=== PATIENT | male | born 1960 | race Caucasian/White ===

== ENCOUNTER → 2019-12-08 14:21 | Outpatient (CLI) | payer OTHER, SELFPAY ==
--- NOTE | 2019-12-08 14:46 | DI.RAD.S_ITS ---
PROCEDURE: XR FOOT LT MIN 3V INDICATIONS: foot pain getting worse/feels dislocated TECHNIQUE: 3 views of the foot were acquired. COMPARISON: None. FINDINGS: Bones: No fractures or dislocations. No suspicious bony lesions. Soft tissues: No tibiotalar joint effusion. Achilles tendon appears normal. IMPRESSION: No evidence acute bony abnormality of the left foot. If clinical suspicion and/or symptoms persist, further assessment with repeat plain films, or advanced imaging (e.g., CT, MRI, or bone scan) may be helpful for further assessment. Dictated by: Christ Fernández M.D. on 12/08/2019 at 15:35 Approved by: Christ Fernández M.D. on 12/08/2019 at 15:40
== END ==
PROVIDERS: PCP Registered Nurse; Referring Provider Registered Nurse; Visit Provider Registered Nurse
DX: M79.672 Pain in left foot (principal)
CPT/HCPCS: 73630

== ENCOUNTER 2020-02-10 11:15 | Outpatient (RCR) | payer OTHER, SELFPAY ==
--- NOTE | 2020-01-05 16:49 | PT.OIE ---
Current Diagnoses Pain in right hip (01/04/20) Stiffness of right hip, not elsewhere classified (01/04/20) Difficulty in walking, not elsewhere classified (01/04/20) Weakness (01/04/20) Past Medical History (Last Updated 12/20/19 @ 13:08 by MERARY Rice) Toe pain, left (Acute) Visit Care Team Role Provider Type MERARY Rice Attending Provider Advanced Principal Android Developer Primary Care Provider Referring Provider Specialty: Medical Address: [address] [place] [address], [facility] Email: [email or web address] Physical Therapy Initial Evaluation PT-OP-A Visit Information Start: 01/04/20 11:11 Freq: Status: Active Protocol: Document 01/04/20 11:12 SAK (Rec: 01/04/20 12:23 SAK [id number]) Out-Patient Physical Therapy Visit Information Visit Information Visit Type Initial Evaluation Visit Start Time 11:15 Visit Stop Time 12:12 Total Visit Minutes 57 Visit Number 1 Evaluation Information Evaluation Date 01/04/20 Precautions Precautions right sided hernia PT-OP-B Current Condition Start: 01/04/20 11:11 Freq: Status: Active Protocol: Document 01/04/20 11:12 SAK (Rec: 01/04/20 12:23 SAK [id number]) Current Condition History of Current Condition Onset Date 1 1/2 yrs Current Complaints right hip pain History of Current Condition immediate onset of pain while running around 1 1/2 yrs ago with no known cause, came and went, felt more with running more often past few months due to Covid19. Tends to swim more for exercise but due to pandemic has been running more . Around 26 of November had some sort of sciatica thing where I could hardly move. Hip pain is lateral some posterior. Has stopped running for about 1 month. Has been swimming [employer]. No numbness or tingling. Sits at desk for work. The pain gets worse with sitting at times. Plays upright base, tends to rest more on right LE. Wears shoe inserts halle, had recent toe fracture , occasional feeling of lateral toes left foot like it's dislocating. Hernia right side that needs to be repaired . Prior Treatments and Tests left toe fracture. Treatment Goals Patient/Caregiver Goals Minimize or eliminate pain Prior Functional Status Baseline Function- ADL's Independent Baseline Function- Mobility Independent Baseline Function- Gait independent no pain Baseline Function- Work/School no pain Baseline Function- Recreation/Hobbies swim, run, hike Current Functional Impairments (Reported) Functional Limitations- Work/School some increase pain with sitting at times; patient has 1 monitor forward, 1 to the left Functional Limitations- Recreation/ painful running Hobbies PT-OP-C Subjective Start: 01/04/20 11:11 Freq: Status: Active Protocol: Document 01/04/20 11:12 SAK (Rec: 01/05/20 14:30 SAK [id number]) Patient Questionnaires Lower Extremity Functional Scale LEFS Score 79% PT-OP-G Mobility & Gait Start: 01/04/20 11:11 Freq: Status: Active Protocol: Document 01/04/20 11:12 SAK (Rec: 01/05/20 14:30 SAK [id number]) OP Mobility Evaluation Functional Movements Squats Can get most of way into Corinne squat though with less mobility right vs left Running Assessment next session Other Functional Movements Instructed in need to examine his habits of positioning and movement PT-OP-J Posture/Palpation/Skin Start: 01/04/20 11:11 Freq: Status: Active Protocol: Document 01/04/20 11:12 SAK (Rec: 01/05/20 14:30 [facility] [id number]) Posture Evaluation Position Standing Head/C-Spine Posture Forward Head T-Spine Posture Increased Kyphosis L-Spine Posture Flattened Scapula Posture (L) Protracted,(R) Protracted Arm Posture (L) Internally Rotated,(R) Internally Rotated Pelvis Posture Posterior Tilted,(R) ASIS Posterior Weight Distribution Weight Shifted Left Knee Posture (R) Genu Varus,(L) Genu Valgus Ankle/Foot Posture (L) Neutral,(R) Neutral Palpation Assessment Location piriformis Palpation Location right Palpation Findings Tenderness,Trigger Point gluteus medius Palpation Location right Palpation Findings Tenderness IT band Palpation Location right Palpation Findings Tenderness Palpation Details priximal tenderness PT-OP-K Range of Motion Start: 01/04/20 11:11 Freq: Status: Active Protocol: Document 01/04/20 11:12 SAK (Rec: 01/05/20 14:30 SAK [id number]) Lumbar Spine Range of Motion Lumbar Spine Active Flexion 40 Extension 20 Rotation Left 40 Rotation Right 40 Lateral Flexion Left 45 Lateral Flexion Right 45 ROM Limitations Soft Tissue Tightness Hip Goniometric Range of Motion Hip right Testing Position Supine Straight Leg Raise 60 Extension 15 Internal Rotation 15 External Rotation 55 left Testing Position Supine Straight Leg Raise 65 Extension 15 Internal Rotation 20 External Rotation 60 Hip ROM Limitations Hip ROM Limitations Soft Tissue Tightness,Pain PT-OP-L Special Tests Start: 01/04/20 11:11 Freq: Status: Active Protocol: Document 01/04/20 11:12 [facility] (Rec: 01/05/20 14:30 [facility] [id number]) Special Tests Hip Special Tests Straight Leg Raise Test Results negative for radicular symptoms, HS tightness only Scour Test Test Results negative for hip joint pathology PT-OP-M Strength Start: 01/04/20 11:11 Freq: Status: Active Protocol: Document 01/04/20 11:12 [facility] (Rec: 01/05/20 14:30 [facility] [id number]) Hip Strength Hip Manual Muscle Testing Right Flexion (L2) 4- Good- Extension (S1) 4- Good- Abduction 4- Good- External Rotation 4- Good- Internal Rotation 4- Good- Left Flexion (L2) 4 Good Extension (S1) 4 Good Abduction 4- Good- Internal Rotation 4 Good Knee Strength Knee Manual Muscle Testing halle Flexion (S2) 5 Normal Extension (L3) 5 Normal PT-OP-Q Treatments Start: 01/04/20 11:11 Freq: Status: Active Protocol: Document 01/04/20 11:12 [facility] (Rec: 01/05/20 14:30 [facility] [id number]) Manual Therapy Treatment Soft Tissue Mobilization glut med Mobilization Type Instrument Assisted Body Position Supine Comments instructed in use of raquetball piriformis Mobilization Type Instrument Assisted Body Position Supine Comments instructed in use of raquetball at home 1 Body Location IT band Mobilization Type Instrument Assisted Intensity/Depth Moderate Body Position Sidelying Comments Instructed in use of raquetball or foam roller at home Self-Care/Home Management Treatment Education Patient Education Body Mechanics,Pain Management ,Posture Other Education Pay attention to habitual postures and movements including how he stands to play upright base Activities Self-Care/Home Management Activities use of ball, foam roller, ice, heat PT-OP-R Modalities Start: 08/11/20 11:11 Freq: Status: Active Protocol: Document 01/04/20 11:12 [facility] (Rec: 01/05/20 14:30 [facility] [id number]) Hot Pack/Cold Pack Treatment moist heat Location it band, piriformis Patient Position Hooklying Patient Tolerance Good Ultrasound Therapy Treatment piriformis, proximal IT band Treatment Duration (minutes) 8 Patient Position Prone Coupling Medium Ultrasound Gel Frequency Setting (mHz) 1 Mode Setting Continuous Intensity Setting (w/cm2) 1.4 PT-OP-T Assessment and Plan Start: 01/04/20 11:11 Freq: Status: Active Protocol: Document 01/04/20 11:12 [facility] (Rec: 01/05/20 14:30 [facility] [id number]) Physical Therapy Assessment Rehab Potential Rehabilitation Potential Excellent Evaluation Complexity Number of Personal Factors/Comorbidities 1-2 Number of Body Systems Impaired 3 Clinical Presentation at Evaluation Stable Impairments Impairments Activity Tolerance,Pain,Soft Tissue Mobility,Strength Goals Three Impairment weakness and decreased flexibility bilateral hips R>L Baby Doctor Goal (LTG) Patient flexibility and strength to be WNL bilateral hips with patient independent in HEP LTG Duration 03/05/20 Two Impairment Lower extremity functinal scale 79% Assisted Goal (LTG) Improve LEFS score to at least 92% including ability to resume typical running schedule without an increase in pain LTG Duration 03/05/20 One Impairment pain 6/10 right SI, piriformis , lateral hip Assisted Goal (LTG) Decrease pain to no greater than 1-2/10 with all usual activities LTG Duration 03/05/20 Assessment Summary Assessment Patient presents with function -limiting pain right lateral and posterior hip/SI with some radiating pain at times posterior thigh. He has weakness in his hips right greater than left, some pelvic asymmetry which appears due to muscle imbalances and feel his postural and movement habits may be contributory to his pain. Additionally will need to look at his footwear for running . Feel he would benefit from skilled physical therapy to address all impairment areas and return him to pain-free function. Physical Therapy Plan Frequency and Duration Frequency of Treatment 2x/Week Duration of Treatment 8 wks Plan of Care Start Date 01/04/20 Plan of Care End Date 03/05/20 Therapeutic Interventions Therapeutic Interventions Aquatic Therapy,Home Exercise Program,Manual Therapy, Neuromuscular Re-education, Patient/Caregiver Education, Self-Care/Home Management,Soft Tissue Mobilization,Taping, Therapeutic Activities, Therapeutic Exercises Modalities Cold Pack/Ice Massage,Electric Stimulation,Hot Packs, Iontophoresis,Ultrasound Next Visit Focus/Plan Next Note Type Treatment Note Next Visit Plan Review HEP, evaluate running form on treadmill, progress ther ex, manual treatment as indicated.
--- NOTE | 2020-01-05 16:49 | PT.OPPOC ---
Physical, Occupational & Speech Therapy At [facility] Current Diagnoses Pain in right hip (01/04/20) Stiffness of right hip, not elsewhere classified (01/04/20) Difficulty in walking, not elsewhere classified (01/04/20) Weakness (01/04/20) Visit Care Team Role Provider Type MERARY Rice Attending Provider Advanced Mathematics Faculty Member Primary Care Provider Referring Provider Specialty: Medical Address: [address] [place] [address], [facility] Email: [email or web address] Plan Of Care PT-OP-T Assessment and Plan Start: 01/04/20 11:11 Freq: Status: Active Protocol: Document 01/04/20 11:12 ALBERT (Rec: 01/05/20 14:30 SAK [id number]) Physical Therapy Assessment Rehab Potential Rehabilitation Potential Excellent Evaluation Complexity Number of Personal Factors/Comorbidities 1-2 Number of Body Systems Impaired 3 Clinical Presentation at Evaluation Stable Impairments Impairments Activity Tolerance,Pain,Soft Tissue Mobility,Strength Goals Three Impairment weakness and decreased flexibility bilateral hips R>L Construction Pit Worker Goal (LTG) Patient flexibility and strength to be WNL bilateral hips with patient independent in HEP LTG Duration 03/05/20 Two Impairment Lower extremity functinal scale 79% Construction Pit Worker Goal (LTG) Improve LEFS score to at least 92% including ability to resume typical running schedule without an increase in pain LTG Duration 03/05/20 One Impairment pain 6/10 right SI, piriformis , lateral hip Construction Pit Worker Goal (LTG) Decrease pain to no greater than 1-2/10 with all usual activities LTG Duration 03/05/20 Assessment Summary Assessment Patient presents with function -limiting pain right lateral and posterior hip/SI with some radiating pain at times posterior thigh. He has weakness in his hips right greater than left, some pelvic asymmetry which appears due to muscle imbalances and feel his postural and movement habits may be contributory to his pain. Additionally will need to look at his footwear for running . Feel he would benefit from skilled physical therapy to address all impairment areas and return him to pain-free function. Physical Therapy Plan Frequency and Duration Frequency of Treatment 2x/Week Duration of Treatment 8 wks Plan of Care Start Date 01/04/20 Plan of Care End Date 03/05/20 Therapeutic Interventions Therapeutic Interventions Aquatic Therapy,Home Exercise Program,Manual Therapy, Neuromuscular Re-education, Patient/Caregiver Education, Self-Care/Home Management,Soft Tissue Mobilization,Taping, Therapeutic Activities, Therapeutic Exercises Modalities Cold Pack/Ice Massage,Electric Stimulation,Hot Packs, Iontophoresis,Ultrasound Next Visit Focus/Plan Next Note Type Treatment Note Next Visit Plan Review HEP, evaluate running form on treadmill, progress ther ex, manual treatment as indicated. Plan of Care Dates Plan of Care Start Date 01/04/20 Plan of Care End Date 03/05/20 Electronically Signed by: Aline Presley, PT 01/05/20 [id number] Please Sign and Return: I have reviewed this Plan of Care and certify that the skilled therapy services above are required to meet the patient?s needs. Physician Signature Date Printed Name and Credentials Clinical Instructor Signature Printed Name and Credentials
--- NOTE | 2020-01-06 17:11 | PT.OTN ---
Current Diagnoses Pain in right hip (01/06/20) Stiffness of right hip, not elsewhere classified (01/06/20) Difficulty in walking, not elsewhere classified (01/06/20) Weakness (01/06/20) Physical Therapy Treatment Note PT-OP-A Visit Information Start: 01/04/20 11:11 Freq: Status: Active Protocol: Document 01/06/20 12:59 SAK (Rec: 01/06/20 13:51 SAK [id number]) Out-Patient Physical Therapy Visit Information Visit Information Visit Type Treatment Note Visit Start Time 13:00 Visit Stop Time 13:55 Total Visit Minutes 55 Visit Number 2 Evaluation Information Evaluation Date 01/04/20 Precautions Precautions right sided hernia PT-OP-B Current Condition Start: 01/04/20 11:11 Freq: Status: Active Protocol: Document 01/04/20 11:12 SAK (Rec: 01/04/20 12:23 SAK [id number]) Current Condition History of Current Condition Onset Date 1 1/2 yrs Current Complaints right hip pain History of Current Condition immediate onset of pain while running around 1 1/2 yrs ago with no known cause, came and went, felt more with running more often past few months due to Covid19. Tends to swim more for exercise but due to pandemic has been running more . Around 26 of November had some sort of sciatica thing where I could hardly move. Hip pain is lateral some posterior. Has stopped running for about 1 month. Has been swimming [employer] No numbness or tingling. Sits at desk for work. The pain gets worse with sitting at times. Plays upright base, tends to rest more on right LE. Wears shoe inserts halle, had recent toe fracture , occasional feeling of lateral toes left foot like it's dislocating. Hernia right side that needs to be repaired . Prior Treatments and Tests left toe fracture. Treatment Goals Patient/Caregiver Goals Minimize or eliminate pain Prior Functional Status Baseline Function- ADL's Independent Baseline Function- Mobility Independent Baseline Function- Gait independent no pain Baseline Function- Work/School no pain Baseline Function- Recreation/Hobbies swim, run, hike Current Functional Impairments (Reported) Functional Limitations- Work/School some increase pain with sitting at times; patient has 1 monitor forward, 1 to the left Functional Limitations- Recreation/ painful running Hobbies PT-OP-C Subjective Start: 01/04/20 11:11 Freq: Status: Active Protocol: Document 01/06/20 12:59 SAK (Rec: 01/06/20 13:51 SAK [id number]) OP-PT Subjective Patient Comments Patient Comments Reports felt ok after first treatment, felt ultrasound and heat helpful. Has done some of the stretches and used a foam roller as instructed, hasn't tried raquetball yet. Feels figure-4 stretch most helpful so far. PT-OP-G Mobility & Gait Start: 01/04/20 11:11 Freq: Status: Active Protocol: Document 01/04/20 11:12 SAK (Rec: 01/05/20 14:30 SAK [id number]) OP Mobility Evaluation Functional Movements Squats Can get most of way into Corinne squat though with less mobility right vs left Running Assessment next session Other Functional Movements Instructed in need to examine his habits of positioning and movement PT-OP-J Posture/Palpation/Skin Start: 01/04/20 11:11 Freq: Status: Active Protocol: Document 01/04/20 11:12 [facility] (Rec: 01/05/20 14:30 [facility] [id number]) Posture Evaluation Position Standing Head/C-Spine Posture Forward Head T-Spine Posture Increased Kyphosis L-Spine Posture Flattened Scapula Posture (L) Protracted,(R) Protracted Arm Posture (L) Internally Rotated,(R) Internally Rotated Pelvis Posture Posterior Tilted,(R) ASIS Posterior Weight Distribution Weight Shifted Left Knee Posture (R) Genu Varus,(L) Genu Valgus Ankle/Foot Posture (L) Neutral,(R) Neutral Palpation Assessment Location piriformis Palpation Location right Palpation Findings Tenderness,Trigger Point gluteus medius Palpation Location right Palpation Findings Tenderness IT band Palpation Location right Palpation Findings Tenderness Palpation Details priximal tenderness PT-OP-K Range of Motion Start: 01/04/20 11:11 Freq: Status: Active Protocol: Document 01/04/20 11:12 SAK (Rec: 01/05/20 14:30 SAK [id number]) Lumbar Spine Range of Motion Lumbar Spine Active Flexion 40 Extension 20 Rotation Left 40 Rotation Right 40 Lateral Flexion Left 45 Lateral Flexion Right 45 ROM Limitations Soft Tissue Tightness Hip Goniometric Range of Motion Hip right Testing Position Supine Straight Leg Raise 60 Extension 15 Internal Rotation 15 External Rotation 55 left Testing Position Supine Straight Leg Raise 65 Extension 15 Internal Rotation 20 External Rotation 60 Hip ROM Limitations Hip ROM Limitations Soft Tissue Tightness,Pain PT-OP-L Special Tests Start: 01/04/20 11:11 Freq: Status: Active Protocol: Document 01/04/20 11:12 SAK (Rec: 01/05/20 14:30 SAK [id number]) Special Tests Hip Special Tests Straight Leg Raise Test Results negative for radicular symptoms, HS tightness only Scour Test Test Results negative for hip joint pathology PT-OP-M Strength Start: 01/04/20 11:11 Freq: Status: Active Protocol: Document 01/04/20 11:12 SAK (Rec: 01/05/20 14:30 SAK [id number]) Hip Strength Hip Manual Muscle Testing Right Flexion (L2) 4- Good- Extension (S1) 4- Good- Abduction 4- Good- External Rotation 4- Good- Internal Rotation 4- Good- Left Flexion (L2) 4 Good Extension (S1) 4 Good Abduction 4- Good- Internal Rotation 4 Good Knee Strength Knee Manual Muscle Testing halle Flexion (S2) 5 Normal Extension (L3) 5 Normal PT-OP-Q Treatments Start: 01/04/20 11:11 Freq: Status: Active Protocol: Document 01/06/20 12:59 [facility] (Rec: 01/06/20 17:05 [facility] [id number]) Cardio Equipment Treadmill Duration (Minutes) 5 Speed 2.0 Incline 0 Other for gait evaluation, noted increased ER and eversion right Therapeutic Exercises Supine Exercises HS Side bilateral figure -4 Side left Reps/Minutes 2x30 Sitting Exercises piriformis stretch Side bilateral Reps/Minutes 2x30 Standing Exercises IT band stretch Side bilateral Reps/Minutes 2x30 Comments UE overhead HS stretch Side bilateral Equipment Used stair Reps/Minutes 2x30 Comments neutral and with IR HC stretch Side bilateral Equipment Used LUIS Reps/Minutes 3 min Comments active and passive Self-Care/Home Management Treatment Education Patient Education Home Exercise Program Other Education updated HEP Shown anatomy of hip via Ipad anatomy greta. Instructed to stretch when muscles warm as possible. PT-OP-R Modalities Start: 01/04/20 11:11 Freq: Status: Active Protocol: Document 01/06/20 12:59 SAK (Rec: 01/06/20 17:05 SAK [id number]) Hot Pack/Cold Pack Treatment moist heat Location it band, piriformis Patient Position Sidelying Patient Tolerance Good Ultrasound Therapy Treatment piriformis, proximal IT band Treatment Duration (minutes) 8 Patient Position Sidelying Coupling Medium Ultrasound Gel Frequency Setting (mHz) 1 Mode Setting Continuous Intensity Setting (w/cm2) 1.4 Comments left piriformis PT-OP-T Assessment and Plan Start: 01/04/20 11:11 Freq: Status: Active Protocol: Document 01/06/20 12:59 [facility] (Rec: 01/06/20 17:09 [facility] [id number]) Physical Therapy Assessment Goals Three Impairment weakness and decreased flexibility bilateral hips R>L Acting Teacher Goal (LTG) Patient flexibility and strength to be WNL bilateral hips with patient independent in HEP LTG Duration 03/05/20 Two Impairment Lower extremity functinal scale 79% Acting Teacher Goal (LTG) Improve LEFS score to at least 92% including ability to resume typical running schedule without an increase in pain LTG Duration 03/05/20 One Impairment pain 6/10 right SI, piriformis , lateral hip [facility] Goal (LTG) Decrease pain to no greater than 1-2/10 with all usual activities LTG Duration 03/05/20 Assessment Summary Assessment Best targeted stretches today figure -4 supine, seated hip ER stretch knee toward opposite shoulder, and standing IT band stretch. Palpable tightness right piriformis. Patient demonstrated good understanding of hip anatomy, verbalized we are zeroing in on this at end of treatment. Physical Therapy Plan Frequency and Duration Frequency of Treatment 2x/Week Duration of Treatment 8 wks Plan of Care Start Date 01/04/20 Plan of Care End Date 03/05/20 Therapeutic Interventions Therapeutic Interventions Aquatic Therapy,Home Exercise Program,Manual Therapy, Neuromuscular Re-education, Patient/Caregiver Education, Self-Care/Home Management,Soft Tissue Mobilization,Taping, Therapeutic Activities, Therapeutic Exercises Modalities Cold Pack/Ice Massage,Electric Stimulation,Hot Packs, Iontophoresis,Ultrasound Next Visit Focus/Plan Next Note Type Treatment Note Next Visit Plan manual DTM to right piriformis , continue ther ex for strengthening and flexibility of hips. Modalities PRN.
--- NOTE | 2020-01-13 10:30 | PT.OTN ---
Current Diagnoses Pain in right hip (01/13/20) Stiffness of right hip, not elsewhere classified (01/13/20) Difficulty in walking, not elsewhere classified (01/13/20) Weakness (01/13/20) Physical Therapy Treatment Note PT-OP-A Visit Information Start: 01/04/20 11:11 Freq: Status: Active Protocol: Document 01/13/20 10:05 DCW (Rec: 01/13/20 10:30 DCW [id number]) Out-Patient Physical Therapy Visit Information Visit Information Visit Type Treatment Note Visit Note 20 min late Visit Start Time 10:05 Visit Stop Time 10:30 Total Visit Minutes 25 Visit Number 3 Evaluation Information Evaluation Date 01/04/20 Precautions Precautions right sided hernia PT-OP-B Current Condition Start: 01/04/20 11:11 Freq: Status: Active Protocol: Document 01/04/20 11:12 SAK (Rec: 01/04/20 12:23 SAK [id number]) Current Condition History of Current Condition Onset Date 1 1/2 yrs Current Complaints right hip pain History of Current Condition immediate onset of pain while running around 1 1/2 yrs ago with no known cause, came and went, felt more with running more often past few months due to Covid19. Tends to swim more for exercise but due to pandemic has been running more . Around 26 of November had some sort of sciatica thing where I could hardly move. Hip pain is lateral some posterior. Has stopped running for about 1 month. Has been swimming [employer]. No numbness or tingling. Sits at desk for work. The pain gets worse with sitting at times. Plays upright base, tends to rest more on right LE. Wears shoe inserts halle, had recent toe fracture , occasional feeling of lateral toes left foot like it's dislocating. Hernia right side that needs to be repaired . Prior Treatments and Tests left toe fracture. Treatment Goals Patient/Caregiver Goals Minimize or eliminate pain Prior Functional Status Baseline Function- ADL's Independent Baseline Function- Mobility Independent Baseline Function- Gait independent no pain Baseline Function- Work/School no pain Baseline Function- Recreation/Hobbies swim, run, hike Current Functional Impairments (Reported) Functional Limitations- Work/School some increase pain with sitting at times; patient has 1 monitor forward, 1 to the left Functional Limitations- Recreation/ painful running Hobbies PT-OP-C Subjective Start: 01/04/20 11:11 Freq: Status: Active Protocol: Document 01/13/20 10:05 DCW (Rec: 01/13/20 10:30 DCW [id number]) OP-PT Subjective Patient Comments Patient Comments Pt arrives today with a new referral asking for US treatment of his foot. Unfortunately, due to his late arrival today, this will not be adddressed at this appointment, but at a later time. PT-OP-G Mobility & Gait Start: 01/04/20 11:11 Freq: Status: Active Protocol: Document 01/04/20 11:12 SAK (Rec: 01/05/20 14:30 SAK [id number]) OP Mobility Evaluation Functional Movements Squats Can get most of way into Corinne squat though with less mobility right vs left Running Assessment next session Other Functional Movements Instructed in need to examine his habits of positioning and movement PT-OP-J Posture/Palpation/Skin Start: 01/04/20 11:11 Freq: Status: Active Protocol: Document 01/04/20 11:12 SAK (Rec: 01/05/20 14:30 SAK [id number]) Posture Evaluation Position Standing Head/C-Spine Posture Forward Head T-Spine Posture Increased Kyphosis L-Spine Posture Flattened Scapula Posture (L) Protracted,(R) Protracted Arm Posture (L) Internally Rotated,(R) Internally Rotated Pelvis Posture Posterior Tilted,(R) ASIS Posterior Weight Distribution Weight Shifted Left Knee Posture (R) Genu Varus,(L) Genu Valgus Ankle/Foot Posture (L) Neutral,(R) Neutral Palpation Assessment Location piriformis Palpation Location right Palpation Findings Tenderness,Trigger Point gluteus medius Palpation Location right Palpation Findings Tenderness IT band Palpation Location right Palpation Findings Tenderness Palpation Details priximal tenderness PT-OP-K Range of Motion Start: 01/04/20 11:11 Freq: Status: Active Protocol: Document 01/04/20 11:12 SAK (Rec: 01/05/20 14:30 SAK [id number]) Lumbar Spine Range of Motion Lumbar Spine Active Flexion 40 Extension 20 Rotation Left 40 Rotation Right 40 Lateral Flexion Left 45 Lateral Flexion Right 45 ROM Limitations Soft Tissue Tightness Hip Goniometric Range of Motion Hip right Testing Position Supine Straight Leg Raise 60 Extension 15 Internal Rotation 15 External Rotation 55 left Testing Position Supine Straight Leg Raise 65 Extension 15 Internal Rotation 20 External Rotation 60 Hip ROM Limitations Hip ROM Limitations Soft Tissue Tightness,Pain PT-OP-L Special Tests Start: 01/04/20 11:11 Freq: Status: Active Protocol: Document 01/04/20 11:12 SAK (Rec: 01/05/20 14:30 SAK [id number]) Special Tests Hip Special Tests Straight Leg Raise Test Results negative for radicular symptoms, HS tightness only Scour Test Test Results negative for hip joint pathology PT-OP-M Strength Start: 01/04/20 11:11 Freq: Status: Active Protocol: Document 01/04/20 11:12 SAK (Rec: 01/05/20 14:30 SAK [id number]) Hip Strength Hip Manual Muscle Testing Right Flexion (L2) 4- Good- Extension (S1) 4- Good- Abduction 4- Good- External Rotation 4- Good- Internal Rotation 4- Good- Left Flexion (L2) 4 Good Extension (S1) 4 Good Abduction 4- Good- Internal Rotation 4 Good Knee Strength Knee Manual Muscle Testing halle Flexion (S2) 5 Normal Extension (L3) 5 Normal PT-OP-Q Treatments Start: 01/04/20 11:11 Freq: Status: Active Protocol: Document 01/13/20 10:05 DCW (Rec: 01/13/20 10:30 DCW [id number]) Therapeutic Exercises Supine Exercises HS Supine Exercise Name HS stretch Side bilateral figure -4 Supine Exercise Name Figure-4, Knee to opposite shoulder Side right Reps/Minutes 2x30 Manual Therapy Treatment Soft Tissue Mobilization piriformis Body Location R Piriformis Body Position Sidelying PT-OP-R Modalities Start: 01/04/20 11:11 Freq: Status: Active Protocol: Document 01/06/20 12:59 SAK (Rec: 01/06/20 17:05 SAK [id number]) Hot Pack/Cold Pack Treatment moist heat Location it band, piriformis Patient Position Sidelying Patient Tolerance Good Ultrasound Therapy Treatment piriformis, proximal IT band Treatment Duration (minutes) 8 Patient Position Sidelying Coupling Medium Ultrasound Gel Frequency Setting (mHz) 1 Mode Setting Continuous Intensity Setting (w/cm2) 1.4 Comments left piriformis PT-OP-T Assessment and Plan Start: 01/04/20 11:11 Freq: Status: Active Protocol: Document 01/13/20 10:05 DCW (Rec: 01/13/20 10:30 DCW [id number]) Physical Therapy Assessment Goals Three Impairment weakness and decreased flexibility bilateral hips R>L Project Development Director Goal (LTG) Patient flexibility and strength to be WNL bilateral hips with patient independent in HEP LTG Duration 03/05/20 Two Impairment Lower extremity functinal scale 79% Project Development Director Goal (LTG) Improve LEFS score to at least 92% including ability to resume typical running schedule without an increase in pain LTG Duration 03/05/20 One Impairment pain 6/10 right SI, piriformis , lateral hip [facility] Goal (LTG) Decrease pain to no greater than 1-2/10 with all usual activities LTG Duration 03/05/20 Assessment Summary Assessment Treatment extremely limited today, as he arrived 20 minutes late. Pt very sensitive to even light pressure on R piriformis. Did very well with knee-to- opposite shoulder stretching, felt it really pinpointed the problem area. Pt also refused heat today, in a hurry to get back home. Physical Therapy Plan Frequency and Duration Frequency of Treatment 2x/Week Duration of Treatment 8 wks Plan of Care Start Date 01/04/20 Plan of Care End Date 03/05/20 Therapeutic Interventions Therapeutic Interventions Aquatic Therapy,Home Exercise Program,Manual Therapy, Neuromuscular Re-education, Patient/Caregiver Education, Self-Care/Home Management,Soft Tissue Mobilization,Taping, Therapeutic Activities, Therapeutic Exercises Modalities Cold Pack/Ice Massage,Electric Stimulation,Hot Packs, Iontophoresis,Ultrasound Next Visit Focus/Plan Next Note Type Treatment Note Next Visit Plan manual DTM to right piriformis , continue ther ex for strengthening and flexibility of hips. Modalities PRN. Possible assessment of foot, per new referral
--- NOTE | 2020-01-17 10:30 | PT.OTN ---
Current Diagnoses Pain in right hip (01/17/20) Stiffness of right hip, not elsewhere classified (01/17/20) Difficulty in walking, not elsewhere classified (01/17/20) Weakness (01/17/20) Physical Therapy Treatment Note PT-OP-A Visit Information Start: 01/04/20 11:11 Freq: Status: Active Protocol: Document 01/17/20 09:45 SP (Rec: 01/17/20 11:37 SP [id number]) Out-Patient Physical Therapy Visit Information Visit Information Visit Type Treatment Note Visit Note Possible assessment of foot, per new referral. Visit Start Time 09:45 Visit Stop Time 10:30 Total Visit Minutes 45 Visit Number 4 Number of SONG AND DANCE PERFORMER Visits 1 PT-OP-B Current Condition Start: 01/04/20 11:11 Freq: Status: Active Protocol: Document 01/04/20 11:12 SAK (Rec: 01/04/20 12:23 SAK [id number]) Current Condition History of Current Condition Onset Date 1 1/2 yrs Current Complaints right hip pain History of Current Condition immediate onset of pain while running around 1 1/2 yrs ago with no known cause, came and went, felt more with running more often past few months due to Covid19. Tends to swim more for exercise but due to pandemic has been running more . Around 26 of November had some sort of sciatica thing where I could hardly move. Hip pain is lateral some posterior. Has stopped running for about 1 month. Has been swimming [employer]. No numbness or tingling. Sits at desk for work. The pain gets worse with sitting at times. Plays upright base, tends to rest more on right LE. Wears shoe inserts halle, had recent toe fracture , occasional feeling of lateral toes left foot like it's dislocating. Hernia right side that needs to be repaired . Prior Treatments and Tests left toe fracture. Treatment Goals Patient/Caregiver Goals Minimize or eliminate pain Prior Functional Status Baseline Function- ADL's Independent Baseline Function- Mobility Independent Baseline Function- Gait independent no pain Baseline Function- Work/School no pain Baseline Function- Recreation/Hobbies swim, run, hike Current Functional Impairments (Reported) Functional Limitations- Work/School some increase pain with sitting at times; patient has 1 monitor forward, 1 to the left Functional Limitations- Recreation/ painful running Hobbies PT-OP-C Subjective Start: 01/04/20 11:11 Freq: Status: Active Protocol: Document 01/17/20 09:45 SP (Rec: 01/17/20 11:37 SP [id number]) OP-PT Subjective Patient Comments Patient Comments 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 Pt stated R PF doing good today. Has been swimming [place] and went [place] over the weekend. Still wanting to know the route of R hip pain. PT-OP-G Mobility & Gait Start: 01/04/20 11:11 Freq: Status: Active Protocol: Document 01/04/20 11:12 SAK (Rec: 01/05/20 14:30 SAK [id number]) OP Mobility Evaluation Functional Movements Squats Can get most of way into Corinne squat though with less mobility right vs left Running Assessment next session Other Functional Movements Instructed in need to examine his habits of positioning and movement PT-OP-J Posture/Palpation/Skin Start: 01/04/20 11:11 Freq: Status: Active Protocol: Document 01/04/20 11:12 SAK (Rec: 01/05/20 14:30 SAK [id number]) Posture Evaluation Position Standing Head/C-Spine Posture Forward Head T-Spine Posture Increased Kyphosis L-Spine Posture Flattened Scapula Posture (L) Protracted,(R) Protracted Arm Posture (L) Internally Rotated,(R) Internally Rotated Pelvis Posture Posterior Tilted,(R) ASIS Posterior Weight Distribution Weight Shifted Left Knee Posture (R) Genu Varus,(L) Genu Valgus Ankle/Foot Posture (L) Neutral,(R) Neutral Palpation Assessment Location piriformis Palpation Location right Palpation Findings Tenderness,Trigger Point gluteus medius Palpation Location right Palpation Findings Tenderness IT band Palpation Location right Palpation Findings Tenderness Palpation Details priximal tenderness PT-OP-K Range of Motion Start: 01/04/20 11:11 Freq: Status: Active Protocol: Document 01/04/20 11:12 SAK (Rec: 01/05/20 14:30 SAK [id number]) Lumbar Spine Range of Motion Lumbar Spine Active Flexion 40 Extension 20 Rotation Left 40 Rotation Right 40 Lateral Flexion Left 45 Lateral Flexion Right 45 ROM Limitations Soft Tissue Tightness Hip Goniometric Range of Motion Hip right Testing Position Supine Straight Leg Raise 60 Extension 15 Internal Rotation 15 External Rotation 55 left Testing Position Supine Straight Leg Raise 65 Extension 15 Internal Rotation 20 External Rotation 60 Hip ROM Limitations Hip ROM Limitations Soft Tissue Tightness,Pain PT-OP-L Special Tests Start: 01/04/20 11:11 Freq: Status: Active Protocol: Document 01/04/20 11:12 SAK (Rec: 01/05/20 14:30 SAK [id number]) Special Tests Hip Special Tests Straight Leg Raise Test Results negative for radicular symptoms, HS tightness only Scour Test Test Results negative for hip joint pathology PT-OP-M Strength Start: 01/04/20 11:11 Freq: Status: Active Protocol: Document 01/04/20 11:12 SAK (Rec: 01/05/20 14:30 SAK [id number]) Hip Strength Hip Manual Muscle Testing Right Flexion (L2) 4- Good- Extension (S1) 4- Good- Abduction 4- Good- External Rotation 4- Good- Internal Rotation 4- Good- Left Flexion (L2) 4 Good Extension (S1) 4 Good Abduction 4- Good- Internal Rotation 4 Good Knee Strength Knee Manual Muscle Testing halle Flexion (S2) 5 Normal Extension (L3) 5 Normal PT-OP-Q Treatments Start: 01/04/20 11:11 Freq: Status: Active Protocol: Document 01/17/20 09:45 SP (Rec: 01/17/20 11:37 SP [id number]) Therapeutic Exercises Supine Exercises foam roll Supine Exercise Name HS, glut, ITB, calf, TS ext and roll Reps/Minutes 5 min Comments add HEP: cued slow safety pacing and proper form HS Supine Exercise Name HS stretch Side bilateral figure -4 Supine Exercise Name Figure-4, Knee to opposite shoulder Side right Reps/Minutes 2x30 Sitting Exercises QL stretch Sitting Exercise Name lat side bend Reps/Minutes 30 x2 Comments cued set up and proper form HS stretch Reps/Minutes 60 Sec prim lateral Comments cued hip hinge piriformis stretch Side bilateral Reps/Minutes 2x30 Standing Exercises HS stretch Standing Exercise Name HEP review Side bilateral Equipment Used table Reps/Minutes 2x30 Comments neutral and with IR PT-OP-R Modalities Start: 01/04/20 11:11 Freq: Status: Active Protocol: Document 01/06/20 12:59 SAK (Rec: 01/06/20 17:05 SAK [id number]) Hot Pack/Cold Pack Treatment moist heat Location it band, piriformis Patient Position Sidelying Patient Tolerance Good Ultrasound Therapy Treatment piriformis, proximal IT band Treatment Duration (minutes) 8 Patient Position Sidelying Coupling Medium Ultrasound Gel Frequency Setting (mHz) 1 Mode Setting Continuous Intensity Setting (w/cm2) 1.4 Comments left piriformis PT-OP-T Assessment and Plan Start: 01/04/20 11:11 Freq: Status: Active Protocol: Document 01/17/20 09:45 SP (Rec: 01/17/20 11:37 SP [id number]) Physical Therapy Assessment Goals Three Impairment weakness and decreased flexibility bilateral hips R>L Consumer Affairs Director Goal (LTG) Patient flexibility and strength to be WNL bilateral hips with patient independent in HEP LTG Duration 03/05/20 Two Impairment Lower extremity functinal scale 79% Consumer Affairs Director Goal (LTG) Improve LEFS score to at least 92% including ability to resume typical running schedule without an increase in pain LTG Duration 03/05/20 One Impairment pain 6/10 right SI, piriformis , lateral hip Consumer Affairs Director Goal (LTG) Decrease pain to no greater than 1-2/10 with all usual activities LTG Duration 03/05/20 Assessment Summary Assessment Gave purple slip to add more appts. Tx focused on HEP stretching and self STMs using foam roller has at home with good feedback results. Cuing given for set up and proper form to decrease reported R PF tightness. Pt found TS ext helped alot loosening up LS. Physical Therapy Plan Frequency and Duration Frequency of Treatment 2x/Week Duration of Treatment 8 wks Plan of Care Start Date 01/04/20 Plan of Care End Date 03/05/20 Therapeutic Interventions Therapeutic Interventions Aquatic Therapy,Home Exercise Program,Manual Therapy, Neuromuscular Re-education, Patient/Caregiver Education, Self-Care/Home Management,Soft Tissue Mobilization,Taping, Therapeutic Activities, Therapeutic Exercises Modalities Cold Pack/Ice Massage,Electric Stimulation,Hot Packs, Iontophoresis,Ultrasound Next Visit Focus/Plan Next Note Type Treatment Note Next Visit Plan Possible assessment of foot, per new referral next tx with PT!! Assess response to last tx: HEP stretching of hips and L/S review: added sup/seated/ standing stretches to HEP and self foam rolling to assist. Continue ther ex for strengthening and flexibility of hips next tx as tolerates. Modalities PRN.
--- NOTE | 2020-01-20 17:33 | PT.OTN ---
Current Diagnoses Pain in right hip (01/20/20) Stiffness of right hip, not elsewhere classified (01/20/20) Difficulty in walking, not elsewhere classified (01/20/20) Weakness (01/20/20) Physical Therapy Treatment Note PT-OP-A Visit Information Start: 01/04/20 11:11 Freq: Status: Active Protocol: Document 01/20/20 09:49 SAK (Rec: 01/20/20 10:33 SAK [id number]) Out-Patient Physical Therapy Visit Information Visit Information Visit Type Treatment Note Visit Start Time 09:45 Visit Stop Time 10:30 Total Visit Minutes 45 Visit Number 5 Number of INTERACTIVE MEDIA SPECIALIST Visits 0 Precautions Precautions right sided hernia PT-OP-B Current Condition Start: 01/04/20 11:11 Freq: Status: Active Protocol: Document 01/04/20 11:12 SAK (Rec: 01/04/20 12:23 [facility] [id number]) Current Condition History of Current Condition Onset Date 1 1/2 yrs Current Complaints right hip pain History of Current Condition immediate onset of pain while running around 1 1/2 yrs ago with no known cause, came and went, felt more with running more often past few months due to Covid19. Tends to swim more for exercise but due to pandemic has been running more . Around 26 of November had some sort of sciatica thing where I could hardly move. Hip pain is lateral some posterior. Has stopped running for about 1 month. Has been swimming heart [employer]. No numbness or tingling. Sits at desk for work. The pain gets worse with sitting at times. Plays upright base, tends to rest more on right LE. Wears shoe inserts halle, had recent toe fracture , occasional feeling of lateral toes left foot like it's dislocating. Hernia right side that needs to be repaired . Prior Treatments and Tests left toe fracture. Treatment Goals Patient/Caregiver Goals Minimize or eliminate pain Prior Functional Status Baseline Function- ADL's Independent Baseline Function- Mobility Independent Baseline Function- Gait independent no pain Baseline Function- Work/School no pain Baseline Function- Recreation/Hobbies swim, run, hike Current Functional Impairments (Reported) Functional Limitations- Work/School some increase pain with sitting at times; patient has 1 monitor forward, 1 to the left Functional Limitations- Recreation/ painful running Hobbies PT-OP-C Subjective Start: 01/04/20 11:11 Freq: Status: Active Protocol: Document 01/20/20 09:49 SAK (Rec: 01/20/20 10:33 SAK [id number]) OP-PT Subjective Patient Comments Patient Comments Lead Applier Dr. Odilon Ornelas ([facility]) recommended start with 5 ultrasound sessions to his foot, if helpful, do 5 more. Diagnosis neuroma. Patient states that at times feeling like his toe 3-4 left dislocating. Pain. PT-OP-G Mobility & Gait Start: 01/04/20 11:11 Freq: Status: Active Protocol: Document 01/04/20 11:12 SAK (Rec: 01/05/20 14:30 SAK [id number]) OP Mobility Evaluation Functional Movements Squats Can get most of way into Corinne squat though with less mobility right vs left Running Assessment next session Other Functional Movements Instructed in need to examine his habits of positioning and movement PT-OP-J Posture/Palpation/Skin Start: 01/04/20 11:11 Freq: Status: Active Protocol: Document 01/04/20 11:12 SAK (Rec: 01/05/20 14:30 [facility] [id number]) Posture Evaluation Position Standing Head/C-Spine Posture Forward Head T-Spine Posture Increased Kyphosis L-Spine Posture Flattened Scapula Posture (L) Protracted,(R) Protracted Arm Posture (L) Internally Rotated,(R) Internally Rotated Pelvis Posture Posterior Tilted,(R) ASIS Posterior Weight Distribution Weight Shifted Left Knee Posture (R) Genu Varus,(L) Genu Valgus Ankle/Foot Posture (L) Neutral,(R) Neutral Palpation Assessment Location piriformis Palpation Location right Palpation Findings Tenderness,Trigger Point gluteus medius Palpation Location right Palpation Findings Tenderness IT band Palpation Location right Palpation Findings Tenderness Palpation Details priximal tenderness PT-OP-K Range of Motion Start: 01/04/20 11:11 Freq: Status: Active Protocol: Document 01/04/20 11:12 SAK (Rec: 01/05/20 14:30 SAK [id number]) Lumbar Spine Range of Motion Lumbar Spine Active Flexion 40 Extension 20 Rotation Left 40 Rotation Right 40 Lateral Flexion Left 45 Lateral Flexion Right 45 ROM Limitations Soft Tissue Tightness Hip Goniometric Range of Motion Hip right Testing Position Supine Straight Leg Raise 60 Extension 15 Internal Rotation 15 External Rotation 55 left Testing Position Supine Straight Leg Raise 65 Extension 15 Internal Rotation 20 External Rotation 60 Hip ROM Limitations Hip ROM Limitations Soft Tissue Tightness,Pain PT-OP-L Special Tests Start: 01/04/20 11:11 Freq: Status: Active Protocol: Document 01/04/20 11:12 SAK (Rec: 01/05/20 14:30 SAK [id number]) Special Tests Hip Special Tests Straight Leg Raise Test Results negative for radicular symptoms, HS tightness only Scour Test Test Results negative for hip joint pathology PT-OP-M Strength Start: 01/04/20 11:11 Freq: Status: Active Protocol: Document 01/04/20 11:12 SAK (Rec: 01/05/20 14:30 SAK [id number]) Hip Strength Hip Manual Muscle Testing Right Flexion (L2) 4- Good- Extension (S1) 4- Good- Abduction 4- Good- External Rotation 4- Good- Internal Rotation 4- Good- Left Flexion (L2) 4 Good Extension (S1) 4 Good Abduction 4- Good- Internal Rotation 4 Good Knee Strength Knee Manual Muscle Testing halle Flexion (S2) 5 Normal Extension (L3) 5 Normal PT-OP-Q Treatments Start: 01/04/20 11:11 Freq: Status: Active Protocol: Document 01/20/20 09:49 [facility] (Rec: 01/20/20 10:33 [facility] [id number]) Therapeutic Exercises Supine Exercises IT band stretch Reps/Minutes 2x 30 Comments strap HS Supine Exercise Name HS stretch Side bilateral Equipment Used strap Sitting Exercises piriformis stretch Side bilateral Reps/Minutes 2x30 Manual Therapy Treatment Soft Tissue Mobilization glut med Body Location right Mobilization Type Instrument Assisted,Myofascial Release,Sustained Pressure Body Position Sidelying piriformis Body Location R Piriformis Mobilization Type Instrument Assisted,Myofascial Release,Rolling,Sustained Pressure Body Position Sidelying PT-OP-R Modalities Start: 01/04/20 11:11 Freq: Status: Active Protocol: Document 01/20/20 09:49 [facility] (Rec: 01/20/20 17:33 [facility] [id number]) Ultrasound Therapy Treatment left MTP 3rd and 4th toes Patient Position Prone Coupling Medium Ultrasound Gel Applicator Size (cm2) 2 Mode Setting Pulsed Duty Cycle 50% Intensity Setting (w/cm2) 1.0 Comments slight tingling sensation PT-OP-T Assessment and Plan Start: 01/04/20 11:11 Freq: Status: Active Protocol: Document 01/20/20 09:49 ALBERT (Rec: 01/20/20 10:33 [facility] [id number]) Physical Therapy Assessment Goals Three Impairment weakness and decreased flexibility bilateral hips R>L Ophthalmic Tech Goal (LTG) Patient flexibility and strength to be WNL bilateral hips with patient independent in HEP LTG Duration 03/05/20 Two Impairment Lower extremity functinal scale 79% Group Home Goal (LTG) Improve LEFS score to at least 92% including ability to resume typical running schedule without an increase in pain LTG Duration 03/05/20 One Impairment pain 6/10 right SI, piriformis , lateral hip Ophthalmic Tech Goal (LTG) Decrease pain to no greater than 1-2/10 with all usual activities LTG Duration 03/05/20 Assessment Summary Assessment Patient tolerated ultrasound to foot well though with reported mild tingling, not uncomfortable. Discussed footwear, potential interaction of hip and foot pain. Demonstrated good understanding of IT band stretch with strap and was issued written handout. Physical Therapy Plan Frequency and Duration Frequency of Treatment 2x/Week Duration of Treatment 8 wks Plan of Care Start Date 01/04/20 Plan of Care End Date 03/05/20 Therapeutic Interventions Therapeutic Interventions Aquatic Therapy,Home Exercise Program,Manual Therapy, Neuromuscular Re-education, Patient/Caregiver Education, Self-Care/Home Management,Soft Tissue Mobilization,Taping, Therapeutic Activities, Therapeutic Exercises Modalities Cold Pack/Ice Massage,Electric Stimulation,Hot Packs, Iontophoresis,Ultrasound Next Visit Focus/Plan Next Note Type Treatment Note Next Visit Plan Continue PT with ultrasound to left foot, continue progression of ther ex for right hip strength and flexibility.
--- NOTE | 2020-02-08 14:54 | PT.OTN ---
Current Diagnoses Pain in right hip (02/08/20) Stiffness of right hip, not elsewhere classified (02/08/20) Difficulty in walking, not elsewhere classified (02/08/20) Weakness (02/08/20) Physical Therapy Treatment Note PT-OP-A Visit Information Start: 01/04/20 11:11 Freq: Status: Active Protocol: Document 02/08/20 12:57 [facility] (Rec: 02/08/20 13:01 [facility] [id number]) Out-Patient Physical Therapy Visit Information Visit Information Visit Type Treatment Note Visit Start Time 11:20 Visit Stop Time 12:05 Total Visit Minutes 45 Visit Number 6 Number of MORTGAGE PROCESSING CLERK Visits 0 PT-OP-B Current Condition Start: 01/04/20 11:11 Freq: Status: Active Protocol: Document 01/04/20 11:12 SAK (Rec: 01/04/20 12:23 SAK [id number]) Current Condition History of Current Condition Onset Date 1 1/2 yrs Current Complaints right hip pain History of Current Condition immediate onset of pain while running around 1 1/2 yrs ago with no known cause, came and went, felt more with running more often past few months due to Covid19. Tends to swim more for exercise but due to pandemic has been running more . Around 26 of November had some sort of sciatica thing where I could hardly move. Hip pain is lateral some posterior. Has stopped running for about 1 month. Has been swimming [facility] [employer]. No numbness or tingling. Sits at desk for work. The pain gets worse with sitting at times. Plays upright base, tends to rest more on right LE. Wears shoe inserts halle, had recent toe fracture , occasional feeling of lateral toes left foot like it's dislocating. Hernia right side that needs to be repaired . Prior Treatments and Tests left toe fracture. Treatment Goals Patient/Caregiver Goals Minimize or eliminate pain Prior Functional Status Baseline Function- ADL's Independent Baseline Function- Mobility Independent Baseline Function- Gait independent no pain Baseline Function- Work/School no pain Baseline Function- Recreation/Hobbies swim, run, hike Current Functional Impairments (Reported) Functional Limitations- Work/School some increase pain with sitting at times; patient has 1 monitor forward, 1 to the left Functional Limitations- Recreation/ painful running Hobbies PT-OP-C Subjective Start: 01/04/20 11:11 Freq: Status: Active Protocol: Document 02/08/20 12:57 [facility] (Rec: 02/08/20 13:01 [facility] [id number]) OP-PT Subjective Patient Comments Patient Comments Reprots he has run some since last time. Pain goes between back and R hip as an ache. PT-OP-G Mobility & Gait Start: 01/04/20 11:11 Freq: Status: Active Protocol: Document 01/04/20 11:12 SAK (Rec: 01/05/20 14:30 SAK [id number]) OP Mobility Evaluation Functional Movements Squats Can get most of way into Corinne squat though with less mobility right vs left Running Assessment next session Other Functional Movements Instructed in need to examine his habits of positioning and movement PT-OP-J Posture/Palpation/Skin Start: 01/04/20 11:11 Freq: Status: Active Protocol: Document 01/04/20 11:12 SAK (Rec: 01/05/20 14:30 SAK [id number]) Posture Evaluation Position Standing Head/C-Spine Posture Forward Head T-Spine Posture Increased Kyphosis L-Spine Posture Flattened Scapula Posture (L) Protracted,(R) Protracted Arm Posture (L) Internally Rotated,(R) Internally Rotated Pelvis Posture Posterior Tilted,(R) ASIS Posterior Weight Distribution Weight Shifted Left Knee Posture (R) Genu Varus,(L) Genu Valgus Ankle/Foot Posture (L) Neutral,(R) Neutral Palpation Assessment Location piriformis Palpation Location right Palpation Findings Tenderness,Trigger Point gluteus medius Palpation Location right Palpation Findings Tenderness IT band Palpation Location right Palpation Findings Tenderness Palpation Details priximal tenderness PT-OP-K Range of Motion Start: 01/04/20 11:11 Freq: Status: Active Protocol: Document 01/04/20 11:12 SAK (Rec: 01/05/20 14:30 SAK [id number]) Lumbar Spine Range of Motion Lumbar Spine Active Flexion 40 Extension 20 Rotation Left 40 Rotation Right 40 Lateral Flexion Left 45 Lateral Flexion Right 45 ROM Limitations Soft Tissue Tightness Hip Goniometric Range of Motion Hip right Testing Position Supine Straight Leg Raise 60 Extension 15 Internal Rotation 15 External Rotation 55 left Testing Position Supine Straight Leg Raise 65 Extension 15 Internal Rotation 20 External Rotation 60 Hip ROM Limitations Hip ROM Limitations Soft Tissue Tightness,Pain PT-OP-L Special Tests Start: 01/04/20 11:11 Freq: Status: Active Protocol: Document 01/04/20 11:12 SAK (Rec: 01/05/20 14:30 SAK [id number]) Special Tests Hip Special Tests Straight Leg Raise Test Results negative for radicular symptoms, HS tightness only Scour Test Test Results negative for hip joint pathology PT-OP-M Strength Start: 01/04/20 11:11 Freq: Status: Active Protocol: Document 01/04/20 11:12 SAK (Rec: 01/05/20 14:30 SAK [id number]) Hip Strength Hip Manual Muscle Testing Right Flexion (L2) 4- Good- Extension (S1) 4- Good- Abduction 4- Good- External Rotation 4- Good- Internal Rotation 4- Good- Left Flexion (L2) 4 Good Extension (S1) 4 Good Abduction 4- Good- Internal Rotation 4 Good Knee Strength Knee Manual Muscle Testing halle Flexion (S2) 5 Normal Extension (L3) 5 Normal PT-OP-Q Treatments Start: 01/04/20 11:11 Freq: Status: Active Protocol: Document 02/08/20 12:57 [facility] (Rec: 02/08/20 13:01 [facility] [id number]) Therapeutic Exercises Supine Exercises core Supine Exercise Name core series 3 exercises (flex, diagonal, ext, flex Side bilateral Reps/Minutes 45 sec ea Sitting Exercises PF stretch Side left Reps/Minutes 1 min Standing Exercises HS stretch Standing Exercise Name bottoms up and around the world dynamic stretches Manual Therapy Treatment Joint Mobilizations sacrum Joint UPA R FM innominate Joint R Direction ER FM & caudal FM hip Direction ER FM Self-Care/Home Management Treatment Education Other Education edu for what to look for in shoes, edu to warm up prior to running PT-OP-R Modalities Start: 01/04/20 11:11 Freq: Status: Active Protocol: Document 02/08/20 12:57 [facility] (Rec: 02/08/20 13:01 [facility] [id number]) Ultrasound Therapy Treatment left MTP 3rd and 4th toes Treatment Duration (minutes) 8 Patient Position Prone Coupling Medium Ultrasound Gel Applicator Size (cm2) 2 Mode Setting Pulsed Duty Cycle 50% Intensity Setting (w/cm2) 1.0 Comments slight tingling sensation PT-OP-T Assessment and Plan Start: 01/04/20 11:11 Freq: Status: Active Protocol: Document 02/08/20 12:57 [facility] (Rec: 02/08/20 13:01 [facility] [id number]) Physical Therapy Assessment Goals Three Impairment weakness and decreased flexibility bilateral hips R>L Nursing Home Goal (LTG) Patient flexibility and strength to be WNL bilateral hips with patient independent in HEP LTG Duration 03/05/20 Two Impairment Lower extremity functinal scale 79% Nursing Home Goal (LTG) Improve LEFS score to at least 92% including ability to resume typical running schedule without an increase in pain LTG Duration 03/05/20 One Impairment pain 6/10 right SI, piriformis , lateral hip Nursing Home Goal (LTG) Decrease pain to no greater than 1-2/10 with all usual activities LTG Duration 03/05/20 Assessment Summary Assessment Pt's shoes have breakdown lat in mesh and encouraged to get new shoes along with edu on what to look for when looking for shoes. Discussed making sure to try them out in store with running, walking, step ups and squats/lunges to determine if they are comfortable. Pt had signficantly dec ER which imrpoved with manual treatment . He cont to feel like US helped foot. Physical Therapy Plan Frequency and Duration Frequency of Treatment 2x/Week Duration of Treatment 8 wks Plan of Care Start Date 01/04/20 Plan of Care End Date 03/05/20 Next Visit Focus/Plan Next Note Type Treatment Note Next Visit Plan Continue PT with ultrasound to left foot, continue progression of ther ex for right hip strength and flexibility.
--- NOTE | 2020-02-10 13:26 | PT.OTN ---
Current Diagnoses Pain in right hip (02/10/20) Stiffness of right hip, not elsewhere classified (02/10/20) Difficulty in walking, not elsewhere classified (02/10/20) Weakness (02/10/20) Physical Therapy Treatment Note PT-OP-A Visit Information Start: 01/04/20 11:11 Freq: Status: Active Protocol: Document 02/10/20 11:26 [facility] (Rec: 02/10/20 13:26 [facility] [id number]) Out-Patient Physical Therapy Visit Information Visit Information Visit Type Treatment Note Visit Start Time 11:19 Visit Stop Time 12:00 Total Visit Minutes 41 Visit Number 7 Number of SR. OPERATIONS MANAGER Visits 0 PT-OP-B Current Condition Start: 01/04/20 11:11 Freq: Status: Active Protocol: Document 01/04/20 11:12 [facility] (Rec: 01/04/20 12:23 [facility] [id number]) Current Condition History of Current Condition Onset Date 1 1/2 yrs Current Complaints right hip pain History of Current Condition immediate onset of pain while running around 1 1/2 yrs ago with no known cause, came and went, felt more with running more often past few months due to Covid19. Tends to swim more for exercise but due to pandemic has been running more . Around 26 of November had some sort of sciatica thing where I could hardly move. Hip pain is lateral some posterior. Has stopped running for about 1 month. Has been swimming [employer]. No numbness or tingling. Sits at desk for work. The pain gets worse with sitting at times. Plays upright base, tends to rest more on right LE. Wears shoe inserts halle, had recent toe fracture , occasional feeling of lateral toes left foot like it's dislocating. Hernia right side that needs to be repaired . Prior Treatments and Tests left toe fracture. Treatment Goals Patient/Caregiver Goals Minimize or eliminate pain Prior Functional Status Baseline Function- ADL's Independent Baseline Function- Mobility Independent Baseline Function- Gait independent no pain Baseline Function- Work/School no pain Baseline Function- Recreation/Hobbies swim, run, hike Current Functional Impairments (Reported) Functional Limitations- Work/School some increase pain with sitting at times; patient has 1 monitor forward, 1 to the left Functional Limitations- Recreation/ painful running Hobbies PT-OP-C Subjective Start: 01/04/20 11:11 Freq: Status: Active Protocol: Document 02/10/20 11:26 [facility] (Rec: 02/10/20 13:26 [facility] [id number]) OP-PT Subjective Patient Comments Patient Comments Pt reports doing a little better with stretches and core Patient Reported Progress Improving PT-OP-G Mobility & Gait Start: 01/04/20 11:11 Freq: Status: Active Protocol: Document 01/04/20 11:12 [facility] (Rec: 01/05/20 14:30 [facility] [id number]) OP Mobility Evaluation Functional Movements Squats Can get most of way into Corinne squat though with less mobility right vs left Running Assessment next session Other Functional Movements Instructed in need to examine his habits of positioning and movement PT-OP-J Posture/Palpation/Skin Start: 01/04/20 11:11 Freq: Status: Active Protocol: Document 01/04/20 11:12 [facility] (Rec: 01/05/20 14:30 [facility] [id number]) Posture Evaluation Position Standing Head/C-Spine Posture Forward Head T-Spine Posture Increased Kyphosis L-Spine Posture Flattened Scapula Posture (L) Protracted,(R) Protracted Arm Posture (L) Internally Rotated,(R) Internally Rotated Pelvis Posture Posterior Tilted,(R) ASIS Posterior Weight Distribution Weight Shifted Left Knee Posture (R) Genu Varus,(L) Genu Valgus Ankle/Foot Posture (L) Neutral,(R) Neutral Palpation Assessment Location piriformis Palpation Location right Palpation Findings Tenderness,Trigger Point gluteus medius Palpation Location right Palpation Findings Tenderness IT band Palpation Location right Palpation Findings Tenderness Palpation Details priximal tenderness PT-OP-K Range of Motion Start: 01/04/20 11:11 Freq: Status: Active Protocol: Document 01/04/20 11:12 [facility] (Rec: 01/05/20 14:30 [facility] [id number]) Lumbar Spine Range of Motion Lumbar Spine Active Flexion 40 Extension 20 Rotation Left 40 Rotation Right 40 Lateral Flexion Left 45 Lateral Flexion Right 45 ROM Limitations Soft Tissue Tightness Hip Goniometric Range of Motion Hip right Testing Position Supine Straight Leg Raise 60 Extension 15 Internal Rotation 15 External Rotation 55 left Testing Position Supine Straight Leg Raise 65 Extension 15 Internal Rotation 20 External Rotation 60 Hip ROM Limitations Hip ROM Limitations Soft Tissue Tightness,Pain PT-OP-L Special Tests Start: 01/04/20 11:11 Freq: Status: Active Protocol: Document 01/04/20 11:12 [facility] (Rec: 01/05/20 14:30 [facility] [id number]) Special Tests Hip Special Tests Straight Leg Raise Test Results negative for radicular symptoms, HS tightness only Scour Test Test Results negative for hip joint pathology PT-OP-M Strength Start: 01/04/20 11:11 Freq: Status: Active Protocol: Document 01/04/20 11:12 [facility] (Rec: 01/05/20 14:30 [facility] [id number]) Hip Strength Hip Manual Muscle Testing Right Flexion (L2) 4- Good- Extension (S1) 4- Good- Abduction 4- Good- External Rotation 4- Good- Internal Rotation 4- Good- Left Flexion (L2) 4 Good Extension (S1) 4 Good Abduction 4- Good- Internal Rotation 4 Good Knee Strength Knee Manual Muscle Testing halle Flexion (S2) 5 Normal Extension (L3) 5 Normal PT-OP-Q Treatments Start: 01/04/20 11:11 Freq: Status: Active Protocol: Document 02/10/20 11:26 [facility] (Rec: 02/10/20 13:26 [facility] [id number]) Therapeutic Exercises Supine Exercises core Supine Exercise Name core series 3 exercises (flex, diagonal, ext, flex Side bilateral Reps/Minutes 30 sec ea Manual Therapy Treatment Soft Tissue Mobilization glut med Body Location right sup border Mobilization Type Rolling,Strumming,Sustained Pressure Body Position Prone Comments w/hip ER/IR piriformis Body Location R Piriformis Mobilization Type Rolling,Strumming,Sustained Pressure Body Position Prone 1 Body Location lumbar R paraspinals & QL Mobilization Type Rolling,Strumming Intensity/Depth Moderate Body Position Prone Joint Mobilizations sacrum Joint UPA R FM innominate Joint R Direction IR FM hip Direction ER & IR hip on axis FM PT-OP-R Modalities Start: 01/04/20 11:11 Freq: Status: Active Protocol: Document 02/10/20 11:26 [facility] (Rec: 02/10/20 13:26 [facility] [id number]) Ultrasound Therapy Treatment left MTP 3rd and 4th toes Treatment Duration (minutes) 8 Patient Position Prone Coupling Medium Ultrasound Gel Applicator Size (cm2) 2 Mode Setting Pulsed Duty Cycle 50% Intensity Setting (w/cm2) 1.0 Comments slight tingling sensation PT-OP-T Assessment and Plan Start: 01/04/20 11:11 Freq: Status: Active Protocol: Document 02/10/20 11:26 [facility] (Rec: 02/10/20 13:26 [facility] [id number]) Physical Therapy Assessment Goals Three Impairment weakness and decreased flexibility bilateral hips R>L [facility] Goal (LTG) Patient flexibility and strength to be WNL bilateral hips with patient independent in HEP LTG Duration 03/05/20 Two Impairment Lower extremity functinal scale 79% Asbestos Abatement Worker Goal (LTG) Improve LEFS score to at least 92% including ability to resume typical running schedule without an increase in pain LTG Duration 03/05/20 One Impairment pain 6/10 right SI, piriformis , lateral hip Asbestos Abatement Worker Goal (LTG) Decrease pain to no greater than 1-2/10 with all usual activities LTG Duration 03/05/20 Assessment Summary Assessment Pt had improved hip IR and ER after manual treatment today. He was able to do core series with min cueing only. Physical Therapy Plan Frequency and Duration Frequency of Treatment 2x/Week Duration of Treatment 8 wks Plan of Care Start Date 01/04/20 Plan of Care End Date 03/05/20 Next Visit Focus/Plan Next Note Type Treatment Note Next Visit Plan Continue PT with ultrasound to left foot, continue progression of ther ex for right hip strength and flexibility.
--- NOTE | 2020-02-17 11:10 | PT.OPDS ---
Current Diagnoses Pain in right hip (02/10/20) Stiffness of right hip, not elsewhere classified (02/10/20) Difficulty in walking, not elsewhere classified (02/10/20) Weakness (02/10/20) Visit Care Team Role Provider Type MERARY Rice Attending Provider Advanced Disaster Director Primary Care Provider Referring Provider Specialty: Medical Address: [address] [place] [address], [facility] Email: [email or web address] Visit Number Visit Number 7 Discharge Summary PT-OP-B Current Condition Start: 01/04/20 11:11 Freq: Status: Active Protocol: Document 01/04/20 11:12 [facility] (Rec: 01/04/20 12:23 [facility] [id number]) Current Condition History of Current Condition Onset Date 1 1/2 yrs Current Complaints right hip pain History of Current Condition immediate onset of pain while running around 1 1/2 yrs ago with no known cause, came and went, felt more with running more often past few months due to Covid19. Tends to swim more for exercise but due to pandemic has been running more . Around 26 of November had some sort of sciatica thing where I could hardly move. Hip pain is lateral some posterior. Has stopped running for about 1 month. Has been swimming [employer]. No numbness or tingling. Sits at desk for work. The pain gets worse with sitting at times. Plays upright base, tends to rest more on right LE. Wears shoe inserts halle, had recent toe fracture , occasional feeling of lateral toes left foot like it's dislocating. Hernia right side that needs to be repaired . Prior Treatments and Tests left toe fracture. Treatment Goals Patient/Caregiver Goals Minimize or eliminate pain Prior Functional Status Baseline Function- ADL's Independent Baseline Function- Mobility Independent Baseline Function- Gait independent no pain Baseline Function- Work/School no pain Baseline Function- Recreation/Hobbies swim, run, hike Current Functional Impairments (Reported) Functional Limitations- Work/School some increase pain with sitting at times; patient has 1 monitor forward, 1 to the left Functional Limitations- Recreation/ painful running Hobbies PT-OP-C Subjective Start: 01/04/20 11:11 Freq: Status: Active Protocol: Document 02/10/20 11:26 [facility] (Rec: 02/10/20 13:26 [facility] [id number]) OP-PT Subjective Patient Comments Patient Comments Pt reports doing a little better with stretches and core Patient Reported Progress Improving PT-OP-G Mobility & Gait Start: 01/04/20 11:11 Freq: Status: Active Protocol: Document 01/04/20 11:12 [facility] (Rec: 01/05/20 14:30 [facility] [id number]) OP Mobility Evaluation Functional Movements Squats Can get most of way into Corinne squat though with less mobility right vs left Running Assessment next session Other Functional Movements Instructed in need to examine his habits of positioning and movement PT-OP-J Posture/Palpation/Skin Start: 01/04/20 11:11 Freq: Status: Active Protocol: Document 01/04/20 11:12 [facility] (Rec: 01/05/20 14:30 [facility] [id number]) Posture Evaluation Position Standing Head/C-Spine Posture Forward Head T-Spine Posture Increased Kyphosis L-Spine Posture Flattened Scapula Posture (L) Protracted,(R) Protracted Arm Posture (L) Internally Rotated,(R) Internally Rotated Pelvis Posture Posterior Tilted,(R) ASIS Posterior Weight Distribution Weight Shifted Left Knee Posture (R) Genu Varus,(L) Genu Valgus Ankle/Foot Posture (L) Neutral,(R) Neutral Palpation Assessment Location piriformis Palpation Location right Palpation Findings Tenderness,Trigger Point gluteus medius Palpation Location right Palpation Findings Tenderness IT band Palpation Location right Palpation Findings Tenderness Palpation Details priximal tenderness PT-OP-K Range of Motion Start: 01/04/20 11:11 Freq: Status: Active Protocol: Document 01/04/20 11:12 [facility] (Rec: 01/05/20 14:30 [facility] [id number]) Lumbar Spine Range of Motion Lumbar Spine Active Flexion 40 Extension 20 Rotation Left 40 Rotation Right 40 Lateral Flexion Left 45 Lateral Flexion Right 45 ROM Limitations Soft Tissue Tightness Hip Goniometric Range of Motion Hip right Testing Position Supine Straight Leg Raise 60 Extension 15 Internal Rotation 15 External Rotation 55 left Testing Position Supine Straight Leg Raise 65 Extension 15 Internal Rotation 20 External Rotation 60 Hip ROM Limitations Hip ROM Limitations Soft Tissue Tightness,Pain PT-OP-L Special Tests Start: 01/04/20 11:11 Freq: Status: Active Protocol: Document 01/04/20 11:12 [facility] (Rec: 01/05/20 14:30 [facility] [id number]) Special Tests Hip Special Tests Straight Leg Raise Test Results negative for radicular symptoms, HS tightness only Scour Test Test Results negative for hip joint pathology PT-OP-M Strength Start: 01/04/20 11:11 Freq: Status: Active Protocol: Document 01/04/20 11:12 [facility] (Rec: 01/05/20 14:30 [facility] [id number]) Hip Strength Hip Manual Muscle Testing Right Flexion (L2) 4- Good- Extension (S1) 4- Good- Abduction 4- Good- External Rotation 4- Good- Internal Rotation 4- Good- Left Flexion (L2) 4 Good Extension (S1) 4 Good Abduction 4- Good- Internal Rotation 4 Good Knee Strength Knee Manual Muscle Testing halle Flexion (S2) 5 Normal Extension (L3) 5 Normal PT-OP-T Assessment and Plan Start: 01/04/20 11:11 Freq: Status: Active Protocol: Document 02/17/20 11:09 [facility] (Rec: 02/17/20 11:10 [facility] [id number]) Physical Therapy Plan Discharge Physical Therapy Discharge Reasons Patient Request
== END 2020-02-25 10:11 ==
LOC: PHYS 11:15
PROVIDERS: PCP Registered Nurse; Referring Provider Registered Nurse; Visit Provider Registered Nurse
DX: M25.551 Pain in right hip (principal); R53.1 Weakness; R26.2 Difficulty in walking, not elsewhere classified; M25.651 Stiffness of right hip, not elsewhere classified
CPT/HCPCS: 97035; 97110; 97140; 97161; 97535

== ENCOUNTER → 2021-07-04 07:10 | Outpatient (CLI) | payer OTHER, SELFPAY ==
[2021-07-04 07:53] LABS: Add Manual Diff / Slide Review NO; Basophils Absolute Auto 100 /uL (0-100); Basophils Percent Auto 1.6 % (0-2); Eosinophils Absolute Auto 200 /uL (0-450); Eosinophils Percent Auto 4.3 % (2-4); Hematocrit 46.4 % (41-53); Hemoglobin 15.1 g/dL (13.5-17.5); Lymphocytes Absolute Auto 1400 /uL (1100-4500); Lymphocytes Percent Auto 32.6 % (25-40); Mean Corpuscular HGB Conc 32.5 % (30-36); Mean Corpuscular Hemoglobin 27.3 PG (26-34); Monocytes Absolute Auto 500 /uL (0-900); Monocytes Percent Auto 11.7 % (3-14); Neutrophils Absolute Auto 2100 /uL (1500-7000); Neutrophils Percent Auto 49.8 % (50-75); Platelet Count 166 X10^3/uL (150-400); Red Blood Cell Count 5.52 X10^6/uL (4.5-5.9); Red Cell Distribution Width 13.8 % (11.6-14.8); White Blood Cell Count 4.3 X10^3/uL (4.5-11.0)
[2021-07-04 08:06] LABS: Alanine Aminotransferase 30 IU/L (<50); Albumin 4.3 g/dL (3.5-5.0); Albumin Globulin Ratio 1.4 (1.0-2.8); Alkaline Phosphatase 72 U/L (38-126); Aspartate Aminotransferase 32 IU/L (17-59); BUN Creatinine Ratio 20.5 (6-22); Bilirubin Total 0.5 mg/dL (0.2-1.3); Blood Urea Nitrogen 16 mg/dL (9-20); Calcium 9.6 mg/dL (8.4-10.2); Carbon Dioxide 28 mmol/L (22-32); Chloride 105 mmol/L (98-107); Cholesterol 187 mg/dL (140-199); Estimated Glomerular Filt Rate > 60.0 mL/min (>60); Glucose 87 mg/dL (80-110); HDL Cholesterol 59 mg/dL (40-60); HEMOLYSIS < 15 (0-50); LDL Cholesterol Calculated 112 mg/dL (<100); Potassium 4.3 mmol/L (3.4-5.1); Sodium 139 mmol/L (137-145); Total Protein 7.3 g/dL (6.3-8.2); Triglycerides 80 mg/dL (35-150)
[2021-07-04 08:24] LABS: Vitamin D 25 Hydroxy (D3) 39.5 ng/mL (30.0-100.0)
[2021-07-04 08:35] LABS: Prostate Specific Antigen Scrn 1.17 ng/mL (0.1-4.0)
[2021-07-04 08:36] LABS: TSH w/ Reflex to FT4 2.76 uIU/mL (0.47-4.68)
== END ==
PROVIDERS: PCP Family Medicine; Referring Provider Family Medicine; Visit Provider Family Medicine
DX: Z00.00 Encounter for general adult medical examination without abnormal findings (principal); Z12.5 Encounter for screening for malignant neoplasm of prostate; Z13.21 Encounter for screening for nutritional disorder; Z13.220 Encounter for screening for lipoid disorders
CPT/HCPCS: 36415; 80053; 80061; 82306; 84443; 85025; G0103

== ENCOUNTER 2021-12-24 08:50 | Inpatient (IN) | payer OTHER, SELFPAY ==
[2021-12-24] VITALS (23 sets, daily range): BP systolic 103–132; BP diastolic 61–77; PULSE 54–74; RESP 2–31; TEMP 36.4–36.8; O2SAT 95–100; BMI 22.5
--- NOTE | 2021-12-24 09:03 | PC.NURSE ---
Bruising noted to right back mid thoracic region.
--- NOTE | 2021-12-24 09:09 | DI.RAD.S_ITS ---
PROCEDURE: XR RIBS RT MIN 3V W CXR 1V INDICATIONS: fall friday r/o rib fracture TECHNIQUE: 3 views of the right ribs were acquired, along with a single view chest. COMPARISON: None. FINDINGS: Surgical changes and devices: None. Bones and chest wall: Displaced fractures involving right posterior lateral 8th and 9th ribs are seen . No suspicious bony lesions. Overlying soft tissues appear unremarkable. Lungs and pleura: There is a small right apically pneumothorax measures 1.9 cm in craniocaudal dimension. No left-sided pneumothorax. No significant pleural effusion. Subtle opacities in right lower lung field is seen likely represent right basilar contusion and atelectasis. Mediastinum: Mediastinal contours appear normal. Heart size is normal. IMPRESSION: Displaced fractures involving right posterior lateral 8th and 9th ribs with right basilar contusion/atelectasis. Right apically pneumothorax as above. Findings were reported to Dr. Delatorre in the ER at 9:55 a.m. PST on 12/24/2021. Dictated by: Tao Lanier M.D. on 12/24/2021 at 8:42 Approved by: Tao Lanier M.D. on 12/24/2021 at 9:01
--- NOTE | 2021-12-24 09:42 | ED_ITS ---
HPI - Back Pain/Injury General Chief Complaint: Back Pain/Injury Stated Complaint: fell maybe broke ribs sent by [facility] Time Seen by Provider: 12/24/21 09:04 Source: patient History of Present Illness HPI Narrative: Patient is a 61-year-old male with out pertinent past medical history presenting 2 days after a fall. He was on low walking down some stairs when he slipped fell landed on his right side and his back he hit the corner something on the weight down. He felt like he got the wind knocked out of him. He has been unable to sleep due to pain he is having to sleep in a recliner. Her every time he moves or breathes. He has been taking Aleve and ibuprofen around the clock. Went to the walk-in clinic he noticed he had some bilirubin in his urine and sent here for further workup. He is not on any anti platelet medications or anticoagulation. He denies any head injury loss of consciousness no nausea or vomiting. He had has no neck pain. Related Data Previous Rx's Medication Instructions Recorded cephalexin 500 mg capsule 500 mg PO QID 5 days #20 caps 12/24/21 Allergies Allergy/AdvReac Type Severity Reaction Status Date / Time grass pollen Allergy Mild Verified 12/24/21 09:00 Review of Systems Review of Systems Narrative: GENERAL: Denies chills, fatigue, malaise, fever, sweats, travel HEENT: Denies sinus pain, ear pain, sore throat, difficulty swallowing, neck pain RESPIRATORY: See HPI CARDIOVASCULAR: Denies chest pain, palpitations, orthopnea, edema GASTROINTESTINAL: Denies nausea, vomiting, abdominal pain, diarrhea, constipation, melena. : Denies dysuria, frequency, incontinence, hematuria, urinary retention, flank pain. MUSCULOSKELETAL: See HPI SKIN: No rash, no erythema, no pruritus NEUROLOGIC: Denies weakness, dizziness, headache, numbness, change in speech, confusion PSYCHIATRIC: No concerning psychosocial issues. 12 point review of systems is negative except for those stated above and HPI Patient History Medical History Bilateral shoulder pain Body posture problem Encounter for vitamin deficiency screening History of kidney stones Normal physical exam, routine Screening for hyperlipidemia Screening for prostate cancer Somatic dysfunction of lower extremity Toe pain, left Surgical History History of inguinal hernia repair Family History Father No problems noted. Mother No problems noted. Social History Smoking Status: Never smoker alcohol intake: current substance use type: marijuana (rarely) Smoking Status: Never smoker alcohol intake frequency: 0-2 drinks per day Substance Use Type: does not use Exam Initial Vital Signs Initial Vital Signs: Vital Signs Pulse Rate 74 12/24/21 08:56 Blood Pressure 107/61 12/24/21 08:56 Pulse Oximetry 98 12/24/21 08:56 GENERAL: Alert pleasant 61-year-old male appears uncomfortable HEENT: Head atraumatic,EOMI, pupils reactive, face symmetric, moist mucous membranes NECK: Tenderness no step-off CARDIOVASCULAR: Regular rate and rhythm without murmurs, rubs or gallops. Right-sided no paradoxical movement no contusion slightly tachypneic tender to touch RESPIRATORY: Breath sounds equal bilaterally, no wheezes rales or rhonchi. ABDOMEN: Soft, nontender. Normoactive bowel sounds all 4 quadrants. No guarding or rebound. EXTREMITIES: Normal range of motion, no clubbing or edema. Neurovascularly intact NEUROLOGICAL: Alert and oriented x4.Normal gait and speech. SKIN: Warm, dry, no laceration, no petechiae, no rashes or lesions. Procedures Chest Tube Chest Tube 1: Chest Tube Location: right and mid axillary line Size of Tube (cm): 28 Chest Tube Prep: Yes sterile drapes applied and other Local Anesthetic: lidocaine 2% Amount of anesthesia used (mL): 8 Incision Made With: #10 blade Tube Drainage: blood Amount of initial drainage (mL): 5 Post Procedure CXR?: Yes Patient Tolerated Procedure: Yes Procedural Sedation Time out performed: Yes Indication: other (Chest tube) Mallampati Airway Classification: Class I IV Propofol dose (mg): 100 Intraservice time/total sedation time (min): 19 ED Sedation Level: Moderate (Concious) Patient Tolerated Procedure: Well and No complications Course Orders Ordered: ED Orders 12/24/21 09:09 XR ribs RT min 3V w CXR1V Stat 12/24/21 09:53 CBC Auto Diff [Complete Blood Count AUTO DIFF] Stat CMP [Comprehensive Metabolic Panel] Stat Lipase Stat PT [Prothrombin Time INR] Stat PTT [Partial Thromboplastin Time] Stat 12/24/21 09:56 CT chest abd pel w con Stat 12/24/21 12:15 XR chest 1V Stat Discontinued Medications Hydromorphone HCl (Hydromorphone 0.5 Mg Inj) 0.5 mg IV NOW ONE Stop: 12/24/21 12:16 Last Admin: 12/24/21 12:19 Dose: 0.5 mg Documented By: LION Sodium Chloride (Normal Saline 0.9%) 1,000 mls @ 1,000 mls/hr IV BOLUS ONE Stop: 12/24/21 12:26 Last Admin: 12/24/21 11:59 Dose: 1,000 mls/hr Documented By: LION Lidocaine HCl (Lidocaine 2% Inj Mdv 10ml) 1 mg SUBCUT NOW ONE Stop: 12/24/21 11:38 Last Admin: 12/24/21 12:00 Dose: Not Given Documented By: LION Lidocaine HCl (Lidocaine 2% Inj Mdv 20ml) 1 ml INJ NOW ONE Stop: 12/24/21 12:01 Last Admin: 12/24/21 11:59 Dose: 1 ml Documented By: LION Morphine Sulfate (Morphine 2 Mg/Ml Inj) 2 mg IV NOW ONE Stop: 12/24/21 10:04 Last Admin: 12/24/21 10:12 Dose: 2 mg Documented By: JENNIFER Propofol (Propofol 200 Mg/20 Ml Vial) 80 mg 1 mg/kg (80 mg) IV NOW ONE Stop: 12/24/21 11:28 Last Admin: 12/24/21 11:58 Dose: 80 mg Documented By: LION Propofol (Propofol 200 Mg/20 Ml Vial) 20 mg IV NOW ONE Stop: 12/24/21 12:03 Last Admin: 12/24/21 12:02 Dose: 20 mg Documented By: LION Vital Signs Vital signs: Vital Signs - 8 hr 12/24/21 08:58 12/24/21 11:55 12/24/21 11:58 Temperature 97.6 F 98.2 F Pulse Rate 70 69 69 Respiratory Rate 16 22 17 Blood Pressure 107/61 120/72 103/63 Pulse Oximetry 99 100 100 Oxygen Delivery Method Room Air Oxygen Flow Rate 4 4 12/24/21 12:05 12/24/21 12:00 12/24/21 12:10 Temperature Pulse Rate 66 62 62 Respiratory Rate 16 18 22 Blood Pressure 116/66 118/76 116/65 Pulse Oximetry 100 100 100 Oxygen Delivery Method Oxygen Flow Rate 4 4 4 12/24/21 12:15 12/24/21 12:20 12/24/21 08:56 Temperature Pulse Rate 61 63 Respiratory Rate 18 22 Blood Pressure 120/69 132/73 107/61 Pulse Oximetry 100 100 Oxygen Delivery Method Oxygen Flow Rate 4 4 12/24/21 08:56 12/24/21 09:00 12/24/21 09:00 Temperature Pulse Rate 74 72 Respiratory Rate Blood Pressure 104/61 Pulse Oximetry 98 98 Oxygen Delivery Method Oxygen Flow Rate 12/24/21 09:33 12/24/21 10:00 12/24/21 11:12 Temperature Pulse Rate 61 59 L 61 Respiratory Rate Blood Pressure Pulse Oximetry 95 99 97 Oxygen Delivery Method Oxygen Flow Rate 12/24/21 11:21 12/24/21 11:21 12/24/21 11:26 Temperature Pulse Rate 63 60 Respiratory Rate 23 Blood Pressure 109/70 Pulse Oximetry 98 100 Oxygen Delivery Method Oxygen Flow Rate 12/24/21 11:26 12/24/21 11:30 12/24/21 11:30 Temperature Pulse Rate 59 L Respiratory Rate 23 Blood Pressure 110/69 117/71 Pulse Oximetry 100 Oxygen Delivery Method Oxygen Flow Rate 12/24/21 11:45 12/24/21 11:45 12/24/21 11:55 Temperature Pulse Rate 63 69 Respiratory Rate 26 H 26 H Blood Pressure 124/69 Pulse Oximetry 100 100 Oxygen Delivery Method Oxygen Flow Rate 12/24/21 11:55 12/24/21 11:58 12/24/21 11:58 Temperature Pulse Rate 61 Respiratory Rate 17 Blood Pressure 120/72 103/63 Pulse Oximetry 99 Oxygen Delivery Method Oxygen Flow Rate 12/24/21 12:00 12/24/21 12:01 12/24/21 12:01 Temperature Pulse Rate 58 L 62 Respiratory Rate 21 29 H Blood Pressure 118/76 Pulse Oximetry 98 97 Oxygen Delivery Method Oxygen Flow Rate 12/24/21 12:05 12/24/21 12:05 12/24/21 12:10 Temperature Pulse Rate 58 L 61 Respiratory Rate 15 2 L Blood Pressure 116/66 Pulse Oximetry 99 99 Oxygen Delivery Method Oxygen Flow Rate 12/24/21 12:10 12/24/21 12:15 12/24/21 12:15 Temperature Pulse Rate 63 Respiratory Rate 31 H Blood Pressure 116/65 120/69 Pulse Oximetry 100 Oxygen Delivery Method Oxygen Flow Rate 12/24/21 12:20 12/24/21 12:20 Temperature Pulse Rate 62 Respiratory Rate 30 H Blood Pressure 132/73 Pulse Oximetry 100 Oxygen Delivery Method Oxygen Flow Rate MDM - Back Pain/Injury Lab Data Result diagrams: 12/24/21 09:53 12/24/21 09:53 Labs: Lab Results 12/24/21 12/24/21 12/24/21 Range/Units 09:53 09:53 09:53 WBC 7.3 (4.5-11.0) X10^3/uL RBC 4.98 (4.5-5.9) X10^6/uL Hgb 14.0 (13.5-17.5) g/dL Hct 41.6 (41-53) % MCV 83.6 (80-100) fL MCH 28.2 (26-34) PG MCHC 33.7 (30-36) % RDW 13.5 (11.6-14.8) % Plt Count 147 L (150-400) X10^3/uL Neut % (Auto) 71.2 (50-75) % Lymph % (Auto) 12.8 L (25-40) % Weston % (Auto) 13.4 (3-14) % Eos % (Auto) 1.9 L (2-4) % Baso % (Auto) 0.7 (0-2) % Neut # (Auto) 5200 (7796-8431) /uL Lymph # (Auto) 900 L (4761-5877) /uL Weston # (Auto) 1000 H (0-900) /uL Eos # (Auto) 100 (0-450) /uL Baso # (Auto) 0 (0-100) /uL PT 12.6 (10.1-12.7) SECONDS INR 1.1 (0.9-1.3) APTT 26 L (26.4-36.2) SECONDS Sodium 137 (137-145) mmol/L Potassium 4.2 (3.4-5.1) mmol/L Chloride 104 (98-107) mmol/L Carbon Dioxide 29 (22-32) mmol/L BUN 19 (9-20) mg/dL Creatinine 0.68 (0.66-1.25) mg/dL Estimated GFR > 60 (>60) mL/min BUN/Creatinine Ratio 27.9 H (6-22) Glucose 76 L (80-110) mg/dL Calcium 8.8 (8.4-10.2) mg/dL Total Bilirubin 1.2 (0.2-1.3) mg/dL AST 29 (17-59) IU/L ALT 22 (<50) IU/L Alkaline Phosphatase 70 (38-126) U/L Total Protein 7.0 (6.3-8.2) g/dL Albumin 4.1 (3.5-5.0) g/dL Globulin 2.9 (1.7-4.1) g/dL Albumin/Globulin Ratio 1.4 (1.0-2.8) Lipase 61 (23-300) U/L Imaging Data Chest x-ray: Radiologist's Impression: XRay Report Signed Patient: Viktor Caceres MR#: [id number] : 1960 Acct:[id number] Age/Sex: 61 / M Date of Service: 12/24/21 Loc: ED Accession Number: [id number] ?? Procedure: XR ribs RT min 3V w CXR1V Ordering Provider: Sanjuana Delatorre D.O. PROCEDURE:? XR RIBS RT MIN 3V W CXR 1V ? INDICATIONS:? fall friday r/o rib fracture ? TECHNIQUE:? 3 views of the right ribs were acquired, along with a single view chest.? ? COMPARISON:? None. ? FINDINGS:? ? Surgical changes and devices:? None.? ? Bones and chest wall:? Displaced fractures involving right posterior lateral 8th and 9th ribs are seen .? No suspicious bony lesions.? Overlying soft tissues appear unremarkable. ? ? Lungs and pleura:? There is a small right apically pneumothorax measures 1.9 cm in craniocaudal dimension.? No left-sided pneumothorax.? No significant pleural ef fusion.? Subtle opacities in right lower lung field is seen likely represent right basilar contusion and atelectasis. ? Mediastinum:? Mediastinal contours appear normal.? Heart size is normal.? ? IMPRESSION:? Displaced fractures involving right posterior lateral 8th and 9th ribs with right basilar contusion/atelectasis.? Right apically pneumothorax as above. ? ? Findings were reported to Dr. Delatorre in the ER at 9:55 a.m. PST on 12/24/2021. ? Dictated by: Tao Lanier M.D. on 12/24/2021 at 8:42 ? ? CT scan - abdomen/pelvis: Radiologist's Impression: [address] [address] [address] Scan Report Signed Patient: Viktor Caceres MR#: [id number] : 1960 Acct:[id number] Age/Sex: 61 / M Date of Service: 12/24/21 Loc: ED Accession Number: [id number] ?? Procedure: CT chest abd pel w con Ordering Provider: Sanjuana Delatorre D.O. PROCEDURE:? CT CHEST ABD PEL W CON ? INDICATIONS:? trauma right rib fx and pneumo ? TECHNIQUE:? After the administration of intravenous contrast, 5 mm thick sections acquired from the lung apices to the symphysis.? 2.5 mm thick coronal and sagittal reformats were acquired. ?Additional 7 mm thick coronal maximum intensity projection (MIP) reformats acquired through the lungs.? Optional 10-minute delayed imaging may be performed from the kidneys to the bladder.? For radiation dose reduction, the following was used:? automated exposure control, adjustment of mA and/or kV according to patient size.? ? COMPARISON:? [facility], CR, XR RIBS RT MIN 3V W CXR 1V, 12/24/2021, 9:21. ? FINDINGS:? Image quality:? Excellent.? ? CHEST:? Lungs:? There is a small right-sided pneumothorax seen.? There is a small right- sided pleural effusion. ? Mild dependent atelectasis can be seen on both sides.? The left lung is otherwise clear.? The central airways are patent. ? Mediastinum:? No mediastinal hematomas.? Heart size is normal.? No pericardial effusion.? Thoracic aorta and pulmonary arteries demonstrate normal size and enhancement.? No mediastinal or hilar adenopathy.? Esophagus is normal in caliber.? There is a small hiatal hernia.? ? Chest wall:? Mildly displaced rib fractures can be seen involving the right posterior 8th, 9th, and 10th ribs.? There is pectus excavatum deformity.? No subcutaneous emphysema.? No axillary or supraclavicular adenopathy.? Thyroid gland d emonstrates no significant abnormality.? ? ? ABDOMEN:? Solid organs:? Liver is normal in size and enhancement, without lacerations.? Gallbladder wall is not thickened.? Biliary system is non-dilated.? Pancreas enhances normally, without transection.? Spleen is normal in size and enhancement, without lacerations.? No adrenal hematomas.? Both kidneys enhance normally, without hydronephrosis or lacerations. ?A nonenhancing water density cyst can be seen along the medial left kidney measuring 3 cm.? A nonobstructing 7 mm left kidney stone can be seen. ? Peritoneum and bowel:? No free fluid or air.? Unenhanced bowel loops demonstrate normal wall thickness and caliber.? A moderate amount of stool can be seen within the colon. ? Nodes and vessels:? No retroperitoneal or mesenteric adenopathy.? Aorta and inferior vena cava are normal in size and enhancement.? ? Miscellaneous:? No ventral hernias.? ? ? PELVIS:? Genitourinary:? Bladder wall thickness is normal.? ? Miscellaneous:? No inguinal hernias or adenopathy.? ? Bones:? Pelvic ring and hip joints appear intact.? No vertebral compression f ractures.? Likely bone islands can be seen involving the bones of the pelvis.? Mild levoconvex scoliotic curvature is noted.? Focal L5-S1 degenerative change is seen.? Milder degenerative changes are seen elsewhere.? IMPRESSION:? There is a small right-sided pneumothorax. ? There is a small right-sided pleural effusion. ? Mildly displaced fractures can be seen involving the right posterior 8th, 9th, and 10th ribs. ? ? ? Incidental note is made of: Pectus excavatum deformity Simple appearing right renal cyst Nonobstructing 7 mm left kidney stone Likely constipation Mild levoconvex scoliotic curvature Focal L5-S1 degenerative change Likely bone islands within the bones of the pelvis ? ? Note:? Critical finding of pneumothorax discussed by telephone with Dr. Delatorre at 10:52 a.m.? on December 24, 2021. ? Dictated by: Esau Palacios M.D. on 12/24/2021 at 10:43 ? ? Approved by: Esau Palacios M.D. on 12/24/2021 at 10:53 ? CXR: Radiologist's Impression: [facility] [id number] XRay Report Signed Patient: Viktor Caceres MR#: [id number] : 1960 Acct:[id number] Age/Sex: 61 / M Date of Service: 12/24/21 Loc: [place] [address] Accession Number: [id number] ?? Procedure: XR chest 1V Ordering Provider: Sanjuana Delatorre D.O. PROCEDURE:? XR CHEST 1V ? INDICATIONS:? chest tube confirm placement ? TECHNIQUE:? One view of the chest was acquired.? ? COMPARISON:? [facility], CT, CT CHEST ABD PEL W CON, 12/24/2021, 10:21. ? FINDINGS:? ? Surgical changes and devices:? Right chest tube with tip overlying the middle lobe.? ? Lungs and pleura:? Bibasilar opacities with trace effusions.? Mild right pneumothorax. ? Mediastinum:? Mediastinal contours appear normal.? Heart size is enlarged.? ? Bones and chest wall:? No suspicious bony lesions.? Overlying soft tissues appear unremarkable.? Right rib fractures are noted. ? IMPRESSION:? Right chest tube with mild pneumothorax. ? ? Dictated by: Khloe Manuel M.D. on 12/24/2021 at 12:37 ? [facility] Narrative Medical decision making narrative: Patient had a traumatic fall 2 days ago. Found to have multiple fractured ribs and small pneumothorax on x-ray. Confirmed by CT. After discussing case with Dr. Patterson on-call surgery recommended chest tube placement for hemo pneumot horax. Chest tube was easily placed he had a small amount of blood return. The tolerated procedure well. Discharge Plan Departure Patient Disposition: Admitted As Inpatient Clinical Impression: Multiple rib fractures, Hemopneumothorax on right Admit Date/Time: 12/24/21 12:21 Admit Provider: Garth Patterson
--- NOTE | 2021-12-24 09:56 | DI.CT.S_ITS ---
PROCEDURE: CT CHEST ABD PEL W CON INDICATIONS: trauma right rib fx and pneumo TECHNIQUE: After the administration of intravenous contrast, 5 mm thick sections acquired from the lung apices to the symphysis. 2.5 mm thick coronal and sagittal reformats were acquired. Additional 7 mm thick coronal maximum intensity projection (MIP) reformats acquired through the lungs. Optional 10-minute delayed imaging may be performed from the kidneys to the bladder. For radiation dose reduction, the following was used: automated exposure control, adjustment of mA and/or kV according to patient size. COMPARISON: [facility], CR, XR RIBS RT MIN 3V W CXR 1V, 12/24/2021, 9:21. FINDINGS: Image quality: Excellent. CHEST: Lungs: There is a small right-sided pneumothorax seen. There is a small right-sided pleural effusion. Mild dependent atelectasis can be seen on both sides. The left lung is otherwise clear. The central airways are patent. Mediastinum: No mediastinal hematomas. Heart size is normal. No pericardial effusion. Thoracic aorta and pulmonary arteries demonstrate normal size and enhancement. No mediastinal or hilar adenopathy. Esophagus is normal in caliber. There is a small hiatal hernia. Chest wall: Mildly displaced rib fractures can be seen involving the right posterior 8th, 9th, and 10th ribs. There is pectus excavatum deformity. No subcutaneous emphysema. No axillary or supraclavicular adenopathy. Thyroid gland demonstrates no significant abnormality. ABDOMEN: Solid organs: Liver is normal in size and enhancement, without lacerations. Gallbladder wall is not thickened. Biliary system is non-dilated. Pancreas enhances normally, without transection. Spleen is normal in size and enhancement, without lacerations. No adrenal hematomas. Both kidneys enhance normally, without hydronephrosis or lacerations. A nonenhancing water density cyst can be seen along the medial left kidney measuring 3 cm. A nonobstructing 7 mm left kidney stone can be seen. Peritoneum and bowel: No free fluid or air. Unenhanced bowel loops demonstrate normal wall thickness and caliber. A moderate amount of stool can be seen within the colon. Nodes and vessels: No retroperitoneal or mesenteric adenopathy. Aorta and inferior vena cava are normal in size and enhancement. Miscellaneous: No ventral hernias. PELVIS: Genitourinary: Bladder wall thickness is normal. Miscellaneous: No inguinal hernias or adenopathy. Bones: Pelvic ring and hip joints appear intact. No vertebral compression fractures. Likely bone islands can be seen involving the bones of the pelvis. Mild levoconvex scoliotic curvature is noted. Focal L5-S1 degenerative change is seen. Milder degenerative changes are seen elsewhere. IMPRESSION: There is a small right-sided pneumothorax. There is a small right-sided pleural effusion. Mildly displaced fractures can be seen involving the right posterior 8th, 9th, and 10th ribs. Incidental note is made of: Pectus excavatum deformity Simple appearing right renal cyst Nonobstructing 7 mm left kidney stone Likely constipation Mild levoconvex scoliotic curvature Focal L5-S1 degenerative change Likely bone islands within the bones of the pelvis Note: Critical finding of pneumothorax discussed by telephone with Dr. Delatorre at 10:52 a.m. on December 24, 2021. Dictated by: Esau Palacios M.D. on 12/24/2021 at 10:43 Approved by: Esau Palacios M.D. on 12/24/2021 at 10:53
[2021-12-24 10:05] LABS: Add Manual Diff / Slide Review NO; Basophils Absolute Auto 0 /uL (0-100); Basophils Percent Auto 0.7 % (0-2); Eosinophils Absolute Auto 100 /uL (0-450); Eosinophils Percent Auto 1.9 % (2-4); Hematocrit 41.6 % (41-53); Lymphocytes Absolute Auto 900 /uL (1100-4500); Lymphocytes Percent Auto 12.8 % (25-40); Mean Corpuscular HGB Conc 33.7 % (30-36); Mean Corpuscular Hemoglobin 28.2 PG (26-34); Mean Corpuscular Volume 83.6 fL (80-100); Monocytes Absolute Auto 1000 /uL (0-900); Monocytes Percent Auto 13.4 % (3-14); Neutrophils Absolute Auto 5200 /uL (1500-7000); Neutrophils Percent Auto 71.2 % (50-75); Platelet Count 147 X10^3/uL (150-400); Red Blood Cell Count 4.98 X10^6/uL (4.5-5.9); Red Cell Distribution Width 13.5 % (11.6-14.8); White Blood Cell Count 7.3 X10^3/uL (4.5-11.0)
[2021-12-24] MEDS: MORPHINE 2 MG/ML INJ IV (10:12)
[2021-12-24 10:14] LABS: INR 1.1 (0.9-1.3); Prothrombin Time 12.6 SECONDS (10.1-12.7)
[2021-12-24 10:17] LABS: PTT Partial Thromboplastin Tim 26 SECONDS (26.4-36.2)
[2021-12-24 10:32] LABS: Alanine Aminotransferase 22 IU/L (<50); Albumin 4.1 g/dL (3.5-5.0); Albumin Globulin Ratio 1.4 (1.0-2.8); Alkaline Phosphatase 70 U/L (38-126); Aspartate Aminotransferase 29 IU/L (17-59); BUN Creatinine Ratio 27.9 (6-22); Bilirubin Total 1.2 mg/dL (0.2-1.3); Blood Urea Nitrogen 19 mg/dL (9-20); Calcium 8.8 mg/dL (8.4-10.2); Carbon Dioxide 29 mmol/L (22-32); Chloride 104 mmol/L (98-107); Estimated Glomerular Filt Rate > 60 mL/min (>60); Globulin 2.9 g/dL (1.7-4.1); Glucose 76 mg/dL (80-110); HEMOLYSIS < 15 (0-50); Lipase 61 U/L (23-300); Potassium 4.2 mmol/L (3.4-5.1); Sodium 137 mmol/L (137-145)
[2021-12-24] MEDS: propofoL 200 MG/20 ML VIAL 80 MG IV (11:58)
[2021-12-24] MEDS: LIDOCAINE 2% INJ MDV 20ML INJ (11:59)
[2021-12-24] MEDS: SODIUM CHLORIDE 0.9% 1,000 ML 1000 ML IV (11:59)
[2021-12-24] MEDS: propofoL 200 MG/20 ML VIAL 20 MG IV (12:02)
--- NOTE | 2021-12-24 12:15 | DI.RAD.S_ITS ---
PROCEDURE: XR CHEST 1V INDICATIONS: chest tube confirm placement TECHNIQUE: One view of the chest was acquired. COMPARISON: [facility], CT, CT CHEST ABD PEL W CON, 12/24/2021, 10:21. FINDINGS: Surgical changes and devices: Right chest tube with tip overlying the middle lobe. Lungs and pleura: Bibasilar opacities with trace effusions. Mild right pneumothorax. Mediastinum: Mediastinal contours appear normal. Heart size is enlarged. Bones and chest wall: No suspicious bony lesions. Overlying soft tissues appear unremarkable. Right rib fractures are noted. IMPRESSION: Right chest tube with mild pneumothorax. Dictated by: Khloe Manuel M.D. on 12/24/2021 at 12:37 Approved by: Khloe Manuel M.D. on 12/24/2021 at 12:42
[2021-12-24] MEDS: HYDROMORPHONE 0.5 MG INJ IV (12:19)
[2021-12-24 15:15] LABS: COVID19 -Nasal RAPID Negative (Negative)
--- NOTE | 2021-12-24 19:38 | P.HP_ITS ---
History of Present Illness History of Present Illness Date Patient Seen: 12/24/21 Time Patient Seen: 19:38 Chief complaint: fell maybe broke ribs sent by [facility] Narrative: Cleve is a 61-year-old man who fell about 2 days ago onto the edge of a chair. His right back has been hurting since then and he presented to the emergency department today. A chest CT showed right-sided rib fractures, a small right pneumothorax with a small pleural effusion. A chest tube was placed by Dr. Carline espinosa with drainage of about 100 mL of blood. Patient History Medical History Bilateral shoulder pain Body posture problem Encounter for vitamin deficiency screening History of kidney stones Normal physical exam, routine Screening for hyperlipidemia Screening for prostate cancer Somatic dysfunction of lower extremity Toe pain, left Surgical History History of inguinal hernia repair Family & Social History Family History Father No problems noted. Mother No problems noted. Social History: household members spouse Prior Living Arrangements House Safety & Behavioral: Feels Safe in Current Yes Environment Been Physically Hurt or No Threatened By a Person Tobacco & Substance use: Smoking Status Never smoker alcohol intake current alcohol intake frequency 0-2 drinks per day Substance Use Type does not use Meds Home Medications and Allergies Home Medications Medication Instructions Recorded Confirmed Type cephalexin 500 mg capsule 500 mg PO QID 5 days #20 caps 12/24/21 12/24/21 Rx Allergies Allergy/AdvReac Type Severity Reaction Status Date / Time grass pollen Allergy Mild Verified 12/24/21 09:00 Exam Vital Signs (past 8 hours): - 12/24/21 11:55 12/24/21 11:58 12/24/21 12:05 Temperature 98.2 F Pulse Rate 69 69 66 Respiratory Rate 22 17 16 Blood Pressure 120/72 103/63 116/66 Pulse Oximetry 100 100 100 Oxygen Delivery Method Oxygen Flow Rate 4 4 4 12/24/21 12:00 12/24/21 12:10 12/24/21 12:15 Temperature Pulse Rate 62 62 61 Respiratory Rate 18 22 18 Blood Pressure 118/76 116/65 120/69 Pulse Oximetry 100 100 100 Oxygen Delivery Method Oxygen Flow Rate 4 4 4 12/24/21 12:20 12/24/21 12:25 12/24/21 12:30 Temperature Pulse Rate 63 62 55 L Respiratory Rate 22 16 18 Blood Pressure 132/73 131/77 126/77 Pulse Oximetry 100 100 100 Oxygen Delivery Method Oxygen Flow Rate 4 4 4 12/24/21 11:45 12/24/21 11:45 12/24/21 11:55 Temperature Pulse Rate 63 69 Respiratory Rate 26 H 26 H Blood Pressure 124/69 Pulse Oximetry 100 100 Oxygen Delivery Method Oxygen Flow Rate 12/24/21 11:55 12/24/21 11:58 12/24/21 11:58 Temperature Pulse Rate 61 Respiratory Rate 17 Blood Pressure 120/72 103/63 Pulse Oximetry 99 Oxygen Delivery Method Oxygen Flow Rate 12/24/21 12:00 12/24/21 12:01 12/24/21 12:01 Temperature Pulse Rate 58 L 62 Respiratory Rate 21 29 H Blood Pressure 118/76 Pulse Oximetry 98 97 Oxygen Delivery Method Oxygen Flow Rate 12/24/21 12:05 12/24/21 12:05 12/24/21 12:10 Temperature Pulse Rate 58 L 61 Respiratory Rate 15 2 L Blood Pressure 116/66 Pulse Oximetry 99 99 Oxygen Delivery Method Oxygen Flow Rate 12/24/21 12:10 12/24/21 12:15 12/24/21 12:15 Temperature Pulse Rate 63 Respiratory Rate 31 H Blood Pressure 116/65 120/69 Pulse Oximetry 100 Oxygen Delivery Method Oxygen Flow Rate 12/24/21 12:20 12/24/21 12:20 12/24/21 12:25 Temperature Pulse Rate 62 Respiratory Rate 30 H Blood Pressure 132/73 131/77 Pulse Oximetry 100 Oxygen Delivery Method Oxygen Flow Rate 12/24/21 12:25 12/24/21 12:30 12/24/21 12:30 Temperature Pulse Rate 57 L 55 L Respiratory Rate 28 H 24 Blood Pressure 126/77 Pulse Oximetry 100 100 Oxygen Delivery Method Oxygen Flow Rate 12/24/21 12:50 12/24/21 14:21 12/24/21 16:00 Temperature 97.8 F 98.0 F Pulse Rate 54 L 64 Respiratory Rate 24 18 Blood Pressure 112/74 115/61 Pulse Oximetry 99 98 Oxygen Delivery Method Room Air Oxygen Flow Rate 0 Oxygen Delivery Method Room Air Oxygen Flow Rate 0 Const General: healthy appearing Chest Other: There is a right-sided chest tube with no air leak Resp Effort & Inspection: normal respiratory effort GI Palpation: soft Objective Labs Result Diagrams: 12/24/21 09:53 12/24/21 09:53 Labs: Laboratory Results - last 24 hr 12/24/21 12/24/21 12/24/21 09:53 09:53 09:53 WBC 7.3 RBC 4.98 Hgb 14.0 Hct 41.6 MCV 83.6 MCH 28.2 MCHC 33.7 RDW 13.5 Plt Count 147 L Neut % (Auto) 71.2 Lymph % (Auto) 12.8 L [place] % (Auto) 13.4 Eos % (Auto) 1.9 L Baso % (Auto) 0.7 Neut # (Auto) 5200 Lymph # (Auto) 900 L [place] # (Auto) 1000 H Eos # (Auto) 100 Baso # (Auto) 0 PT 12.6 INR 1.1 APTT 26 L Sodium 137 Potassium 4.2 Chloride 104 Carbon Dioxide 29 BUN 19 Creatinine 0.68 Estimated GFR > 60 BUN/Creatinine Ratio 27.9 H Glucose 76 L Calcium 8.8 Total Bilirubin 1.2 AST 29 ALT 22 Alkaline Phosphatase 70 Total Protein 7.0 Albumin 4.1 Globulin 2.9 Albumin/Globulin Ratio 1.4 Lipase 61 SARS-CoV-2 (PCR) 12/24/21 11:50 WBC RBC Hgb Hct MCV MCH MCHC RDW Plt Count Neut % (Auto) Lymph % (Auto) [place] % (Auto) Eos % (Auto) Baso % (Auto) Neut # (Auto) Lymph # (Auto) [place] # (Auto) Eos # (Auto) Baso # (Auto) PT INR APTT Sodium Potassium Chloride Carbon Dioxide BUN Creatinine Estimated GFR BUN/Creatinine Ratio Glucose Calcium Total Bilirubin AST ALT Alkaline Phosphatase Total Protein Albumin Globulin Albumin/Globulin Ratio Lipase SARS-CoV-2 (PCR) Negative Assessment & Plan Assessment and plan (1) Multiple rib fractures: Qualifiers: Encounter type: initial encounter Fracture type: closed Laterality: right Qualified Code(s): S22.41XA - Multiple fractures of ribs, right side, initial encounter for closed fracture Status: Acute (2) Hemopneumothorax on right: Status: Acute Plan Recommended a chest tube placed by Dr. Delatorre due to the finding of blood in the right thoracic cavity which would potentially lead to fiber thorax or empyema. This was successfully performed in the emergency department. The patient will be admitted for pain control and repeat chest x-ray in the morning. If he continues to have no air leak and there was minimal additional blood draining from the chest tube it can be removed tomorrow. Time Spent With Patient Critical Care time: I spent a total of [] minutes of critical care time on this patient's care today ; this time is exclusive of procedural time. Quality VTE Deep Vein Thrombosis/Pulmonary Embolism Present on Admission: No
[2021-12-24] MEDS: IBUPROFEN 600 MG TABLET PO (20:02)
--- NOTE | 2021-12-25 | DI.RAD.S_ITS ---
PROCEDURE: XR CHEST 1V INDICATIONS: chest tube TECHNIQUE: One view of the chest was acquired. COMPARISON: [facility], CR, XR CHEST 1V, 12/24/2021, 12:16. [facility], CR, XR CHEST 1V, 12/25/2021, 12:46. FINDINGS: Surgical changes and devices: Right-sided chest tube is present with distal tip projecting over the lower lobe. Lungs and pleura: There is a trace appearance of right apical pneumothorax, minimally less prominent when compared to prior exam. Mild dependent changes are present within the right base as well as blunting of the costophrenic angles bilaterally. Mediastinum: Mediastinal contours appear normal. Heart size is normal. Bones and chest wall: No suspicious bony lesions. Overlying soft tissues appear unremarkable. Right rib fractures are again noted. IMPRESSION: Interval placement of right chest tube. Right pneumothorax present although decreased compared to prior exam. Dependent changes predominantly within the right base with costophrenic angle blunting suggestive of effusions. Dictated by: Khloe Manuel M.D. on 12/25/2021 at 13:55 Approved by: Khloe Manuel M.D. on 12/25/2021 at 13:57
[2021-12-25] MEDS: DOCUSATE 100 MG CAPSULE PO ×2 (01:29→09:27)
[2021-12-25] MEDS: HYDROMORPHONE 0.5 MG INJ IV (01:29)
[2021-12-25 01:37] VITALS: BP 110/71; PULSE 62; RESP 12; TEMP 36.6; O2SAT 97
[2021-12-25 06:20] VITALS: BP 102/69; PULSE 61; RESP 19; TEMP 36.1; O2SAT 97
[2021-12-25] MEDS: HYDROCODONE/ACET 5/325 TABLET 1 TAB PO (09:30)
[2021-12-25] MEDS: SODIUM CHLORIDE 0.9% FLUSH 10 ML IV (10:31)
[2021-12-25 11:21] VITALS: BP 113/75; PULSE 60; RESP 22; TEMP 36.1; O2SAT 97
--- NOTE | 2021-12-25 12:30 | DI.RAD.S_ITS ---
PROCEDURE: XR CHEST 1V INDICATIONS: right pneumothorax TECHNIQUE: One view of the chest was acquired. COMPARISON: [facility], , XR CHEST 1V, 12/25/2021, 8:06. FINDINGS: Surgical changes and devices: Right chest tube has been removed Lungs and pleura: Mild dependent changes are present within the bases bilaterally. There is blunting of the costophrenic angles. Right pneumothorax is unchanged. Mediastinum: Mediastinal contours appear normal. Heart size is normal. Bones and chest wall: No suspicious bony lesions. Overlying soft tissues appear unremarkable. Right rib fractures are again noted. IMPRESSION: Interval removal of right chest tube with stable mild right pneumothorax. Dictated by: Khloe Manuel M.D. on 12/25/2021 at 17:35 Approved by: Khloe Manuel M.D. on 12/25/2021 at 17:36
--- NOTE | 2021-12-25 12:51 | CM.DANOTE ---
DCP Assessment: Payor: Long PCP: Aki Coleman MD Pt is a 61 y.o. M who presented to the ED with complaints of falling two days ago and felt like he got the wind knocked out of him. Pt was unable to sleep due to pain and told the ED that he had to sleep in a recliner. Pt went to the walk in clinic and they sent him to the ED due to bilirubin in the urine. Pt has been taking Aleve and ibuprofen for pain management. Chest x-ray and C/A/P CT ordered and showed that he had multiple fractured ribs and pneumothorax. Chest tube was placed by Dr. Patterson. Pt admitted as inpatient for further management of symptoms and diagnosis. DCP met with the patient this afternoon to discuss discharge planning. Pt sitting up in bed reading the newspaper. DCP introduced herself and role. Pt states that he lives with his spouse, Paula, in [place] in a 1 story home. Pt states that he is fairly independent at baseline and denies owning any DME's. Pt states that he still drives POV. Pt declines any discharge needs and states that his spouse will pick him up from the hospital when discharged. Pt states that Dr. Patterson is ordering another scan and then pt stated that he would get discharged. DCP does not identify any needs. White board updated. Instructed to call. Pt thankful for the discussion. P: Once pt is medically clear for discharge, pt to discharge home via spouse POV. 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 No History Provided By Patient Prior Living Arrangements House Household Members spouse Type of transporation used prior to Drives own vehicle admit Independent with ADL's Yes Is patient alert and oriented? Yes Caregiver for Another No Discharge Plan Home Referrals Initiated None needed Whiteboard Updated in Patient Room with Yes name and ext. # of Bag Making Machine Tender Comment Instructed to call Review Status In Process Please Provide Date Initial DC 12/25/21 Assessment Was Performed Next Review Type Continued Stay Review
--- NOTE | 2021-12-25 14:54 | PC.NURSE ---
Pt condition remains essentially unchanged. MD in to D/C chest tube, chest x-ray done Orders for D/C received HL x 2 discontinued intact. Home instructions given w/understanding Pt escorted by staff via W/C to waiting vehicle.
== END 2021-12-25 14:50 | disposition home or self-care (01) | DRG 200 ==
LOC: ED 09:04 → AC 12:23
PROVIDERS: Admitting Provider Surgery; Emergency Provider Emergency Medicine; PCP Family Medicine; Referring Provider Emergency Medicine; Visit Provider Surgery
DX: S27.2XXA Traumatic hemopneumothorax, initial encounter (principal); S22.41XA Multiple fractures of ribs, right side, initial encounter for closed fracture; W22.8XXA Striking against or struck by other objects, initial encounter
CPT/HCPCS: 32551; 36415; 71045; 71101; 71260; 74177; 80053; 83690; 85025; 85610; 85730; 87635; 96374; 96375; 99152; 99153; 99221; 99284; 99285; C9803; J1170; J2270; J2704; Q9967

== ENCOUNTER 2021-12-28 18:25 | Emergency (ER) | payer OTHER, SELFPAY ==
[2021-12-24 12:24] VITALS: BMI 22.5
--- NOTE | 2021-12-28 18:31 | DI.RAD.S_ITS ---
PROCEDURE: XR CHEST 2V INDICATIONS: recent chest tube,bleeding TECHNIQUE: 2 views of the chest were acquired. COMPARISON: [facility], CT, CT CHEST ABD PEL W CON, 12/24/2021, 10:21. [facility], CR, XR CHEST 1V, 12/24/2021, 12:16. [facility], CR, XR CHEST 1V, 12/25/2021, 8:06. [facility], CR, XR CHEST 1V, 12/25/2021, 12:46. FINDINGS: Surgical changes and devices: None. Lungs and pleura: Trace right pleural effusion. Right-sided pneumothorax appears a approved. Left lung appears clear. Mediastinum: Mediastinal contours are normal. Heart size is normal. Bones and chest wall: Displaced right-sided rib fractures are present. Generalized osteopenia. No suspicious bony abnormalities. Soft tissues appear unremarkable. IMPRESSION: Stable trace right pleural effusion. Right-sided pneumothorax appears to have resolved. Stable right-sided rib fractures. Dictated by: Roddy Barrera M.D. on 12/28/2021 at 19:09 Approved by: Roddy Barrera M.D. on 12/28/2021 at 19:13
[2021-12-28 18:34] VITALS: PULSE 77; O2SAT 99
[2021-12-28 18:43] VITALS: BP 123/60; PULSE 84; RESP 16; TEMP 36.9; O2SAT 96; BMI 23.6
[2021-12-28 19:13] LABS: Add Manual Diff / Slide Review NO; Basophils Absolute Auto 100 /uL (0-100); Basophils Percent Auto 1.3 % (0-2); Eosinophils Absolute Auto 400 /uL (0-450); Eosinophils Percent Auto 6.3 % (2-4); Hematocrit 43.8 % (41-53); Hemoglobin 14.8 g/dL (13.5-17.5); Lymphocytes Absolute Auto 1200 /uL (1100-4500); Lymphocytes Percent Auto 21.2 % (25-40); Mean Corpuscular HGB Conc 33.7 % (30-36); Mean Corpuscular Hemoglobin 28.2 PG (26-34); Mean Corpuscular Volume 83.7 fL (80-100); Monocytes Absolute Auto 600 /uL (0-900); Monocytes Percent Auto 9.8 % (3-14); Neutrophils Absolute Auto 3500 /uL (1500-7000); Neutrophils Percent Auto 61.4 % (50-75); Platelet Count 192 X10^3/uL (150-400); Red Blood Cell Count 5.24 X10^6/uL (4.5-5.9); Red Cell Distribution Width 13.3 % (11.6-14.8); White Blood Cell Count 5.7 X10^3/uL (4.5-11.0)
[2021-12-28] MEDS: LIDOCAINE 1% W/EPI 1 ML SUBCUT (19:14)
[2021-12-28 19:15] LABS: Alanine Aminotransferase 26 IU/L (<50); Albumin 4.5 g/dL (3.5-5.0); Albumin Globulin Ratio 1.3 (1.0-2.8); Alkaline Phosphatase 68 U/L (38-126); Aspartate Aminotransferase 37 IU/L (17-59); BUN Creatinine Ratio 22.5 (6-22); Bilirubin Total 0.6 mg/dL (0.2-1.3); Blood Urea Nitrogen 18 mg/dL (9-20); Calcium 9.3 mg/dL (8.4-10.2); Carbon Dioxide 24 mmol/L (22-32); Chloride 104 mmol/L (98-107); Estimated Glomerular Filt Rate > 60 mL/min (>60); Globulin 3.5 g/dL (1.7-4.1); Glucose 89 mg/dL (80-110); HEMOLYSIS 30 (0-50); Potassium 4.1 mmol/L (3.4-5.1); Sodium 139 mmol/L (137-145)
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
[2021-12-28 20:05] VITALS: BP 128/78; PULSE 88; RESP 16; O2SAT 97
== END 2021-12-28 20:05 | disposition home or self-care (01) ==
PROVIDERS: Emergency Provider Emergency Medicine; PCP Family Medicine
DX: J94.2 Hemothorax (principal)
CPT/HCPCS: 36415; 71046; 80053; 85025; 99284

== ENCOUNTER 2023-02-25 10:15 | Outpatient (RCR) | payer MEDICARE, OTHER, SELFPAY ==
[2021-12-24 12:24] VITALS: BMI 22.5
--- NOTE | 2022-12-27 13:00 | PT.OIE ---
Current Diagnoses Pain in right shoulder (12/27/22) Stiffness of right shoulder, not elsewhere classified (12/27/22) Stiffness of left foot, not elsewhere classified (12/27/22) Impingement syndrome of right shoulder (12/27/22) Pain in left foot (12/27/22) Past Medical History (Last Reviewed 12/28/21 @ 19:30 by Quincy Winters DO) Bilateral shoulder pain Body posture problem Encounter for vitamin deficiency screening History of kidney stones Normal physical exam, routine Screening for hyperlipidemia Screening for prostate cancer Somatic dysfunction of lower extremity Toe pain, left Past Surgical History (Last Reviewed 12/28/21 @ 19:30 by Quincy Winters DO) History of inguinal hernia repair Visit Care Team Role Provider Type Davey Coleman DO Family Provider Physician Primary Care Provider Specialty: Family Practice Address: [address] [place] [address] Email: MERARY Nieto Attending Provider Advanced Top Knitter Referring Provider Specialty: Medical Address: [address] [place] [address], [id number] Email: [email or web address] Physical Therapy Initial Evaluation PT-OP-A Visit Information Start: 12/27/22 15:06 Freq: Status: Active Protocol: Document 12/27/22 12:20 DCW (Rec: 12/27/22 15:16 DCW [id number]) Out-Patient Physical Therapy Visit Information Visit Information Visit Type Initial Evaluation Visit Start Time 12:20 Visit Stop Time 13:00 Total Visit Minutes 40 Visit Number 1 Number of 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 Pt reports his typical exercise activity of choice is swimming, and on November 02 was out swimming and felt increased pain in his right shoulder. Reports it has continued ever since, but is very slowly getting better. Reports pain is worst with overhead lifting, doffing his shirt, or reaching back into extension/horizontal abduction . Also worsens at night. Has not been able to return to swimming. Additionally, notes he has been having foot pain, specifically on the ball of his left foot between the 3rd and 4th toes. This has been a long-standing injury for him, but during a prior course of PT, he had ultrasound treatment for it, which seemed to help a lot, so he is hoping to get that addressed in addition to his shoulder. Bothers him most when first starting to run. Treatment Goals Patient/Caregiver Goals Return to swimming and running pain-free PT-OP-C Subjective Start: 12/27/22 15:06 Freq: Status: Active Protocol: Document 12/27/22 12:20 DCW (Rec: 12/27/22 15:16 DCW [id number]) OP-PT Subjective Patient Comments Patient Comments I think it is slowly, SLOWLY getting better. Patient Reported Progress Improving Patient Questionnaires Foot & Ankle Ability Measure- ADL and Sports FAAM-ADL Score 94% FAAM-Sport Score 82.1% Lower Extremity Functional Scale LEFS Score 68/80 = 85% Quick Dash- Upper Extremity Quick Dash UE Score 38.64% PT-OP-E Functional Tests Start: 12/27/22 15:06 Freq: Status: Active Protocol: Document 12/27/22 12:20 DCW (Rec: 12/27/22 15:16 DCW [id number]) Functional Tests Apley's Scratch Test Action 1- Left Posterior opposite shoulder Action 1- Right Lateral opposite shoulder Action 2- Left T4 Action 2- Right T4 Action 3- Left T8 Action 3- Right L5 PT-OP-F Manual Assessment Start: 12/27/22 15:06 Freq: Status: Active Protocol: Document 12/27/22 12:20 DCW (Rec: 12/27/22 16:50 DCW [id number]) Manual Assessments Soft Tissue Assessment Soft Tissue Mobility Assessment Mild tone and tenderness to palpation 1/4: complaint of pain right supraspinatus and infraspinatus. Tenderness to palpation 2/4: pain with wincing right bicipital groove Joint Mobility Assessment Joint Mobility Assessment Tenderness to palpation 3/4: Wincing and withdraw R 3rd MTP joint PT-OP-K Range of Motion Start: 12/27/22 15:06 Freq: Status: Active Protocol: Document 12/27/22 12:20 DCW (Rec: 12/27/22 16:50 DCW [id number]) Shoulder Goniometric Range of Motion Shoulder Right Active Shoulder ROM WFL No Testing Position Sitting Flexion 120 Abduction 138 External Rotation at 0 degrees Abduction 42 Internal Rotation Behind Back (text) L5 Left Active Shoulder ROM WFL Yes Testing Position Sitting Flexion 180 Abduction 180 External Rotation at 0 degrees Abduction 60 Internal Rotation Behind Back (text) T8 PT-OP-L Special Tests Start: 12/27/22 15:06 Freq: Status: Active Protocol: Document 12/27/22 12:20 DCW (Rec: 12/27/22 16:50 DCW [id number]) Special Tests Shoulder Special Tests Yergason's Biceps Test Results Positive R Painful Arc Test Results Mildly positive R Passive ER Rotator Cuff Test Results Mildly positive R Lift-Off Rotator Cuff Test Results Mildly positive R Rea Wellington Impingement Test Results Mildly positive R Grind Labrum Test Results Negative Drop Arm Rotator Cuff Test Results Mildly positive R Clunk Test Test Results Negative Belly Press Test Results Mildly positive R Apprehension Test Test Results Mildly positive R AC Joint Compression Test Results Negative PT-OP-M Strength Start: 12/27/22 15:06 Freq: Status: Active Protocol: Document 12/27/22 12:20 DCW (Rec: 12/27/22 16:50 DCW [id number]) Shoulder Strength Shoulder Manual Muscle Testing Right Flexion 5 Normal Abduction (C5) 5 Normal External Rotation 4- Good- Internal Rotation 5 Normal Left Flexion 5 Normal Abduction (C5) 5 Normal External Rotation 5 Normal Internal Rotation 5 Normal PT-OP-T Assessment and Plan Start: 12/27/22 15:06 Freq: Status: Active Protocol: Document 12/27/22 12:20 DCW (Rec: 12/27/22 16:59 DCW [id number]) Physical Therapy Assessment Rehab Potential Rehabilitation Potential Good Evaluation Complexity Number of Personal Factors/Comorbidities 1-2 Number of Body Systems Impaired 3 Clinical Presentation at Evaluation Stable Impairments Impairments Functional Activities, Functional Mobility,Pain,ROM, Soft Tissue Mobility,Strength, Tone Goals Three Impairment Pt experiences left foot pain when running Theater Set Production Designer Goal (LTG) Pt to return to running pain free LTG Duration 02/26/23 Two Impairment Pt unable to participate in usual activity of swimming due to shoulder pain Theater Set Production Designer Goal (LTG) Pt to return to normal level of swimming in order to demonstrate decreased right shoulder dysfunction LTG Duration 02/26/23 One Impairment Pt does not have an appropriate home exercise program Short Term Goal (STG) Pt to be independent and compliant with an appropriate HEP STG Duration 01/27/23 Assessment Summary Assessment Pt presents with signs and symptoms consistent with potential right shoulder impingement, resulting in pain with certain movements, especially overhead or reaching back, as well as likely LH biceps tendon involvement. Difficult to truly DDx, due to most shoulder special tests resulting positive for symptoms, so pt may potentially have some rotator cuff involvement, however at this time it appears that he is simply very inflamed and his entire shoulder girdle has tightened up in response. Pt currently limited with ability to perform his usual physical activities, particularly swimming. Pt should benefit from skilled therapy focusing on improving shoulder ROM/ flexibility, joint mobilizations, anti- inflammatory modalities, and strengthening. 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 Typically hurts the most when he first begins running, tends to fade over time. Pt had previously been treated at this clinic for this same symptom, did respond well at the time to US, will likely benefit from US and STM /joint mobilizations. Physical Therapy Plan Frequency and Duration Frequency of Treatment 2x/Week Plan of Care Start Date 12/27/22 Plan of Care End Date 02/26/23 Therapeutic Interventions Therapeutic Interventions Home Exercise Program,Joint Mobilizations,Manual Therapy, Neuromuscular Re-education, Patient/Caregiver Education, Self-Care/Home Management,Soft Tissue Mobilization,Taping, Therapeutic Activities, Therapeutic Exercises Modalities Cold Pack/Ice Massage,Electric Stimulation,Hot Packs, Iontophoresis,Ultrasound Other Therapeutic Interventions Iontophoresis /c Dexamethasone 10 mg/mL Next Visit Focus/Plan Next Note Type Treatment Note Next Visit Plan STM, Anti-imflammatory modalities, joint mobilizations, strengthening
--- NOTE | 2022-12-27 13:00 | PT.OPPOC ---
Physical, Occupational & Speech Therapy At [facility] Current Diagnoses Pain in right shoulder (12/27/22) Stiffness of right shoulder, not elsewhere classified (12/27/22) Stiffness of left foot, not elsewhere classified (12/27/22) Impingement syndrome of right shoulder (12/27/22) Pain in left foot (12/27/22) Visit Care Team Role Provider Type Davey Coleman DO Family Provider Physician Primary Care Provider Specialty: Family Practice Address: [address] [place] [address] Email: MERARY Nieto Attending Provider Advanced Toll Gate Keeper Referring Provider Specialty: Medical Address: [address] [place] [address], [facility] Email: [email or web address] Plan Of Care PT-OP-T Assessment and Plan Start: 12/27/22 15:06 Freq: Status: Active Protocol: Document 12/27/22 12:20 DCW (Rec: 12/27/22 16:59 DCW [id number]) Physical Therapy Assessment Rehab Potential Rehabilitation Potential Good Evaluation Complexity Number of Personal Factors/Comorbidities 1-2 Number of Body Systems Impaired 3 Clinical Presentation at Evaluation Stable Impairments Impairments Functional Activities, Functional Mobility,Pain,ROM, Soft Tissue Mobility,Strength, Tone Goals Three Impairment Pt experiences left foot pain when running Dance Entertainer Goal (LTG) Pt to return to running pain free LTG Duration 02/26/23 Two Impairment Pt unable to participate in usual activity of swimming due to shoulder pain Snf Goal (LTG) Pt to return to normal level of swimming in order to demonstrate decreased right shoulder dysfunction LTG Duration 02/26/23 One Impairment Pt does not have an appropriate home exercise program Short Term Goal (STG) Pt to be independent and compliant with an appropriate HEP STG Duration 01/27/23 Assessment Summary Assessment Pt presents with signs and symptoms consistent with potential right shoulder impingement, resulting in pain with certain movements, especially overhead or reaching back, as well as likely LH biceps tendon involvement. Difficult to truly DDx, due to most shoulder special tests resulting positive for symptoms, so pt may potentially have some rotator cuff involvement, however at this time it appears that he is simply very inflamed and his entire shoulder girdle has tightened up in response. Pt currently limited with ability to perform his usual physical activities, particularly swimming. Pt should benefit from skilled therapy focusing on improving shoulder ROM/ flexibility, joint mobilizations, anti- inflammatory modalities, and strengthening. 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 Typically hurts the most when he first begins running, tends to fade over time. Pt had previously been treated at this clinic for this same symptom, did respond well at the time to US, will likely benefit from US and STM /joint mobilizations. Physical Therapy Plan Frequency and Duration Frequency of Treatment 2x/Week Plan of Care Start Date 12/27/22 Plan of Care End Date 02/26/23 Therapeutic Interventions Therapeutic Interventions Home Exercise Program,Joint Mobilizations,Manual Therapy, Neuromuscular Re-education, Patient/Caregiver Education, Self-Care/Home Management,Soft Tissue Mobilization,Taping, Therapeutic Activities, Therapeutic Exercises Modalities Cold Pack/Ice Massage,Electric Stimulation,Hot Packs, Iontophoresis,Ultrasound Other Therapeutic Interventions Iontophoresis /c Dexamethasone 10 mg/mL Next Visit Focus/Plan Next Note Type Treatment Note Next Visit Plan STM, Anti-inflammatory modalities, joint mobilizations, strengthening Plan of Care Dates Plan of Care Start Date 12/27/22 Plan of Care End Date 02/26/23 Electronically Signed by: Jose Alfredo Cloud, JACOB 12/30/22 4490 If you are in agreement with this Plan of Care, please return a signed and dated copy. I have reviewed this Plan of Care and certify that the skilled therapy services above are required to meet the patient?s needs. Physician Signature Date Printed Name and Credentials Clinical Instructor Signature Printed Name and Credentials
--- NOTE | 2023-01-02 10:45 | PT.OTN ---
Current Diagnoses Pain in right shoulder (01/02/23) Stiffness of right shoulder, not elsewhere classified (01/02/23) Stiffness of left foot, not elsewhere classified (01/02/23) Impingement syndrome of right shoulder (01/02/23) Pain in left foot (01/02/23) Physical Therapy Treatment Note PT-OP-A Visit Information Start: 12/27/22 15:06 Freq: Status: Active Protocol: Document 01/02/23 10:00 SP (Rec: 01/02/23 10:49 SP [id number]) Out-Patient Physical Therapy Visit Information Visit Information Visit Type Treatment Note Visit Start Time 10:00 Visit Stop Time 10:45 Total Visit Minutes 45 Visit Number 2 Number of INFORMATION TECHNOLOGY INTERN Visits 1 Evaluation Information Evaluation Date 12/27/22 PT-OP-B Current Condition Start: 12/27/22 15:06 Freq: Status: Active Protocol: Document 12/27/22 12:20 DCW (Rec: 12/30/22 17:22 DCW [id number]) Current Condition History of Current Condition Onset Date 11/02/22 Current Complaints Pain with overhead motions after swimming, foot pain History of Current Condition Pt is a 62 year old male presenting with a two month history of right shoulder pain . Pt reports his typical exercise activity of choice is swimming, and on November 02 was out swimming and felt increased pain in his right shoulder. Reports it has continued ever since, but is very slowly getting better. Reports pain is worst with overhead lifting, doffing his shirt, or reaching back into extension/horizontal abduction . Also worsens at night. Has not been able to return to swimming. Additionally, notes he has been having foot pain, specifically on the ball of his left foot between the 3rd and 4th toes. This has been a long-standing injury for him, but during a prior course of PT, he had ultrasound treatment for it, which seemed to help a lot, so he is hoping to get that addressed in addition to his shoulder. Bothers him most when first starting to run. Treatment Goals Patient/Caregiver Goals Return to swimming and running pain-free PT-OP-C Subjective Start: 12/27/22 15:06 Freq: Status: Active Protocol: Document 01/02/23 10:00 SP (Rec: 01/02/23 10:49 SP [id number]) OP-PT Subjective Patient Comments Patient Comments Pt report pain R shld worse pain sleeping reaching out move blankets, reaching behind back and reaching over head. But notices is slowly progressing feeling better. PT-OP-E Functional Tests Start: 12/27/22 15:06 Freq: Status: Active Protocol: Document 12/27/22 12:20 DCW (Rec: 12/27/22 15:16 DCW [id number]) Functional Tests Apley's Scratch Test Action 1- Left Posterior opposite shoulder Action 1- Right Lateral opposite shoulder Action 2- Left T4 Action 2- Right T4 Action 3- Left T8 Action 3- Right L5 PT-OP-F Manual Assessment Start: 12/27/22 15:06 Freq: Status: Active Protocol: Document 12/27/22 12:20 DCW (Rec: 12/27/22 16:50 DCW [id number]) Manual Assessments Soft Tissue Assessment Soft Tissue Mobility Assessment Mild tone and tenderness to palpation 1/4: complaint of pain right supraspinatus and infraspinatus. Tenderness to palpation 2/4: pain with wincing right bicipital groove Joint Mobility Assessment Joint Mobility Assessment Tenderness to palpation 3/4: Wincing and withdraw R 3rd MTP joint PT-OP-K Range of Motion Start: 12/27/22 15:06 Freq: Status: Active Protocol: Document 12/27/22 12:20 DCW (Rec: 12/27/22 16:50 DCW [id number]) Shoulder Goniometric Range of Motion Shoulder Right Active Shoulder ROM WFL No Testing Position Sitting Flexion 120 Abduction 138 External Rotation at 0 degrees Abduction 42 Internal Rotation Behind Back (text) L5 Left Active Shoulder ROM WFL Yes Testing Position Sitting Flexion 180 Abduction 180 External Rotation at 0 degrees Abduction 60 Internal Rotation Behind Back (text) T8 PT-OP-L Special Tests Start: 12/27/22 15:06 Freq: Status: Active Protocol: Document 12/27/22 12:20 DCW (Rec: 12/27/22 16:50 DCW [id number]) Special Tests Shoulder Special Tests Yergason's Biceps Test Results Positive R Painful Arc Test Results Mildly positive R Passive ER Rotator Cuff Test Results Mildly positive R Lift-Off Rotator Cuff Test Results Mildly positive R Rea Wellington Impingement Test Results Mildly positive R Grind Labrum Test Results Negative Drop Arm Rotator Cuff Test Results Mildly positive R Clunk Test Test Results Negative Belly Press Test Results Mildly positive R Apprehension Test Test Results Mildly positive R AC Joint Compression Test Results Negative PT-OP-M Strength Start: 12/27/22 15:06 Freq: Status: Active Protocol: Document 12/27/22 12:20 DCW (Rec: 12/27/22 16:50 DCW [id number]) Shoulder Strength Shoulder Manual Muscle Testing Right Flexion 5 Normal Abduction (C5) 5 Normal External Rotation 4- Good- Internal Rotation 5 Normal Left Flexion 5 Normal Abduction (C5) 5 Normal External Rotation 5 Normal Internal Rotation 5 Normal PT-OP-Q Treatments Start: 12/27/22 15:06 Freq: Status: Active Protocol: Document 01/02/23 10:00 SP (Rec: 01/02/23 10:49 SP [id number]) Therapeutic Exercises Sidelying Exercises open book Sidelying Exercise Name added HEP Side right Reps/Minutes 5 reps, 3 breath end feel Comments cued scap glide, head turn with arm- good painfree Sitting Exercises shld ER Sitting Exercise Name added HEP Side bilateral Resistance Tb #2 (aqua green) Reps/Minutes [id number] Comments cued scap neutral- painfree resp scap retraction Sitting Exercise Name added HEP Side bilateral Reps/Minutes 5 SH x10 Comments cued chin tuck/ retract neutral, interscap draw back, elongated posture Standing Exercises wall posture Standing Exercise Name added HEP w/ arm at side w/ small range ER Equipment Used (add towel behind head) Reps/Minutes 10 SH x3 Comments cued chin tuck CS back neutral , TA/ LB toward wall, impr scap w/ ER shld ext Standing Exercise Name added HEP Resistance Tb #2 (aqua green) Reps/Minutes x10 reps Comments cued chin tuck/CS neutral, scap retract con/ecc, light downward aware/no UT Manual Therapy Treatment Soft Tissue Mobilization R shld Body Location UT, LS, infrasp, pec, coracobrachialis, Mobilization Type Strumming,Sustained Pressure, Other Intensity/Depth Moderate Body Position Hooklying Comments manual, MWM shld functional mov't PROM> AROM punch fwd, ER Joint Mobilizations R scapulothoracic Direction retraction/depression Grade II Body Position Sidelying Comments manual and isotonic re-ed. Added open book for carryover R GH Jt Direction inferior, posterior Grade II Body Position Hooklying Comments manual with ed for scap positioning carryover during ex support GH resisted ext and ER. Self-Care/Home Management Treatment Education Other Education Brief discussion use pillows sidesleeping. Gave HO PT-OP-T Assessment and Plan Start: 12/27/22 15:06 Freq: Status: Active Protocol: Document 01/02/23 10:00 SP (Rec: 01/02/23 10:49 SP [id number]) Physical Therapy Assessment Goals Three Impairment Pt experiences left foot pain when running Fpc Goal (LTG) Pt to return to running pain free LTG Duration 02/26/23 Two Impairment Pt unable to participate in usual activity of swimming due to shoulder pain Fpc Goal (LTG) Pt to return to normal level of swimming in order to demonstrate decreased right shoulder dysfunction LTG Duration 02/26/23 One Impairment Pt does not have an appropriate home exercise program Short Term Goal (STG) Pt to be independent and compliant with an appropriate HEP STG Duration 01/27/23 Assessment Summary Assessment Pt good understanding and better scapular positioning retraction/depression mobility post manual, ed anatomy/ mechanics carryover improved elongated posture, noted decrease winging L scapula. Discussed use pillows for side sleep positioning. Pt reported decrease pain with scap postiioning and humeral depression cues throughout ther ex. Physical Therapy Plan Frequency and Duration Frequency of Treatment 2x/Week Plan of Care Start Date 12/27/22 Plan of Care End Date 02/26/23 Therapeutic Interventions Therapeutic Interventions Home Exercise Program,Joint Mobilizations,Manual Therapy, Neuromuscular Re-education, Patient/Caregiver Education, Self-Care/Home Management,Soft Tissue Mobilization,Taping, Therapeutic Activities, Therapeutic Exercises Modalities Cold Pack/Ice Massage,Electric Stimulation,Hot Packs, Iontophoresis,Ultrasound Other Therapeutic Interventions Iontophoresis /c Dexamethasone 10 mg/mL Next Visit Focus/Plan Next Note Type Treatment Note Next Visit Plan REcheck HEP: see HOs. Add RTC TB ex, IR stretch, pec stretch. POC: STM, Anti-imflammatory modalities, joint mobilizations, strengthening
--- NOTE | 2023-01-07 17:10 | PT.OTN ---
Current Diagnoses Pain in right shoulder (01/07/23) Stiffness of right shoulder, not elsewhere classified (01/07/23) Stiffness of left foot, not elsewhere classified (01/07/23) Impingement syndrome of right shoulder (01/07/23) Pain in left foot (01/07/23) Physical Therapy Treatment Note PT-OP-A Visit Information Start: 12/27/22 15:06 Freq: Status: Active Protocol: Document 01/07/23 16:20 DCW (Rec: 01/07/23 17:10 DCW [id number]) Out-Patient Physical Therapy Visit Information Visit Information Visit Type Treatment Note Visit Start Time 16:20 Visit Stop Time 17:05 Total Visit Minutes 45 Visit Number 3 Number of HOUSE STEWARD/STEWARDESS Visits 0 Evaluation Information Evaluation Date 12/27/22 PT-OP-B Current Condition Start: 12/27/22 15:06 Freq: Status: Active Protocol: Document 12/27/22 12:20 DCW (Rec: 12/30/22 17:22 DCW [id number]) Current Condition History of Current Condition Onset Date 11/02/22 Current Complaints Pain with overhead motions after swimming, foot pain History of Current Condition Pt is a 62 year old male presenting with a two month history of right shoulder pain . Pt reports his typical exercise activity of choice is swimming, and on November 02 was out swimming and felt increased pain in his right shoulder. Reports it has continued ever since, but is very slowly getting better. Reports pain is worst with overhead lifting, doffing his shirt, or reaching back into extension/horizontal abduction . Also worsens at night. Has not been able to return to swimming. Additionally, notes he has been having foot pain, specifically on the ball of his left foot between the 3rd and 4th toes. This has been a long-standing injury for him, but during a prior course of PT, he had ultrasound treatment for it, which seemed to help a lot, so he is hoping to get that addressed in addition to his shoulder. Bothers him most when first starting to run. Treatment Goals Patient/Caregiver Goals Return to swimming and running pain-free PT-OP-C Subjective Start: 12/27/22 15:06 Freq: Status: Active Protocol: Document 01/07/23 16:20 DCW (Rec: 01/07/23 17:10 DCW [id number]) OP-PT Subjective Patient Comments Patient Comments It's like two steps forward and one step back. My shoulder has been feeling pretty good during the day, but then work me up seven times last night. PT-OP-E Functional Tests Start: 12/27/22 15:06 Freq: Status: Active Protocol: Document 12/27/22 12:20 DCW (Rec: 12/27/22 15:16 DCW [id number]) Functional Tests Apley's Scratch Test Action 1- Left Posterior opposite shoulder Action 1- Right Lateral opposite shoulder Action 2- Left T4 Action 2- Right T4 Action 3- Left T8 Action 3- Right L5 PT-OP-F Manual Assessment Start: 12/27/22 15:06 Freq: Status: Active Protocol: Document 12/27/22 12:20 DCW (Rec: 12/27/22 16:50 DCW [id number]) Manual Assessments Soft Tissue Assessment Soft Tissue Mobility Assessment Mild tone and tenderness to palpation 1/4: complaint of pain right supraspinatus and infraspinatus. Tenderness to palpation 2/4: pain with wincing right bicipital groove Joint Mobility Assessment Joint Mobility Assessment Tenderness to palpation 3/4: Wincing and withdraw R 3rd MTP joint PT-OP-K Range of Motion Start: 12/27/22 15:06 Freq: Status: Active Protocol: Document 12/27/22 12:20 DCW (Rec: 12/27/22 16:50 DCW [id number]) Shoulder Goniometric Range of Motion Shoulder Right Active Shoulder ROM WFL No Testing Position Sitting Flexion 120 Abduction 138 External Rotation at 0 degrees Abduction 42 Internal Rotation Behind Back (text) L5 Left Active Shoulder ROM WFL Yes Testing Position Sitting Flexion 180 Abduction 180 External Rotation at 0 degrees Abduction 60 Internal Rotation Behind Back (text) T8 PT-OP-L Special Tests Start: 12/27/22 15:06 Freq: Status: Active Protocol: Document 12/27/22 12:20 DCW (Rec: 12/27/22 16:50 DCW [id number]) Special Tests Shoulder Special Tests Yergason's Biceps Test Results Positive R Painful Arc Test Results Mildly positive R Passive ER Rotator Cuff Test Results Mildly positive R Lift-Off Rotator Cuff Test Results Mildly positive R Rea Wellington Impingement Test Results Mildly positive R Grind Labrum Test Results Negative Drop Arm Rotator Cuff Test Results Mildly positive R Clunk Test Test Results Negative Belly Press Test Results Mildly positive R Apprehension Test Test Results Mildly positive R AC Joint Compression Test Results Negative PT-OP-M Strength Start: 12/27/22 15:06 Freq: Status: Active Protocol: Document 12/27/22 12:20 DCW (Rec: 12/27/22 16:50 DCW [id number]) Shoulder Strength Shoulder Manual Muscle Testing Right Flexion 5 Normal Abduction (C5) 5 Normal External Rotation 4- Good- Internal Rotation 5 Normal Left Flexion 5 Normal Abduction (C5) 5 Normal External Rotation 5 Normal Internal Rotation 5 Normal PT-OP-Q Treatments Start: 12/27/22 15:06 Freq: Status: Active Protocol: Document 01/07/23 16:20 DCW (Rec: 01/07/23 17:10 DCW [id number]) Therapeutic Exercises Supine Exercises Horizontal Adduction Supine Exercise Name Horizontal Adduction Side bilateral Resistance 4# Serratus punch Supine Exercise Name Serratus punch Side bilateral Resistance 4# Standing Exercises Pec Stretch Standing Exercise Name Corner pec stretch Side bilateral Manual Therapy Treatment Soft Tissue Mobilization R shld Body Location UT, LS, infrasp, pec, coracobrachialis, Mobilization Type Strumming,Sustained Pressure, Other Intensity/Depth Moderate Body Position Hooklying Comments manual, MWM shld functional mov't PROM> AROM punch fwd, ER Joint Mobilizations R scapulothoracic Direction retraction/depression Grade II Body Position Sidelying R GH Jt Direction inferior, posterior Grade II Body Position Hooklying PT-OP-R Modalities Start: 01/07/23 16:17 Freq: Status: Active Protocol: Document 01/07/23 16:20 DCW (Rec: 01/07/23 17:10 DCW [id number]) Ultrasound Therapy Treatment left MTP 3rd and 4th toes Treatment Duration (minutes) 8 Patient Position Prone Coupling Medium Ultrasound Gel Applicator Size (cm2) 2 Duty Cycle 100% PT-OP-T Assessment and Plan Start: 12/27/22 15:06 Freq: Status: Active Protocol: Document 01/07/23 16:20 DCW (Rec: 01/07/23 17:10 DCW [id number]) Physical Therapy Assessment Impairments Impairments Functional Activities, Functional Mobility,Pain,ROM, Soft Tissue Mobility,Strength, Tone Goals Three Impairment Pt experiences left foot pain when running Jail Goal (LTG) Pt to return to running pain free LTG Duration 02/26/23 Two Impairment Pt unable to participate in usual activity of swimming due to shoulder pain Dictaphone Mechanic Goal (LTG) Pt to return to normal level of swimming in order to demonstrate decreased right shoulder dysfunction LTG Duration 02/26/23 One Impairment Pt does not have an appropriate home exercise program Short Term Goal (STG) Pt to be independent and compliant with an appropriate HEP STG Duration 01/27/23 Assessment Summary Assessment Pt demonstrating improved shoulder ROM following treatment today, agreeable to addition of serratus punch, horizontal adduction, and pec stretch to HEP. Did well with US to foot. Physical Therapy Plan Frequency and Duration Frequency of Treatment 2x/Week Plan of Care Start Date 12/27/22 Plan of Care End Date 02/26/23 Therapeutic Interventions Therapeutic Interventions Home Exercise Program,Joint Mobilizations,Manual Therapy, Neuromuscular Re-education, Patient/Caregiver Education, Self-Care/Home Management,Soft Tissue Mobilization,Taping, Therapeutic Activities, Therapeutic Exercises Modalities Cold Pack/Ice Massage,Electric Stimulation,Hot Packs, Iontophoresis,Ultrasound Other Therapeutic Interventions Iontophoresis /c Dexamethasone 10 mg/mL Next Visit Focus/Plan Next Note Type Treatment Note Next Visit Plan REcheck HEP: see HOs. POC: STM, Anti-imflammatory modalities, joint mobilizations, strengthening
--- NOTE | 2023-01-10 15:23 | PT.OTN ---
Current Diagnoses Pain in right shoulder (01/10/23) Stiffness of right shoulder, not elsewhere classified (01/10/23) Stiffness of left foot, not elsewhere classified (01/10/23) Impingement syndrome of right shoulder (01/10/23) Pain in left foot (01/10/23) Physical Therapy Treatment Note PT-OP-A Visit Information Start: 12/27/22 15:06 Freq: Status: Active Protocol: Document 01/10/23 14:30 SP (Rec: 01/10/23 15:55 SP [id number]) Out-Patient Physical Therapy Visit Information Visit Information Visit Type Treatment Note Visit Start Time 14:30 Visit Stop Time 15:23 Total Visit Minutes 53 Visit Number 4 Number of LOOM WINDER TENDER Visits 1 Evaluation Information Evaluation Date 12/27/22 PT-OP-B Current Condition Start: 12/27/22 15:06 Freq: Status: Active Protocol: Document 12/27/22 12:20 DCW (Rec: 12/30/22 17:22 DCW [id number]) Current Condition History of Current Condition Onset Date 11/02/22 Current Complaints Pain with overhead motions after swimming, foot pain History of Current Condition Pt is a 62 year old male presenting with a two month history of right shoulder pain . Pt reports his typical exercise activity of choice is swimming, and on November 02 was out swimming and felt increased pain in his right shoulder. Reports it has continued ever since, but is very slowly getting better. Reports pain is worst with overhead lifting, doffing his shirt, or reaching back into extension/horizontal abduction . Also worsens at night. Has not been able to return to swimming. Additionally, notes he has been having foot pain, specifically on the ball of his left foot between the 3rd and 4th toes. This has been a long-standing injury for him, but during a prior course of PT, he had ultrasound treatment for it, which seemed to help a lot, so he is hoping to get that addressed in addition to his shoulder. Bothers him most when first starting to run. Treatment Goals Patient/Caregiver Goals Return to swimming and running pain-free PT-OP-C Subjective Start: 12/27/22 15:06 Freq: Status: Active Protocol: Document 01/10/23 14:30 SP (Rec: 01/10/23 15:55 SP [id number]) OP-PT Subjective Patient Comments Patient Comments Pt reports able reach little higher R shld but still irritated end range/ not excruating pain. PT-OP-E Functional Tests Start: 12/27/22 15:06 Freq: Status: Active Protocol: Document 12/27/22 12:20 DCW (Rec: 12/27/22 15:16 DCW [id number]) Functional Tests Apley's Scratch Test Action 1- Left Posterior opposite shoulder Action 1- Right Lateral opposite shoulder Action 2- Left T4 Action 2- Right T4 Action 3- Left T8 Action 3- Right L5 PT-OP-F Manual Assessment Start: 12/27/22 15:06 Freq: Status: Active Protocol: Document 12/27/22 12:20 DCW (Rec: 12/27/22 16:50 DCW [id number]) Manual Assessments Soft Tissue Assessment Soft Tissue Mobility Assessment Mild tone and tenderness to palpation 1/4: complaint of pain right supraspinatus and infraspinatus. Tenderness to palpation 2/4: pain with wincing right bicipital groove Joint Mobility Assessment Joint Mobility Assessment Tenderness to palpation 3/4: Wincing and withdraw R 3rd MTP joint PT-OP-K Range of Motion Start: 12/27/22 15:06 Freq: Status: Active Protocol: Document 12/27/22 12:20 DCW (Rec: 12/27/22 16:50 DCW [id number]) Shoulder Goniometric Range of Motion Shoulder Right Active Shoulder ROM WFL No Testing Position Sitting Flexion 120 Abduction 138 External Rotation at 0 degrees Abduction 42 Internal Rotation Behind Back (text) L5 Left Active Shoulder ROM WFL Yes Testing Position Sitting Flexion 180 Abduction 180 External Rotation at 0 degrees Abduction 60 Internal Rotation Behind Back (text) T8 PT-OP-L Special Tests Start: 12/27/22 15:06 Freq: Status: Active Protocol: Document 12/27/22 12:20 DCW (Rec: 12/27/22 16:50 DCW [id number]) Special Tests Shoulder Special Tests Yergason's Biceps Test Results Positive R Painful Arc Test Results Mildly positive R Passive ER Rotator Cuff Test Results Mildly positive R Lift-Off Rotator Cuff Test Results Mildly positive R Rea [place] Impingement Test Results Mildly positive R Grind Labrum Test Results Negative Drop Arm Rotator Cuff Test Results Mildly positive R Clunk Test Test Results Negative Belly Press Test Results Mildly positive R Apprehension Test Test Results Mildly positive R AC Joint Compression Test Results Negative PT-OP-M Strength Start: 12/27/22 15:06 Freq: Status: Active Protocol: Document 12/27/22 12:20 DCW (Rec: 12/27/22 16:50 DCW [id number]) Shoulder Strength Shoulder Manual Muscle Testing Right Flexion 5 Normal Abduction (C5) 5 Normal External Rotation 4- Good- Internal Rotation 5 Normal Left Flexion 5 Normal Abduction (C5) 5 Normal External Rotation 5 Normal Internal Rotation 5 Normal PT-OP-Q Treatments Start: 12/27/22 15:06 Freq: Status: Active Protocol: Document 01/10/23 14:30 SP (Rec: 01/10/23 15:55 SP [id number]) Therapeutic Exercises Supine Exercises Horizontal Adduction Supine Exercise Name Horizontal Adduction<> Abduction supported range Side bilateral Resistance 4# DB Reps/Minutes x10 Comments cued no UT, neutral scap Serratus punch Supine Exercise Name Serratus punch Side bilateral Resistance 4# DB Reps/Minutes x10 Sidelying Exercises open book Sidelying Exercise Name HEP Side right Reps/Minutes 5 reps Comments cued scap glide, head turn with arm- good painfree Sitting Exercises eccentric FF, Scaption TB Sitting Exercise Name added to HEP Side right Resistance TB #2 orange Reps/Minutes 5 reps, 2 SH Comments cued sit back fully, TA/ no LB arch, eccentric FF& scaption, improved ROM Standing Exercises self STMs Standing Exercise Name added perform as needed: distal lat, Teres Equipment Used racquetball on wall, end broom handle Comments good feedback response massage to specific needed for self appl shld ER Standing Exercise Name added to HEP Side right Resistance Tb #2 Reps/Minutes x10 Comments tactile/vcs scap set back/dep Pec Stretch Standing Exercise Name Corner pec stretch- reviewed inPT Side bilateral Reps/Minutes 10 HS Comments challenge R shld ER shld ext Standing Exercise Name reviewed HEP Resistance Tb #2 (aqua green) Reps/Minutes x10 reps Comments cued chin tuck/CS neutral, scap retract con/ecc, light downward aware/no UT Manual Therapy Treatment Soft Tissue Mobilization R shld Body Location UT, LS, infrasp, pec, coracobrachialis, teres, distal lat Mobilization Type Strumming,Sustained Pressure, Other Intensity/Depth Moderate Body Position Hooklying Comments manual, MWM shld functional mov't PROM> AROM punch fwd, ER , FF (on side), ed self application Joint Mobilizations rib 1-2 Joint R Comments caudal with FM FF R scapulothoracic Direction retraction/depression Grade II Body Position Sidelying Comments manual and open book for carryover R GH Jt Direction inferior, posterior Grade II Body Position Hooklying Comments guarded so stopped, improved sidelying and MWM FF inferior glide. PT-OP-R Modalities Start: 01/07/23 16:17 Freq: Status: Active Protocol: Document 01/07/23 16:20 DCW (Rec: 01/07/23 17:10 DCW [id number]) Ultrasound Therapy Treatment left MTP 3rd and 4th toes Treatment Duration (minutes) 8 Patient Position Prone Coupling Medium Ultrasound Gel Applicator Size (cm2) 2 Duty Cycle 100% PT-OP-T Assessment and Plan Start: 12/27/22 15:06 Freq: Status: Active Protocol: Document 01/10/23 14:30 SP (Rec: 01/10/23 15:55 SP [id number]) Physical Therapy Assessment Goals Three Impairment Pt experiences left foot pain when running Senior Living Goal (LTG) Pt to return to running pain free LTG Duration 02/26/23 Two Impairment Pt unable to participate in usual activity of swimming due to shoulder pain Hospice Care Transitions Coordinator Goal (LTG) Pt to return to normal level of swimming in order to demonstrate decreased right shoulder dysfunction LTG Duration 02/26/23 One Impairment Pt does not have an appropriate home exercise program Short Term Goal (STG) Pt to be independent and compliant with an appropriate HEP STG Duration 01/27/23 Assessment Summary Assessment Pt improved postural awareness with education and scapular mobility during manual and ther ex. Good form and response HEP review. Pt good response to added self STMs to distal lat and lateral scap musculature and eccentric FF and scaption theraband supported. It feels like helping me to to further range . Physical Therapy Plan Frequency and Duration Frequency of Treatment 2x/Week Plan of Care Start Date 12/27/22 Plan of Care End Date 02/26/23 Therapeutic Interventions Therapeutic Interventions Home Exercise Program,Joint Mobilizations,Manual Therapy, Neuromuscular Re-education, Patient/Caregiver Education, Self-Care/Home Management,Soft Tissue Mobilization,Taping, Therapeutic Activities, Therapeutic Exercises Modalities Cold Pack/Ice Massage,Electric Stimulation,Hot Packs, Iontophoresis,Ultrasound Other Therapeutic Interventions Iontophoresis /c Dexamethasone 10 mg/mL Next Visit Focus/Plan Next Note Type Treatment Note Next Visit Plan REcheck made more appts, added eccentric flexion/scation, self STMs for lat allow increase ROM. POC: STM, Anti-imflammatory modalities, joint mobilizations, strengthening
--- NOTE | 2023-01-14 14:43 | PT.OTN ---
Current Diagnoses Pain in right shoulder (01/14/23) Stiffness of right shoulder, not elsewhere classified (01/14/23) Stiffness of left foot, not elsewhere classified (01/14/23) Impingement syndrome of right shoulder (01/14/23) Pain in left foot (01/14/23) Physical Therapy Treatment Note PT-OP-A Visit Information Start: 12/27/22 15:06 Freq: Status: Active Protocol: Document 01/14/23 14:00 DCW (Rec: 01/14/23 14:43 DCW [id number]) Out-Patient Physical Therapy Visit Information Visit Information Visit Type Treatment Note Visit Start Time 14:00 Visit Stop Time 14:45 Total Visit Minutes 45 Visit Number 5 Number of BOBBIN DRIER Visits 0 Evaluation Information Evaluation Date 12/27/22 PT-OP-B Current Condition Start: 12/27/22 15:06 Freq: Status: Active Protocol: Document 12/27/22 12:20 DCW (Rec: 12/30/22 17:22 DCW [id number]) Current Condition History of Current Condition Onset Date 11/02/22 Current Complaints Pain with overhead motions after swimming, foot pain History of Current Condition Pt is a 62 year old male presenting with a two month history of right shoulder pain . Pt reports his typical exercise activity of choice is swimming, and on November 02 was out swimming and felt increased pain in his right shoulder. Reports it has continued ever since, but is very slowly getting better. Reports pain is worst with overhead lifting, doffing his shirt, or reaching back into extension/horizontal abduction . Also worsens at night. Has not been able to return to swimming. Additionally, notes he has been having foot pain, specifically on the ball of his left foot between the 3rd and 4th toes. This has been a long-standing injury for him, but during a prior course of PT, he had ultrasound treatment for it, which seemed to help a lot, so he is hoping to get that addressed in addition to his shoulder. Bothers him most when first starting to run. Treatment Goals Patient/Caregiver Goals Return to swimming and running pain-free PT-OP-C Subjective Start: 12/27/22 15:06 Freq: Status: Active Protocol: Document 01/14/23 14:00 DCW (Rec: 01/14/23 14:43 DCW [id number]) OP-PT Subjective Patient Comments Patient Comments My take is that it's getting better, it's just a slow recovery. PT-OP-E Functional Tests Start: 12/27/22 15:06 Freq: Status: Active Protocol: Document 12/27/22 12:20 DCW (Rec: 12/27/22 15:16 DCW [id number]) Functional Tests Apley's Scratch Test Action 1- Left Posterior opposite shoulder Action 1- Right Lateral opposite shoulder Action 2- Left T4 Action 2- Right T4 Action 3- Left T8 Action 3- Right L5 PT-OP-F Manual Assessment Start: 12/27/22 15:06 Freq: Status: Active Protocol: Document 12/27/22 12:20 DCW (Rec: 12/27/22 16:50 DCW [id number]) Manual Assessments Soft Tissue Assessment Soft Tissue Mobility Assessment Mild tone and tenderness to palpation 1/4: complaint of pain right supraspinatus and infraspinatus. Tenderness to palpation 2/4: pain with wincing right bicipital groove Joint Mobility Assessment Joint Mobility Assessment Tenderness to palpation 3/4: Wincing and withdraw R 3rd MTP joint PT-OP-K Range of Motion Start: 12/27/22 15:06 Freq: Status: Active Protocol: Document 12/27/22 12:20 DCW (Rec: 12/27/22 16:50 DCW [id number]) Shoulder Goniometric Range of Motion Shoulder Right Active Shoulder ROM WFL No Testing Position Sitting Flexion 120 Abduction 138 External Rotation at 0 degrees Abduction 42 Internal Rotation Behind Back (text) L5 Left Active Shoulder ROM WFL Yes Testing Position Sitting Flexion 180 Abduction 180 External Rotation at 0 degrees Abduction 60 Internal Rotation Behind Back (text) T8 PT-OP-L Special Tests Start: 12/27/22 15:06 Freq: Status: Active Protocol: Document 12/27/22 12:20 DCW (Rec: 12/27/22 16:50 DCW [id number]) Special Tests Shoulder Special Tests Yergason's Biceps Test Results Positive R Painful Arc Test Results Mildly positive R Passive ER Rotator Cuff Test Results Mildly positive R Lift-Off Rotator Cuff Test Results Mildly positive R Rea [place] Impingement Test Results Mildly positive R Grind Labrum Test Results Negative Drop Arm Rotator Cuff Test Results Mildly positive R Clunk Test Test Results Negative Belly Press Test Results Mildly positive R Apprehension Test Test Results Mildly positive R AC Joint Compression Test Results Negative PT-OP-M Strength Start: 12/27/22 15:06 Freq: Status: Active Protocol: Document 12/27/22 12:20 DCW (Rec: 12/27/22 16:50 DCW [id number]) Shoulder Strength Shoulder Manual Muscle Testing Right Flexion 5 Normal Abduction (C5) 5 Normal External Rotation 4- Good- Internal Rotation 5 Normal Left Flexion 5 Normal Abduction (C5) 5 Normal External Rotation 5 Normal Internal Rotation 5 Normal PT-OP-Q Treatments Start: 12/27/22 15:06 Freq: Status: Active Protocol: Document 01/14/23 14:00 DCW (Rec: 01/14/23 14:43 DCW [id number]) Manual Therapy Treatment Soft Tissue Mobilization R shld Body Location UT, LS, infrasp, pec, coracobrachialis, Mobilization Type Strumming,Sustained Pressure, Other Intensity/Depth Moderate Body Position Hooklying Comments manual, MWM shld functional mov't PROM> AROM punch fwd, ER Joint Mobilizations R scapulothoracic Direction retraction/depression Grade II Body Position Sidelying R GH Jt Direction inferior, posterior Grade II Body Position Hooklying PT-OP-R Modalities Start: 01/07/23 16:17 Freq: Status: Active Protocol: Document 01/14/23 14:00 DCW (Rec: 01/14/23 14:43 DCW [id number]) Ultrasound Therapy Treatment left MTP 3rd and 4th toes Treatment Duration (minutes) 8 Patient Position Prone Coupling Medium Ultrasound Gel Applicator Size (cm2) 2 Duty Cycle 100% PT-OP-T Assessment and Plan Start: 12/27/22 15:06 Freq: Status: Active Protocol: Document 01/14/23 14:00 DCW (Rec: 01/14/23 14:43 DCW [id number]) Physical Therapy Assessment Assessment Summary Assessment Pt progressing well, directed to increase either reps or resistance with HEP, but not both at once to avoid further overuse inflammation. Foot pain no longer limiting any hiking, although still slightly painful with initial running. Physical Therapy Plan Frequency and Duration Frequency of Treatment 2x/Week Plan of Care Start Date 12/27/22 Plan of Care End Date 02/26/23 Therapeutic Interventions Therapeutic Interventions Home Exercise Program,Joint Mobilizations,Manual Therapy, Neuromuscular Re-education, Patient/Caregiver Education, Self-Care/Home Management,Soft Tissue Mobilization,Taping, Therapeutic Activities, Therapeutic Exercises Modalities Cold Pack/Ice Massage,Electric Stimulation,Hot Packs, Iontophoresis,Ultrasound Other Therapeutic Interventions Iontophoresis /c Dexamethasone 10 mg/mL Next Visit Focus/Plan Next Note Type Treatment Note Next Visit Plan REcheck made more appts, added eccentric flexion/scation, self STMs for lat allow increase ROM. POC: STM, Anti-imflammatory modalities, joint mobilizations, strengthening
--- NOTE | 2023-01-16 08:17 | PT.OTN ---
Current Diagnoses Pain in right shoulder (01/16/23) Stiffness of right shoulder, not elsewhere classified (01/16/23) Stiffness of left foot, not elsewhere classified (01/16/23) Impingement syndrome of right shoulder (01/16/23) Pain in left foot (01/16/23) Physical Therapy Treatment Note PT-OP-A Visit Information Start: 12/27/22 15:06 Freq: Status: Active Protocol: Document 01/16/23 07:31 SP (Rec: 01/16/23 08:19 SP [id number]) Out-Patient Physical Therapy Visit Information Visit Information Visit Type Treatment Note Visit Start Time 07:31 Visit Stop Time 08:17 Total Visit Minutes 46 Visit Number 6 Number of PROCESSING LEAD Visits 1 Evaluation Information Evaluation Date 12/27/22 PT-OP-B Current Condition Start: 12/27/22 15:06 Freq: Status: Active Protocol: Document 12/27/22 12:20 DCW (Rec: 12/30/22 17:22 DCW [id number]) Current Condition History of Current Condition Onset Date 11/02/22 Current Complaints Pain with overhead motions after swimming, foot pain History of Current Condition Pt is a 62 year old male presenting with a two month history of right shoulder pain . Pt reports his typical exercise activity of choice is swimming, and on November 02 was out swimming and felt increased pain in his right shoulder. Reports it has continued ever since, but is very slowly getting better. Reports pain is worst with overhead lifting, doffing his shirt, or reaching back into extension/horizontal abduction . Also worsens at night. Has not been able to return to swimming. Additionally, notes he has been having foot pain, specifically on the ball of his left foot between the 3rd and 4th toes. This has been a long-standing injury for him, but during a prior course of PT, he had ultrasound treatment for it, which seemed to help a lot, so he is hoping to get that addressed in addition to his shoulder. Bothers him most when first starting to run. Treatment Goals Patient/Caregiver Goals Return to swimming and running pain-free PT-OP-C Subjective Start: 12/27/22 15:06 Freq: Status: Active Protocol: Document 01/16/23 07:31 SP (Rec: 01/16/23 08:19 SP [id number]) OP-PT Subjective Patient Comments Patient Comments Pt reports R shoulder doing little better, slow progress, exercises are ok. The eccentric FF, ABD, scaption OH band support has been really helpful supporting arm overhead. Pt reports hasn't felt the click/pop when wakes up lately so thinks PT helping . PT-OP-E Functional Tests Start: 12/27/22 15:06 Freq: Status: Active Protocol: Document 12/27/22 12:20 DCW (Rec: 12/27/22 15:16 DCW [id number]) Functional Tests Apley's Scratch Test Action 1- Left Posterior opposite shoulder Action 1- Right Lateral opposite shoulder Action 2- Left T4 Action 2- Right T4 Action 3- Left T8 Action 3- Right L5 PT-OP-F Manual Assessment Start: 12/27/22 15:06 Freq: Status: Active Protocol: Document 12/27/22 12:20 DCW (Rec: 12/27/22 16:50 DCW [id number]) Manual Assessments Soft Tissue Assessment Soft Tissue Mobility Assessment Mild tone and tenderness to palpation 1/4: complaint of pain right supraspinatus and infraspinatus. Tenderness to palpation 2/4: pain with wincing right bicipital groove Joint Mobility Assessment Joint Mobility Assessment Tenderness to palpation 3/4: Wincing and withdraw R 3rd MTP joint PT-OP-K Range of Motion Start: 12/27/22 15:06 Freq: Status: Active Protocol: Document 12/27/22 12:20 DCW (Rec: 12/27/22 16:50 DCW [id number]) Shoulder Goniometric Range of Motion Shoulder Right Active Shoulder ROM WFL No Testing Position Sitting Flexion 120 Abduction 138 External Rotation at 0 degrees Abduction 42 Internal Rotation Behind Back (text) L5 Left Active Shoulder ROM WFL Yes Testing Position Sitting Flexion 180 Abduction 180 External Rotation at 0 degrees Abduction 60 Internal Rotation Behind Back (text) T8 PT-OP-L Special Tests Start: 12/27/22 15:06 Freq: Status: Active Protocol: Document 12/27/22 12:20 DCW (Rec: 12/27/22 16:50 DCW [id number]) Special Tests Shoulder Special Tests Yergason's Biceps Test Results Positive R Painful Arc Test Results Mildly positive R Passive ER Rotator Cuff Test Results Mildly positive R Lift-Off Rotator Cuff Test Results Mildly positive R Rea Wellington Impingement Test Results Mildly positive R Grind Labrum Test Results Negative Drop Arm Rotator Cuff Test Results Mildly positive R Clunk Test Test Results Negative Belly Press Test Results Mildly positive R Apprehension Test Test Results Mildly positive R AC Joint Compression Test Results Negative PT-OP-M Strength Start: 12/27/22 15:06 Freq: Status: Active Protocol: Document 12/27/22 12:20 DCW (Rec: 12/27/22 16:50 DCW [id number]) Shoulder Strength Shoulder Manual Muscle Testing Right Flexion 5 Normal Abduction (C5) 5 Normal External Rotation 4- Good- Internal Rotation 5 Normal Left Flexion 5 Normal Abduction (C5) 5 Normal External Rotation 5 Normal Internal Rotation 5 Normal PT-OP-Q Treatments Start: 12/27/22 15:06 Freq: Status: Active Protocol: Document 01/16/23 07:31 SP (Rec: 01/16/23 08:19 SP [id number]) Therapeutic Exercises Prone Exercises T, I, Y Side right Resistance AROM modified Ys, 3#Is , 2# Ts Equipment Used prone table Reps/Minutes 10 reps each Comments contact/verbal cues for scapular retract/depress (no UT)-improved reps Sitting Exercises eccentric FF, Scaption TB Sitting Exercise Name REviewed FF, scaption, ABD Side right Resistance TB #2 orange> #3 TB green Reps/Minutes 5 reps, 2 SH Comments cued sit back fully, TA/ no LB arch, slow pacing mov't, improved ROM Manual Therapy Treatment Joint Mobilizations rib 1-2 Joint R Comments caudal with FM FF R scapulothoracic Direction retraction/depression Grade II Body Position Sidelying R GH Jt Direction inferior, posterior Grade II Body Position Hooklying PT-OP-R Modalities Start: 01/07/23 16:17 Freq: Status: Active Protocol: Document 01/14/23 14:00 DCW (Rec: 01/14/23 14:43 DCW [id number]) Ultrasound Therapy Treatment left MTP 3rd and 4th toes Treatment Duration (minutes) 8 Patient Position Prone Coupling Medium Ultrasound Gel Applicator Size (cm2) 2 Duty Cycle 100% PT-OP-T Assessment and Plan Start: 12/27/22 15:06 Freq: Status: Active Protocol: Document 01/16/23 07:31 SP (Rec: 01/16/23 08:19 SP [id number]) Physical Therapy Assessment Goals Three Impairment Pt experiences left foot pain when running Half-Way Goal (LTG) Pt to return to running pain free LTG Duration 02/26/23 Two Impairment Pt unable to participate in usual activity of swimming due to shoulder pain Half-Way Goal (LTG) Pt to return to normal level of swimming in order to demonstrate decreased right shoulder dysfunction LTG Duration 02/26/23 One Impairment Pt does not have an appropriate home exercise program Short Term Goal (STG) Pt to be independent and compliant with an appropriate HEP STG Duration 01/27/23 Assessment Summary Assessment Pt improved GH rhythm ROM post manual and added prone AROM and with resistance tolerated good form understood post vc/ tactile cues. Good carryover eccentric FF, ABD, scation TB support this tx, occasional cues for scap positioning ( retract/depress) in sitting theraband support toward assimulate back stroke in swimming. Pt good understanding anatomy and superintendent mechanical of scapular complex during ROM incorporated with manual and exercises today. Physical Therapy Plan Frequency and Duration Frequency of Treatment 2x/Week Plan of Care Start Date 12/27/22 Plan of Care End Date 02/26/23 Therapeutic Interventions Therapeutic Interventions Home Exercise Program,Joint Mobilizations,Manual Therapy, Neuromuscular Re-education, Patient/Caregiver Education, Self-Care/Home Management,Soft Tissue Mobilization,Taping, Therapeutic Activities, Therapeutic Exercises Modalities Cold Pack/Ice Massage,Electric Stimulation,Hot Packs, Iontophoresis,Ultrasound Other Therapeutic Interventions Iontophoresis /c Dexamethasone 10 mg/mL Next Visit Focus/Plan Next Note Type Treatment Note Next Visit Plan REcheck made more appts. Recheck prone Is, Ys, Ts. Scapular ROM progression. Trial D2 flexion/back stroke motion with TB on floor or over foam roller. POC: STM, Anti-imflammatory modalities, joint mobilizations, strengthening
--- NOTE | 2023-01-21 15:29 | PT.OTN ---
Current Diagnoses Pain in right shoulder (01/21/23) Stiffness of right shoulder, not elsewhere classified (01/21/23) Stiffness of left foot, not elsewhere classified (01/21/23) Impingement syndrome of right shoulder (01/21/23) Pain in left foot (01/21/23) Physical Therapy Treatment Note PT-OP-A Visit Information Start: 12/27/22 15:06 Freq: Status: Active Protocol: Document 01/21/23 14:45 DCW (Rec: 01/21/23 15:29 DCW [id number]) Out-Patient Physical Therapy Visit Information Visit Information Visit Type Treatment Note Visit Start Time 14:45 Visit Stop Time 15:30 Total Visit Minutes 45 Visit Number 7 Number of TERRITORY MANAGER GENERAL SALES Visits 0 Evaluation Information Evaluation Date 12/27/22 PT-OP-B Current Condition Start: 12/27/22 15:06 Freq: Status: Active Protocol: Document 12/27/22 12:20 DCW (Rec: 12/30/22 17:22 DCW [id number]) Current Condition History of Current Condition Onset Date 11/02/22 Current Complaints Pain with overhead motions after swimming, foot pain History of Current Condition Pt is a 62 year old male presenting with a two month history of right shoulder pain . Pt reports his typical exercise activity of choice is swimming, and on November 02 was out swimming and felt increased pain in his right shoulder. Reports it has continued ever since, but is very slowly getting better. Reports pain is worst with overhead lifting, doffing his shirt, or reaching back into extension/horizontal abduction . Also worsens at night. Has not been able to return to swimming. Additionally, notes he has been having foot pain, specifically on the ball of his left foot between the 3rd and 4th toes. This has been a long-standing injury for him, but during a prior course of PT, he had ultrasound treatment for it, which seemed to help a lot, so he is hoping to get that addressed in addition to his shoulder. Bothers him most when first starting to run. Treatment Goals Patient/Caregiver Goals Return to swimming and running pain-free PT-OP-C Subjective Start: 12/27/22 15:06 Freq: Status: Active Protocol: Document 01/21/23 14:45 DCW (Rec: 01/21/23 15:29 DCW [id number]) OP-PT Subjective Patient Comments Patient Comments I think I'm getting better mobility. PT-OP-E Functional Tests Start: 12/27/22 15:06 Freq: Status: Active Protocol: Document 12/27/22 12:20 DCW (Rec: 12/27/22 15:16 DCW [id number]) Functional Tests Apley's Scratch Test Action 1- Left Posterior opposite shoulder Action 1- Right Lateral opposite shoulder Action 2- Left T4 Action 2- Right T4 Action 3- Left T8 Action 3- Right L5 PT-OP-F Manual Assessment Start: 12/27/22 15:06 Freq: Status: Active Protocol: Document 12/27/22 12:20 DCW (Rec: 12/27/22 16:50 DCW [id number]) Manual Assessments Soft Tissue Assessment Soft Tissue Mobility Assessment Mild tone and tenderness to palpation 1/4: complaint of pain right supraspinatus and infraspinatus. Tenderness to palpation 2/4: pain with wincing right bicipital groove Joint Mobility Assessment Joint Mobility Assessment Tenderness to palpation 3/4: Wincing and withdraw R 3rd MTP joint PT-OP-K Range of Motion Start: 12/27/22 15:06 Freq: Status: Active Protocol: Document 12/27/22 12:20 DCW (Rec: 12/27/22 16:50 DCW [id number]) Shoulder Goniometric Range of Motion Shoulder Right Active Shoulder ROM WFL No Testing Position Sitting Flexion 120 Abduction 138 External Rotation at 0 degrees Abduction 42 Internal Rotation Behind Back (text) L5 Left Active Shoulder ROM WFL Yes Testing Position Sitting Flexion 180 Abduction 180 External Rotation at 0 degrees Abduction 60 Internal Rotation Behind Back (text) T8 PT-OP-L Special Tests Start: 12/27/22 15:06 Freq: Status: Active Protocol: Document 12/27/22 12:20 DCW (Rec: 12/27/22 16:50 DCW [id number]) Special Tests Shoulder Special Tests Yergason's Biceps Test Results Positive R Painful Arc Test Results Mildly positive R Passive ER Rotator Cuff Test Results Mildly positive R Lift-Off Rotator Cuff Test Results Mildly positive R Rea [place] Impingement Test Results Mildly positive R Grind Labrum Test Results Negative Drop Arm Rotator Cuff Test Results Mildly positive R Clunk Test Test Results Negative Belly Press Test Results Mildly positive R Apprehension Test Test Results Mildly positive R AC Joint Compression Test Results Negative PT-OP-M Strength Start: 12/27/22 15:06 Freq: Status: Active Protocol: Document 12/27/22 12:20 DCW (Rec: 12/27/22 16:50 DCW [id number]) Shoulder Strength Shoulder Manual Muscle Testing Right Flexion 5 Normal Abduction (C5) 5 Normal External Rotation 4- Good- Internal Rotation 5 Normal Left Flexion 5 Normal Abduction (C5) 5 Normal External Rotation 5 Normal Internal Rotation 5 Normal PT-OP-Q Treatments Start: 12/27/22 15:06 Freq: Status: Active Protocol: Document 01/21/23 14:45 DCW (Rec: 01/21/23 15:29 DCW [id number]) Gym Equipment Therapeutic Ball T, I, Y Exercise Details Prone T's, I's, Y's Ball Size/Color Green - 65 cm 3# DBs Body Position Prone Therapeutic Exercises Standing Exercises Flexion Stretch Standing Exercise Name End-range flexion stretch using Lat pull-down Side bilateral Other Exercises Resisted Ambulation Other Exercise Name Resisted UE side-stepping Resistance Red Manual Therapy Treatment Soft Tissue Mobilization R shld Body Location UT, LS, infrasp, pec, coracobrachialis, Mobilization Type Strumming,Sustained Pressure, Other Intensity/Depth Moderate Body Position Hooklying Comments manual, MWM shld functional mov't PROM> AROM punch fwd, ER Joint Mobilizations R scapulothoracic Direction retraction/depression Grade II Body Position Sidelying R GH Jt Direction inferior, posterior Grade II Body Position Hooklying PT-OP-R Modalities Start: 01/07/23 16:17 Freq: Status: Active Protocol: Document 01/21/23 14:45 DCW (Rec: 01/21/23 15:29 DCW [id number]) Ultrasound Therapy Treatment left MTP 3rd and 4th toes Treatment Duration (minutes) 8 Patient Position Prone Coupling Medium Ultrasound Gel Applicator Size (cm2) 2 Duty Cycle 100% PT-OP-T Assessment and Plan Start: 12/27/22 15:06 Freq: Status: Active Protocol: Document 01/21/23 14:45 DCW (Rec: 01/21/23 15:29 DCW [id number]) Physical Therapy Assessment Impairments Impairments Functional Activities, Functional Mobility,Pain,ROM, Soft Tissue Mobility,Strength, Tone Goals Three Impairment Pt experiences left foot pain when running Mcfp Goal (LTG) Pt to return to running pain free LTG Duration 02/26/23 Two Impairment Pt unable to participate in usual activity of swimming due to shoulder pain Mate Relief Goal (LTG) Pt to return to normal level of swimming in order to demonstrate decreased right shoulder dysfunction LTG Duration 02/26/23 One Impairment Pt does not have an appropriate home exercise program Short Term Goal (STG) Pt to be independent and compliant with an appropriate HEP STG Duration 01/27/23 Assessment Summary Assessment Pt continues to show good progress, significant improvement in R shoulder AROM , especially flexion. Pt so far compliant with HEP, doing well with independent activity . Physical Therapy Plan Frequency and Duration Frequency of Treatment 2x/Week Plan of Care Start Date 12/27/22 Plan of Care End Date 02/26/23 Therapeutic Interventions Therapeutic Interventions Home Exercise Program,Joint Mobilizations,Manual Therapy, Neuromuscular Re-education, Patient/Caregiver Education, Self-Care/Home Management,Soft Tissue Mobilization,Taping, Therapeutic Activities, Therapeutic Exercises Modalities Cold Pack/Ice Massage,Electric Stimulation,Hot Packs, Iontophoresis,Ultrasound Other Therapeutic Interventions Iontophoresis /c Dexamethasone 10 mg/mL Next Visit Focus/Plan Next Note Type Treatment Note Next Visit Plan REcheck made more appts, added eccentric flexion/scation, self STMs for lat allow increase ROM. POC: STM, Anti-imflammatory modalities, joint mobilizations, strengthening
--- NOTE | 2023-01-23 11:00 | PT.OTN ---
Current Diagnoses Pain in right shoulder (01/23/23) Stiffness of right shoulder, not elsewhere classified (01/23/23) Stiffness of left foot, not elsewhere classified (01/23/23) Impingement syndrome of right shoulder (01/23/23) Pain in left foot (01/23/23) Physical Therapy Treatment Note PT-OP-A Visit Information Start: 12/27/22 15:06 Freq: Status: Active Protocol: Document 01/23/23 10:15 DCW (Rec: 01/23/23 10:59 DCW [id number]) Out-Patient Physical Therapy Visit Information Visit Information Visit Type Treatment Note Visit Start Time 10:15 Visit Stop Time 11:00 Total Visit Minutes 45 Visit Number 8 Number of CODE ENFORCEMENT SUPERVISOR Visits 0 Evaluation Information Evaluation Date 12/27/22 PT-OP-B Current Condition Start: 12/27/22 15:06 Freq: Status: Active Protocol: Document 12/27/22 12:20 DCW (Rec: 12/30/22 17:22 DCW [id number]) Current Condition History of Current Condition Onset Date 11/02/22 Current Complaints Pain with overhead motions after swimming, foot pain History of Current Condition Pt is a 62 year old male presenting with a two month history of right shoulder pain . Pt reports his typical exercise activity of choice is swimming, and on November 02 was out swimming and felt increased pain in his right shoulder. Reports it has continued ever since, but is very slowly getting better. Reports pain is worst with overhead lifting, doffing his shirt, or reaching back into extension/horizontal abduction . Also worsens at night. Has not been able to return to swimming. Additionally, notes he has been having foot pain, specifically on the ball of his left foot between the 3rd and 4th toes. This has been a long-standing injury for him, but during a prior course of PT, he had ultrasound treatment for it, which seemed to help a lot, so he is hoping to get that addressed in addition to his shoulder. Bothers him most when first starting to run. Treatment Goals Patient/Caregiver Goals Return to swimming and running pain-free PT-OP-C Subjective Start: 12/27/22 15:06 Freq: Status: Active Protocol: Document 01/23/23 10:15 DCW (Rec: 01/23/23 11:00 DCW [id number]) OP-PT Subjective Patient Comments Patient Comments Pt reports he is feeling like he has turned a corner over the past week. PT-OP-E Functional Tests Start: 12/27/22 15:06 Freq: Status: Active Protocol: Document 12/27/22 12:20 DCW (Rec: 12/27/22 15:16 DCW [id number]) Functional Tests Apley's Scratch Test Action 1- Left Posterior opposite shoulder Action 1- Right Lateral opposite shoulder Action 2- Left T4 Action 2- Right T4 Action 3- Left T8 Action 3- Right L5 PT-OP-F Manual Assessment Start: 12/27/22 15:06 Freq: Status: Active Protocol: Document 12/27/22 12:20 DCW (Rec: 12/27/22 16:50 DCW [id number]) Manual Assessments Soft Tissue Assessment Soft Tissue Mobility Assessment Mild tone and tenderness to palpation 1/4: complaint of pain right supraspinatus and infraspinatus. Tenderness to palpation 2/4: pain with wincing right bicipital groove Joint Mobility Assessment Joint Mobility Assessment Tenderness to palpation 3/4: Wincing and withdraw R 3rd MTP joint PT-OP-K Range of Motion Start: 12/27/22 15:06 Freq: Status: Active Protocol: Document 12/27/22 12:20 DCW (Rec: 12/27/22 16:50 DCW [id number]) Shoulder Goniometric Range of Motion Shoulder Right Active Shoulder ROM WFL No Testing Position Sitting Flexion 120 Abduction 138 External Rotation at 0 degrees Abduction 42 Internal Rotation Behind Back (text) L5 Left Active Shoulder ROM WFL Yes Testing Position Sitting Flexion 180 Abduction 180 External Rotation at 0 degrees Abduction 60 Internal Rotation Behind Back (text) T8 PT-OP-L Special Tests Start: 12/27/22 15:06 Freq: Status: Active Protocol: Document 12/27/22 12:20 DCW (Rec: 12/27/22 16:50 DCW [id number]) Special Tests Shoulder Special Tests Yergason's Biceps Test Results Positive R Painful Arc Test Results Mildly positive R Passive ER Rotator Cuff Test Results Mildly positive R Lift-Off Rotator Cuff Test Results Mildly positive R Rea [place] Impingement Test Results Mildly positive R Grind Labrum Test Results Negative Drop Arm Rotator Cuff Test Results Mildly positive R Clunk Test Test Results Negative Belly Press Test Results Mildly positive R Apprehension Test Test Results Mildly positive R AC Joint Compression Test Results Negative PT-OP-M Strength Start: 12/27/22 15:06 Freq: Status: Active Protocol: Document 12/27/22 12:20 DCW (Rec: 12/27/22 16:50 DCW [id number]) Shoulder Strength Shoulder Manual Muscle Testing Right Flexion 5 Normal Abduction (C5) 5 Normal External Rotation 4- Good- Internal Rotation 5 Normal Left Flexion 5 Normal Abduction (C5) 5 Normal External Rotation 5 Normal Internal Rotation 5 Normal PT-OP-Q Treatments Start: 12/27/22 15:06 Freq: Status: Active Protocol: Document 01/23/23 10:15 DCW (Rec: 01/23/23 10:59 DCW [id number]) Gym Equipment Therapeutic Ball Stabilization Exercise Details Stabilization vs Perturbation Ball Size/Color Blue - 45 cm Body Position Supine Comments Shoulder held in 90 deg flexion Prone Walk-outs Exercise Details Prone Walk-outs Ball Size/Color Green - 65 cm Body Position Prone T, I, Y Exercise Details Prone T's, I's, Y's Ball Size/Color Green - 65 cm 3# DBs Body Position Prone Therapeutic Exercises Supine Exercises Shoulder Flexion Supine Exercise Name Shouilder Flexion /c PVC Side bilateral Resistance 10# Other Exercises UE Step-overs Other Exercise Name BOSU step-overs in plank Resisted Ambulation Other Exercise Name Resisted UE side-stepping Resistance Green Manual Therapy Treatment Soft Tissue Mobilization R shld Body Location UT, LS, infrasp, pec, coracobrachialis, Mobilization Type Strumming,Sustained Pressure, Other Intensity/Depth Moderate Body Position Hooklying Comments manual, MWM shld functional mov't PROM> AROM punch fwd, ER Joint Mobilizations R scapulothoracic Direction retraction/depression Grade II Body Position Sidelying R GH Jt Direction inferior, posterior Grade II Body Position Hooklying PT-OP-R Modalities Start: 01/07/23 16:17 Freq: Status: Active Protocol: Document 01/23/23 10:15 DCW (Rec: 01/23/23 10:59 DCW [id number]) Ultrasound Therapy Treatment left MTP 3rd and 4th toes Treatment Duration (minutes) 8 Patient Position Prone Coupling Medium Ultrasound Gel Applicator Size (cm2) 2 Duty Cycle 100% PT-OP-T Assessment and Plan Start: 12/27/22 15:06 Freq: Status: Active Protocol: Document 01/23/23 10:15 DCW (Rec: 01/23/23 10:59 DCW [id number]) Physical Therapy Assessment Impairments Impairments Functional Activities, Functional Mobility,Pain,ROM, Soft Tissue Mobility,Strength, Tone Goals Three Impairment Pt experiences left foot pain when running Compensation Advisor Goal (LTG) Pt to return to running pain free LTG Duration 02/26/23 Two Impairment Pt unable to participate in usual activity of swimming due to shoulder pain Compensation Advisor Goal (LTG) Pt to return to normal level of swimming in order to demonstrate decreased right shoulder dysfunction LTG Duration 02/26/23 One Impairment Pt does not have an appropriate home exercise program Short Term Goal (STG) Pt to be independent and compliant with an appropriate HEP STG Duration 01/27/23 Assessment Summary Assessment Pt progressing well, doing much better with both passive and active ROM, most ROM currently pain-free, still struggling a bit with full horizontal abduction/extension required for freestyle swimming stroke motion. Physical Therapy Plan Frequency and Duration Frequency of Treatment 2x/Week Plan of Care Start Date 12/27/22 Plan of Care End Date 02/26/23 Therapeutic Interventions Therapeutic Interventions Home Exercise Program,Joint Mobilizations,Manual Therapy, Neuromuscular Re-education, Patient/Caregiver Education, Self-Care/Home Management,Soft Tissue Mobilization,Taping, Therapeutic Activities, Therapeutic Exercises Modalities Cold Pack/Ice Massage,Electric Stimulation,Hot Packs, Iontophoresis,Ultrasound Other Therapeutic Interventions Iontophoresis /c Dexamethasone 10 mg/mL Next Visit Focus/Plan Next Note Type Treatment Note Next Visit Plan POC: STM, Anti-imflammatory modalities, joint mobilizations, strengthening
--- NOTE | 2023-02-03 16:14 | PT-OP ANOTE ---
RANGER AIDE called pt to provide tomorrow opening,declined busy. Pt reported R shld doing better not back to normal, L foot doing better and not normal but pleased with gains has made and doesn't feel needs to continue rehab for L foot. Pt stated will keep 02/06 appt with RANGER AIDE for R shld. Pt reported L shld bothering him and wants to see if can start therapy for L shld. RANGER AIDE discussed with PT will need new referral for L shld and pt stated will call Dr Coleman's office for new referral for L shld in meantime. PT suggested getting a follow up appt with PT for R shld and if gets new referral for L shld maybe can change appt to eval for L shld. RANGER AIDE will notify pt tomorrow of PT recommendations.
--- NOTE | 2023-02-11 14:15 | PT.OTN ---
Current Diagnoses Pain in right shoulder (02/11/23) Stiffness of right shoulder, not elsewhere classified (02/11/23) Stiffness of left foot, not elsewhere classified (02/11/23) Impingement syndrome of right shoulder (02/11/23) Pain in left foot (02/11/23) Physical Therapy Treatment Note PT-OP-A Visit Information Start: 12/27/22 15:06 Freq: Status: Active Protocol: Document 02/11/23 13:30 DCW (Rec: 02/11/23 14:15 DCW [id number]) Out-Patient Physical Therapy Visit Information Visit Information Visit Type Treatment Note Visit Start Time 13:30 Visit Stop Time 14:15 Total Visit Minutes 45 Visit Number 9 Number of IT TECHNICAL ARCHITECT Visits 0 Evaluation Information Evaluation Date 12/27/22 PT-OP-B Current Condition Start: 12/27/22 15:06 Freq: Status: Active Protocol: Document 12/27/22 12:20 DCW (Rec: 12/30/22 17:22 DCW [id number]) Current Condition History of Current Condition Onset Date 11/02/22 Current Complaints Pain with overhead motions after swimming, foot pain History of Current Condition Pt is a 62 year old male presenting with a two month history of right shoulder pain . Pt reports his typical exercise activity of choice is swimming, and on November 02 was out swimming and felt increased pain in his right shoulder. Reports it has continued ever since, but is very slowly getting better. Reports pain is worst with overhead lifting, doffing his shirt, or reaching back into extension/horizontal abduction . Also worsens at night. Has not been able to return to swimming. Additionally, notes he has been having foot pain, specifically on the ball of his left foot between the 3rd and 4th toes. This has been a long-standing injury for him, but during a prior course of PT, he had ultrasound treatment for it, which seemed to help a lot, so he is hoping to get that addressed in addition to his shoulder. Bothers him most when first starting to run. Treatment Goals Patient/Caregiver Goals Return to swimming and running pain-free PT-OP-C Subjective Start: 12/27/22 15:06 Freq: Status: Active Protocol: Document 02/11/23 13:30 DCW (Rec: 02/11/23 14:15 DCW [id number]) OP-PT Subjective Patient Comments Patient Comments The shoulder isn't quite 100% , but it's doing a lot better, I'm able to lift it overhead and move around, put it down without that pulsing pain. The foot's pretty stable, it's in a place where I can deal with it. I can still feel it for the first 1/2 mile, but then it goes away. PT-OP-E Functional Tests Start: 12/27/22 15:06 Freq: Status: Active Protocol: Document 12/27/22 12:20 DCW (Rec: 12/27/22 15:16 DCW [id number]) Functional Tests Apley's Scratch Test Action 1- Left Posterior opposite shoulder Action 1- Right Lateral opposite shoulder Action 2- Left T4 Action 2- Right T4 Action 3- Left T8 Action 3- Right L5 PT-OP-F Manual Assessment Start: 12/27/22 15:06 Freq: Status: Active Protocol: Document 12/27/22 12:20 DCW (Rec: 12/27/22 16:50 DCW [id number]) Manual Assessments Soft Tissue Assessment Soft Tissue Mobility Assessment Mild tone and tenderness to palpation 1/4: complaint of pain right supraspinatus and infraspinatus. Tenderness to palpation 2/4: pain with wincing right bicipital groove Joint Mobility Assessment Joint Mobility Assessment Tenderness to palpation 3/4: Wincing and withdraw R 3rd MTP joint PT-OP-K Range of Motion Start: 12/27/22 15:06 Freq: Status: Active Protocol: Document 12/27/22 12:20 DCW (Rec: 12/27/22 16:50 DCW [id number]) Shoulder Goniometric Range of Motion Shoulder Right Active Shoulder ROM WFL No Testing Position Sitting Flexion 120 Abduction 138 External Rotation at 0 degrees Abduction 42 Internal Rotation Behind Back (text) L5 Left Active Shoulder ROM WFL Yes Testing Position Sitting Flexion 180 Abduction 180 External Rotation at 0 degrees Abduction 60 Internal Rotation Behind Back (text) T8 PT-OP-L Special Tests Start: 12/27/22 15:06 Freq: Status: Active Protocol: Document 12/27/22 12:20 DCW (Rec: 12/27/22 16:50 DCW [id number]) Special Tests Shoulder Special Tests Yergason's Biceps Test Results Positive R Painful Arc Test Results Mildly positive R Passive ER Rotator Cuff Test Results Mildly positive R Lift-Off Rotator Cuff Test Results Mildly positive R Rea Wellington Impingement Test Results Mildly positive R Grind Labrum Test Results Negative Drop Arm Rotator Cuff Test Results Mildly positive R Clunk Test Test Results Negative Belly Press Test Results Mildly positive R Apprehension Test Test Results Mildly positive R AC Joint Compression Test Results Negative PT-OP-M Strength Start: 12/27/22 15:06 Freq: Status: Active Protocol: Document 12/27/22 12:20 DCW (Rec: 12/27/22 16:50 DCW [id number]) Shoulder Strength Shoulder Manual Muscle Testing Right Flexion 5 Normal Abduction (C5) 5 Normal External Rotation 4- Good- Internal Rotation 5 Normal Left Flexion 5 Normal Abduction (C5) 5 Normal External Rotation 5 Normal Internal Rotation 5 Normal PT-OP-Q Treatments Start: 12/27/22 15:06 Freq: Status: Active Protocol: Document 02/11/23 13:30 DCW (Rec: 02/11/23 14:15 DCW [id number]) Gym Equipment Therapeutic Ball Stabilization Exercise Details Stabilization vs Perturbation Ball Size/Color Blue - 45 cm Body Position Supine Comments Shoulder held in 90 deg flexion Therapeutic Exercises Supine Exercises Shoulder Flexion Supine Exercise Name Shoulder Flexion /c PVC Side bilateral Resistance 10# Other Exercises Resisted Ambulation Other Exercise Name Resisted UE side-stepping Resistance Green Manual Therapy Treatment Soft Tissue Mobilization R shld Body Location UT, LS, infrasp, pec, coracobrachialis, Mobilization Type Strumming,Sustained Pressure, Other Intensity/Depth Moderate Body Position Hooklying Comments manual, MWM shld functional mov't PROM> AROM punch fwd, ER Joint Mobilizations R scapulothoracic Direction retraction/depression Grade II Body Position Sidelying R GH Jt Direction inferior, posterior Grade II Body Position Hooklying PT-OP-R Modalities Start: 01/07/23 16:17 Freq: Status: Active Protocol: Document 02/11/23 13:30 DCW (Rec: 02/11/23 14:15 DCW [id number]) Ultrasound Therapy Treatment left MTP 3rd and 4th toes Treatment Duration (minutes) 8 Patient Position Prone Coupling Medium Ultrasound Gel Applicator Size (cm2) 2 Duty Cycle 100% PT-OP-T Assessment and Plan Start: 12/27/22 15:06 Freq: Status: Active Protocol: Document 02/11/23 13:30 DCW (Rec: 02/11/23 14:15 DCW [id number]) Physical Therapy Assessment Impairments Impairments Functional Activities, Functional Mobility,Pain,ROM, Soft Tissue Mobility,Strength, Tone Goals Three Impairment Pt experiences left foot pain when running Mcc Goal (LTG) Pt to return to running pain free LTG Duration 02/26/23 Two Impairment Pt unable to participate in usual activity of swimming due to shoulder pain Mcc Goal (LTG) Pt to return to normal level of swimming in order to demonstrate decreased right shoulder dysfunction LTG Duration 02/26/23 One Impairment Pt does not have an appropriate home exercise program Short Term Goal (STG) Pt to be independent and compliant with an appropriate HEP STG Duration 01/27/23 Assessment Summary Assessment Pt doing very well, however exhibiting increased symptoms now on left shoulder. May be getting new referral in the future to try to address left shoulder after d/c right shoulder and foot. Physical Therapy Plan Frequency and Duration Frequency of Treatment 2x/Week Plan of Care Start Date 12/27/22 Plan of Care End Date 02/26/23 Therapeutic Interventions Therapeutic Interventions Home Exercise Program,Joint Mobilizations,Manual Therapy, Neuromuscular Re-education, Patient/Caregiver Education, Self-Care/Home Management,Soft Tissue Mobilization,Taping, Therapeutic Activities, Therapeutic Exercises Modalities Cold Pack/Ice Massage,Electric Stimulation,Hot Packs, Iontophoresis,Ultrasound Other Therapeutic Interventions Iontophoresis /c Dexamethasone 10 mg/mL Next Visit Focus/Plan Next Note Type Treatment Note Next Visit Plan POC: STM, Anti-imflammatory modalities, joint mobilizations, strengthening
--- NOTE | 2023-02-19 10:15 | PT.OTN ---
Current Diagnoses Pain in right shoulder (02/19/23) Stiffness of right shoulder, not elsewhere classified (02/19/23) Stiffness of left foot, not elsewhere classified (02/19/23) Impingement syndrome of right shoulder (02/19/23) Pain in left foot (02/19/23) Physical Therapy Treatment Note PT-OP-A Visit Information Start: 12/27/22 15:06 Freq: Status: Active Protocol: Document 02/19/23 09:30 DCW (Rec: 02/19/23 10:15 DCW [id number]) Out-Patient Physical Therapy Visit Information Visit Information Visit Type Treatment Note Visit Start Time 09:30 Visit Stop Time 10:15 Total Visit Minutes 45 Visit Number 10 Number of SHAKE BACKBOARD NOTCHER Visits 0 Evaluation Information Evaluation Date 12/27/22 PT-OP-B Current Condition Start: 12/27/22 15:06 Freq: Status: Active Protocol: Document 12/27/22 12:20 DCW (Rec: 12/30/22 17:22 DCW [id number]) Current Condition History of Current Condition Onset Date 11/02/22 Current Complaints Pain with overhead motions after swimming, foot pain History of Current Condition Pt is a 62 year old male presenting with a two month history of right shoulder pain . Pt reports his typical exercise activity of choice is swimming, and on November 02 was out swimming and felt increased pain in his right shoulder. Reports it has continued ever since, but is very slowly getting better. Reports pain is worst with overhead lifting, doffing his shirt, or reaching back into extension/horizontal abduction . Also worsens at night. Has not been able to return to swimming. Additionally, notes he has been having foot pain, specifically on the ball of his left foot between the 3rd and 4th toes. This has been a long-standing injury for him, but during a prior course of PT, he had ultrasound treatment for it, which seemed to help a lot, so he is hoping to get that addressed in addition to his shoulder. Bothers him most when first starting to run. Treatment Goals Patient/Caregiver Goals Return to swimming and running pain-free PT-OP-C Subjective Start: 12/27/22 15:06 Freq: Status: Active Protocol: Document 02/19/23 09:30 DCW (Rec: 02/19/23 10:15 DCW [id number]) OP-PT Subjective Patient Comments Patient Comments Pt reports his foot is good, both shoulders are feeling much better. Has been to the pool twice this week with no flare-up, but admits he is taking it a little easier. PT-OP-E Functional Tests Start: 12/27/22 15:06 Freq: Status: Active Protocol: Document 12/27/22 12:20 DCW (Rec: 12/27/22 15:16 DCW [id number]) Functional Tests Apley's Scratch Test Action 1- Left Posterior opposite shoulder Action 1- Right Lateral opposite shoulder Action 2- Left T4 Action 2- Right T4 Action 3- Left T8 Action 3- Right L5 PT-OP-F Manual Assessment Start: 12/27/22 15:06 Freq: Status: Active Protocol: Document 12/27/22 12:20 DCW (Rec: 12/27/22 16:50 DCW [id number]) Manual Assessments Soft Tissue Assessment Soft Tissue Mobility Assessment Mild tone and tenderness to palpation 1/4: complaint of pain right supraspinatus and infraspinatus. Tenderness to palpation 2/4: pain with wincing right bicipital groove Joint Mobility Assessment Joint Mobility Assessment Tenderness to palpation 3/4: Wincing and withdraw R 3rd MTP joint PT-OP-K Range of Motion Start: 12/27/22 15:06 Freq: Status: Active Protocol: Document 12/27/22 12:20 DCW (Rec: 12/27/22 16:50 DCW [id number]) Shoulder Goniometric Range of Motion Shoulder Right Active Shoulder ROM WFL No Testing Position Sitting Flexion 120 Abduction 138 External Rotation at 0 degrees Abduction 42 Internal Rotation Behind Back (text) L5 Left Active Shoulder ROM WFL Yes Testing Position Sitting Flexion 180 Abduction 180 External Rotation at 0 degrees Abduction 60 Internal Rotation Behind Back (text) T8 PT-OP-L Special Tests Start: 12/27/22 15:06 Freq: Status: Active Protocol: Document 12/27/22 12:20 DCW (Rec: 12/27/22 16:50 DCW [id number]) Special Tests Shoulder Special Tests Yergason's Biceps Test Results Positive R Painful Arc Test Results Mildly positive R Passive ER Rotator Cuff Test Results Mildly positive R Lift-Off Rotator Cuff Test Results Mildly positive R Rea [place] Impingement Test Results Mildly positive R Grind Labrum Test Results Negative Drop Arm Rotator Cuff Test Results Mildly positive R Clunk Test Test Results Negative Belly Press Test Results Mildly positive R Apprehension Test Test Results Mildly positive R AC Joint Compression Test Results Negative PT-OP-M Strength Start: 12/27/22 15:06 Freq: Status: Active Protocol: Document 12/27/22 12:20 DCW (Rec: 12/27/22 16:50 DCW [id number]) Shoulder Strength Shoulder Manual Muscle Testing Right Flexion 5 Normal Abduction (C5) 5 Normal External Rotation 4- Good- Internal Rotation 5 Normal Left Flexion 5 Normal Abduction (C5) 5 Normal External Rotation 5 Normal Internal Rotation 5 Normal PT-OP-Q Treatments Start: 12/27/22 15:06 Freq: Status: Active Protocol: Document 02/19/23 09:30 DCW (Rec: 02/19/23 10:15 DCW [id number]) Gym Equipment Shuttle Rebound Ball Toss Exercise Details Ball Toss Comments Red 1000g ball Therapeutic Exercises Standing Exercises PNF Standing Exercise Name D1/D2 UE Chop/Lift Side bilateral Resistance Double Blue Horizontal Adduction Standing Exercise Name Full horiz abduction end-range Side right Resistance Green Other Exercises Body Blade Other Exercise Name Flexion, Abduction Side bilateral Manual Therapy Treatment Soft Tissue Mobilization R shld Body Location UT, LS, infrasp, pec, coracobrachialis, Mobilization Type Strumming,Sustained Pressure, Other Intensity/Depth Moderate Body Position Hooklying Comments manual, MWM shld functional mov't PROM> AROM punch fwd, ER Joint Mobilizations R scapulothoracic Direction retraction/depression Grade II Body Position Sidelying R GH Jt Direction inferior, posterior Grade II Body Position Hooklying PT-OP-R Modalities Start: 01/07/23 16:17 Freq: Status: Active Protocol: Document 02/11/23 13:30 DCW (Rec: 02/11/23 14:15 DCW [id number]) Ultrasound Therapy Treatment left MTP 3rd and 4th toes Treatment Duration (minutes) 8 Patient Position Prone Coupling Medium Ultrasound Gel Applicator Size (cm2) 2 Duty Cycle 100% PT-OP-T Assessment and Plan Start: 12/27/22 15:06 Freq: Status: Active Protocol: Document 02/19/23 09:30 DCW (Rec: 02/19/23 10:15 DCW [id number]) Physical Therapy Assessment Impairments Impairments Functional Activities, Functional Mobility,Pain,ROM, Soft Tissue Mobility,Strength, Tone Goals Three Impairment Pt experiences left foot pain when running Embossing Machine Operator Goal (LTG) Pt to return to running pain free LTG Duration 02/26/23 Two Impairment Pt unable to participate in usual activity of swimming due to shoulder pain Long-Term Goal (LTG) Pt to return to normal level of swimming in order to demonstrate decreased right shoulder dysfunction LTG Duration 02/26/23 One Impairment Pt does not have an appropriate home exercise program Short Term Goal (STG) Pt to be independent and compliant with an appropriate HEP STG Duration 01/27/23 Assessment Summary Assessment Pt has made great progress overall, feeling very good with current level of function and knowledge of HEP. Will likely benefit from one remaining PT visit to review HEP and answer any lingering questions. Physical Therapy Plan Frequency and Duration Frequency of Treatment 2x/Week Plan of Care Start Date 12/27/22 Plan of Care End Date 02/26/23 Therapeutic Interventions Therapeutic Interventions Home Exercise Program,Joint Mobilizations,Manual Therapy, Neuromuscular Re-education, Patient/Caregiver Education, Self-Care/Home Management,Soft Tissue Mobilization,Taping, Therapeutic Activities, Therapeutic Exercises Modalities Cold Pack/Ice Massage,Electric Stimulation,Hot Packs, Iontophoresis,Ultrasound Other Therapeutic Interventions Iontophoresis /c Dexamethasone 10 mg/mL Next Visit Focus/Plan Next Note Type Treatment Note Next Visit Plan POC: STM, Anti-imflammatory modalities, joint mobilizations, strengthening
--- NOTE | 2023-02-25 10:54 | PT.OTN ---
Current Diagnoses Pain in right shoulder (02/25/23) Stiffness of right shoulder, not elsewhere classified (02/25/23) Stiffness of left foot, not elsewhere classified (02/25/23) Impingement syndrome of right shoulder (02/25/23) Pain in left foot (02/25/23) Physical Therapy Treatment Note PT-OP-A Visit Information Start: 12/27/22 15:06 Freq: Status: Active Protocol: Document 02/25/23 10:15 DCW (Rec: 02/25/23 10:53 DCW [id number]) Out-Patient Physical Therapy Visit Information Visit Information Visit Type Discharge Summary Visit Start Time 10:15 Visit Stop Time 10:45 Total Visit Minutes 30 Visit Number 11 Number of TOWEL ROLLING MACHINE OPERATOR Visits 0 Evaluation Information Evaluation Date 12/27/22 PT-OP-B Current Condition Start: 12/27/22 15:06 Freq: Status: Active Protocol: Document 12/27/22 12:20 DCW (Rec: 12/30/22 17:22 DCW [id number]) Current Condition History of Current Condition Onset Date 11/02/22 Current Complaints Pain with overhead motions after swimming, foot pain History of Current Condition Pt is a 62 year old male presenting with a two month history of right shoulder pain . Pt reports his typical exercise activity of choice is swimming, and on November 02 was out swimming and felt increased pain in his right shoulder. Reports it has continued ever since, but is very slowly getting better. Reports pain is worst with overhead lifting, doffing his shirt, or reaching back into extension/horizontal abduction . Also worsens at night. Has not been able to return to swimming. Additionally, notes he has been having foot pain, specifically on the ball of his left foot between the 3rd and 4th toes. This has been a long-standing injury for him, but during a prior course of PT, he had ultrasound treatment for it, which seemed to help a lot, so he is hoping to get that addressed in addition to his shoulder. Bothers him most when first starting to run. Treatment Goals Patient/Caregiver Goals Return to swimming and running pain-free PT-OP-C Subjective Start: 12/27/22 15:06 Freq: Status: Active Protocol: Document 02/25/23 10:15 DCW (Rec: 02/25/23 10:53 DCW [id number]) OP-PT Subjective Patient Comments Patient Comments Overall, pt notes he has been feeling better, but the past few days have been a bit of regression, and his shoulder is hurting enough during the night to wake him up. PT-OP-E Functional Tests Start: 12/27/22 15:06 Freq: Status: Active Protocol: Document 02/25/23 10:15 DCW (Rec: 02/25/23 10:28 DCW [id number]) Functional Tests Apley's Scratch Test Action 1- Left Posterior opposite shoulder Action 1- Right Posterior opposite shoulder Action 2- Left T4 Action 2- Right T4 Action 3- Left T8 Action 3- Right T8 PT-OP-F Manual Assessment Start: 12/27/22 15:06 Freq: Status: Active Protocol: Document 02/25/23 10:15 DCW (Rec: 02/25/23 10:28 DCW [id number]) Manual Assessments Soft Tissue Assessment Soft Tissue Mobility Assessment Tenderness to palpation 05/29: complaint of pain right LH biceps tendon and right subscap PT-OP-K Range of Motion Start: 12/27/22 15:06 Freq: Status: Active Protocol: Document 02/25/23 10:15 DCW (Rec: 02/25/23 10:28 DCW [id number]) Shoulder Goniometric Range of Motion Shoulder Right Active Shoulder ROM WFL No Testing Position Sitting Flexion 158 Abduction 180 External Rotation at 0 degrees Abduction 55 Internal Rotation Behind Back (text) T8 PT-OP-L Special Tests Start: 12/27/22 15:06 Freq: Status: Active Protocol: Document 02/25/23 10:15 DCW (Rec: 02/25/23 10:28 DCW [id number]) Special Tests Shoulder Special Tests Yergason's Biceps Test Results Positive R Painful Arc Test Results Negative Passive ER Rotator Cuff Test Results Mildly positive R Lift-Off Rotator Cuff Test Results Negative Rea [place] Impingement Test Results Negative Grind Labrum Test Results Negative Drop Arm Rotator Cuff Test Results Negative Clunk Test Test Results Negative Belly Press Test Results Negative Apprehension Test Test Results Mildly positive R AC Joint Compression Test Results Negative PT-OP-M Strength Start: 12/27/22 15:06 Freq: Status: Active Protocol: Document 02/25/23 10:15 DCW (Rec: 02/25/23 10:28 DCW [id number]) Shoulder Strength Shoulder Manual Muscle Testing Right Flexion 5 Normal Abduction (C5) 5 Normal External Rotation 5 Normal Internal Rotation 5 Normal Left Flexion 5 Normal Abduction (C5) 5 Normal External Rotation 5 Normal Internal Rotation 5 Normal PT-OP-Q Treatments Start: 12/27/22 15:06 Freq: Status: Active Protocol: Document 02/25/23 10:15 DCW (Rec: 02/25/23 10:53 OKW [id number]) Manual Therapy Treatment Soft Tissue Mobilization R shld Body Location UT, LS, infrasp, pec, coracobrachialis, Mobilization Type Strumming,Sustained Pressure, Other Intensity/Depth Moderate Body Position Hooklying Comments manual, MWM shld functional mov't PROM> AROM punch fwd, ER Joint Mobilizations R scapulothoracic Direction retraction/depression Grade II Body Position Sidelying R GH Jt Direction inferior, posterior Grade II Body Position Hooklying PT-OP-R Modalities Start: 01/07/23 16:17 Freq: Status: Active Protocol: Document 02/11/23 13:30 DCW (Rec: 02/11/23 14:15 DCW [id number]) Ultrasound Therapy Treatment left MTP 3rd and 4th toes Treatment Duration (minutes) 8 Patient Position Prone Coupling Medium Ultrasound Gel Applicator Size (cm2) 2 Duty Cycle 100% PT-OP-T Assessment and Plan Start: 12/27/22 15:06 Freq: Status: Active Protocol: Document 02/25/23 10:15 DCW (Rec: 02/25/23 10:53 [facility] [id number]) Physical Therapy Assessment Impairments Impairments Functional Activities, Functional Mobility,Pain,ROM, Soft Tissue Mobility,Strength, Tone Goals Three Impairment Pt experiences left foot pain when running Long-Term Goal (LTG) Pt to return to running pain free LTG Duration Met Two Impairment Pt unable to participate in usual activity of swimming due to shoulder pain Carton Catcher Goal (LTG) Pt to return to normal level of swimming in order to demonstrate decreased right shoulder dysfunction LTG Duration Met One Impairment Pt does not have an appropriate home exercise program Short Term Goal (STG) Pt to be independent and compliant with an appropriate HEP STG Duration Met Progress Towards Goals Progress Towards Goals Goals Met Assessment Summary Assessment Pt pregressing well, some lingering pain at night, but pt feels comfortable with discharge with independent HEP at this time. Does note that if his right shoulder declines in function again, he will likely request an MRI prior to returning to PT with a new referral. Physical Therapy Plan Frequency and Duration Frequency of Treatment 2x/Week Plan of Care Start Date 12/27/22 Plan of Care End Date 02/26/23 Therapeutic Interventions Therapeutic Interventions Home Exercise Program,Joint Mobilizations,Manual Therapy, Neuromuscular Re-education, Patient/Caregiver Education, Self-Care/Home Management,Soft Tissue Mobilization,Taping, Therapeutic Activities, Therapeutic Exercises Modalities Cold Pack/Ice Massage,Electric Stimulation,Hot Packs, Iontophoresis,Ultrasound Other Therapeutic Interventions Iontophoresis /c Dexamethasone 10 mg/mL Discharge Physical Therapy Discharge Reasons Goals Met Next Visit Focus/Plan Next Note Type Discharge Summary
== END 2023-02-26 16:52 | disposition home or self-care (01) ==
LOC: PHYS 10:15
PROVIDERS: Family Provider Family Medicine; PCP Family Medicine; Referring Provider Nurse Practitioner Family; Visit Provider Nurse Practitioner Family
DX: M79.672 Pain in left foot (principal); M25.511 Pain in right shoulder; M75.41 Impingement syndrome of right shoulder; M25.675 Stiffness of left foot, not elsewhere classified; M25.611 Stiffness of right shoulder, not elsewhere classified
CPT/HCPCS: 97035; 97110; 97140; 97162